=== PATIENT | female | born 1930 | race Caucasian/White ===

== ENCOUNTER 2016-10-09 10:49 | Inpatient (IN) | payer MEDICARE ==
[~2016-10-09] VITALS: Ht 160 cm; Wt 59.0 kg
[2016-10-09 12:04] LABS: BASO % 0 % (0-3); EOS % 0 % (0-3); HEMATOCRIT 36.7 % (36.0-47.0); HEMOGLOBIN 11.6 g/dL (12.0-15.5); LYMPH # 0.9 x10^3/uL (1.0-4.8); LYMPH % 5 % (24-48); MEAN CORPUSCULAR HEMOGLOBIN 28 pg (25-35); MEAN CORPUSCULAR HGB CONC 32 g/dL (31-37); MEAN CORPUSCULAR VOLUME 88 fL (79-100); MONO % 6 % (0-9); NEUT % 89 % (31-73); PLATELET COUNT 246 x10^3/uL (140-400); RED BLOOD COUNT 4.19 x10^6/uL (3.50-5.40); RED CELL DISTRIBUTION WIDTH 14.2 % (11.5-14.5); WHITE BLOOD COUNT 19.3 x10^3/uL (4.0-11.0)
[2016-10-09 12:19] LABS: ALBUMIN 2.9 g/dL (3.4-5.0); ALBUMIN/GLOBULIN RATIO 0.7 (1.0-1.7); CALCIUM 9.1 mg/dL (8.5-10.1); GFR 52.4; TOTAL BILIRUBIN 0.9 mg/dL (0.2-1.0); TOTAL PROTEIN 7.1 g/dL (6.4-8.2)
[2016-10-09 12:21] LABS: POTASSIUM 2.1 mmol/L (3.5-5.1)
--- NOTE | 2016-10-09 12:36 | RAD ---
Clinical indications: Altered mental status today. Left facial droop. History of stroke.. Technique: Noncontrast axial cross sectional scanning of the head was performed. PQRS Compliance Statement: One or more of the following individualized dose reduction techniques were utilized for this examination: 1. Automated exposure control 2. Adjustment of the mA and/or kV according to patient size 3. Use of iterative reconstruction technique Comparison: None at this facility. Findings: A ventricular shunt catheter is in place extending through the body of the right lateral ventricle extending across the midline through the foramen of [place]ro. No acute intracranial hemorrhage or midline shift or mass-effect or hydrocephalus or extra-axial fluid collection is seen. Moderate bilateral periventricular white matter hypodensity seen consistent chronic small vessel ischemic disease in this age group. There is some encephalomalacia along the ventricular shunt catheter tract. No skull fracture or pneumocephalus is seen. There is moderate mucosal thickening of the inferior lateral aspect of the left sphenoid sinus. There is mild mucosal thickening of the right ethmoid sinus. The maxillary sinuses are not completely seen in this study. The middle ear cavities and mastoid sinuses appear clear. Impression: No acute intracranial hemorrhage is seen. Ventricular shunt catheter in place without hydrocephalus. Chronic small vessel ischemic disease of the periventricular white matter. Mucosal thickening of the right ethmoid sinus and the left sphenoid sinus.
--- NOTE | 2016-10-09 12:43 | PHYS DOC ---
Past Medical History Past Medical History: Dementia, High Cholesterol, Hypertension Past Surgical History: No Surgical History Alcohol Use: None Drug Use: None Adult General Chief Complaint Chief Complaint: NEURO SYMPTOMS/DEFICITS HPI HPI 86-year-old female with history of dementia who [facility] in a [facility] presents [facility] the [facility] for evaluation. She was seen by a nurse this morning and was noted to not be as active as usual and had some shortness of breath. She has not been eating or drinking normally for the last 24 hours. Patient is unable to provide any history secondary to dementia [] Review of Systems Review of Systems Review of systems is unobtainable secondary to dementia Current Medications Current Medications Current Medications Medications (Trade) Dose Ordered Sig/Efren Start Time Stop Time Status Last Admin Dose Admin Acetaminophen 650 mg 650 mg PRN Q4HRS PRN 10/09/16 13:15 10/10/16 13:14 Ceftriaxone Sodium (Rocephin 1gm Ivpb For Omni) 50 ml @ 100 mls/hr 1X ONCE 10/09/16 13:15 10/09/16 13:44 Cancel Ondansetron HCl 4 mg 4 mg PRN Q8HRS PRN 10/09/16 13:15 10/10/16 13:14 Piperacillin Sod/ Tazobactam Sod (Zosyn Per Pharmacy) 1 each PRN DAILY PRN 10/09/16 13:30 Potassium Chloride 40 meq 40 meq 1X ONCE 10/09/16 13:15 10/09/16 17:19 DC Potassium Chloride/Sodium Chloride (KCl 20 Meq-NS 1,000 ml Iv Soln) 1,000 ml @ 75 mls/hr 1X ONCE 10/09/16 13:15 10/10/16 02:34 DC 10/09/16 13:55 75 MLS/HR Sodium Chloride (Iv Sodium Chloride 0.9% 1000ml Bag) 1,000 ml @ 150 mls/hr Q6H40M 10/09/16 13:15 10/10/16 13:14 Allergies Allergies Allergies Coded Allergies Type Severity Reaction Last Updated Verified pseudoephedrine Allergy Intermediate 10/09/16 Yes triprolidine Allergy Intermediate 10/09/16 Yes Physical Exam Physical Exam Constitutional: Frail, dehydrated and acutely ill. [] HENT: Normocephalic, atraumatic, bilateral external ears normal, oropharynx moist, no oral exudates, nose normal. [] Eyes: PERRLA, EOMI, conjunctiva normal, no discharge. [] Neck: Normal range of motion, no tenderness, supple, no stridor. [] Cardiovascular:Heart rate regular rhythm, no murmur [] Lungs & Thorax: Bilateral breath sounds clear to auscultation [] Abdomen: Bowel sounds normal, soft, no tenderness, no masses, no pulsatile masses. [] Skin: A 5 x 5 cm wound to the right elbow area which is dressed at this time but there is no surrounding erythema is somewhat painful to palpate but there is no fusiform swelling or findings consistent with an abscess [] Back: No tenderness, no CVA tenderness. [] Extremities: No tenderness, no cyanosis, no clubbing, ROM intact, no edema. [] Neurologic: Alert but confused, does not cooperate with formal neuro exam. [] Psychologic: Flat affect. [] Current Patient Data Vital Signs Vital Signs Date Time Temp Pulse Resp B/P Pulse Ox O2 Delivery O2 Flow Rate FiO2 10/09/16 13:18 98 28 130/66 94 Nasal Cannula 1 10/09/16 10:52 98.7 98.7 Lab Values Laboratory Tests Test 10/09/16 11:25 10/09/16 13:25 White Blood Count 19.3x10^3/uL (4.0-11.0) H Red Blood Count 4.19x10^6/uL (3.50-5.40) Hemoglobin 11.6g/dL (12.0-15.5) L Hematocrit 36.7% (36.0-47.0) Mean Corpuscular Volume 88fL (79-100) Mean Corpuscular Hemoglobin 28pg (25-35) Mean Corpuscular Hemoglobin Concent 32g/dL (31-37) Red Cell Distribution Width 14.2% (11.5-14.5) Platelet Count 246x10^3/uL (140-400) Neutrophils (%) (Auto) 89% (31-73) H Lymphocytes (%) (Auto) 5% (24-48) L Monocytes (%) (Auto) 6% (0-9) Eosinophils (%) (Auto) 0% (0-3) Basophils (%) (Auto) 0% (0-3) Neutrophils # (Auto) 17.1x10^3uL (1.8-7.7) H Lymphocytes # (Auto) 0.9x10^3/uL (1.0-4.8) L Monocytes # (Auto) 1.2x10^3/uL (0.0-1.1) H Eosinophils # (Auto) 0.0x10^3/uL (0.0-0.7) Basophils # (Auto) 0.0x10^3/uL (0.0-0.2) Segmented Neutrophils % 88% (35-66) H Band Neutrophils % 5% (0-9) Lymphocytes % 4% (24-48) L Monocytes % 3% (0-10) Toxic Granulation Slight Platelet Estimate Adequate (ADEQUATE) Sodium Level 140mmol/L (136-145) Potassium Level 2.1mmol/L (3.5-5.1) *L Chloride Level 97mmol/L (98-107) L Carbon Dioxide Level 30mmol/L (21-32) Anion Gap 13 (6-14) Blood Urea Nitrogen 13mg/dL (7-20) Creatinine 1.0mg/dL (0.6-1.0) Estimated GFR (Cockcroft-Gault) 52.4 BUN/Creatinine Ratio 13 (6-20) Glucose Level 153mg/dL (70-99) H Lactic Acid Level 2.9mmol/L (0.4-2.0) H Calcium Level 9.1mg/dL (8.5-10.1) Total Bilirubin 0.9mg/dL (0.2-1.0) Aspartate Amino Transferase (AST) 25U/L (15-37) Alanine Aminotransferase (ALT) 17U/L (14-59) Alkaline Phosphatase 88U/L (46-116) Troponin I Quantitative 0.025ng/mL (0.000-0.055) Total Protein 7.1g/dL (6.4-8.2) Albumin 2.9g/dL (3.4-5.0) L Albumin/Globulin Ratio 0.7 (1.0-1.7) L Urine Collection Type U cath Urine Color Yellow Urine Clarity Clear Urine pH 6.5 Urine Specific [place] 1.015 Urine Protein 100mg/dL (NEG-TRACE) Urine Glucose (UA) Negativemg/dL (NEG) Urine Ketones (Stick) 15mg/dL (NEG) Urine Blood Moderate (NEG) Urine Nitrite Positive (NEG) Urine Bilirubin Negative (NEG) Urine Urobilinogen Dipstick 0.2mg/dL (0.2 mg/dL) Urine Leukocyte Esterase Small (NEG) Urine RBC Occ/HPF (0-2) Urine WBC 11-20/HPF (0-4) Urine Transitional Epithelial Cells Occ/LPF Urine Bacteria Many/HPF (0-FEW) Urine Hyaline Casts Occasional/HPF Urine Mucus Marked/LPF Laboratory Tests 10/09/16 11:25 Laboratory Tests 10/09/16 11:25 EKG EKG [] Interpretation Time: EKG: Sinus tachycardia rate of [address]-T changes Radiology/Procedures Radiology/Procedures [] Impressions: PROCEDURE: HEAD WO CONTRAST Clinical indications: Altered mental status today. Left facial droop. History of stroke.. Technique: Noncontrast axial cross sectional scanning of the head was performed. PQRS Compliance Statement: One or more of the following individualized dose reduction techniques were utilized for this examination: 1. Automated exposure control 2. Adjustment of the mA and/or kV according to patient size 3. Use of iterative reconstruction technique Comparison: None at this facility. Findings: A ventricular shunt catheter is in place extending through the body of the right lateral ventricle extending across the midline through the foramen of [place]ro. No acute intracranial hemorrhage or midline shift or mass-effect or hydrocephalus or extra-axial fluid collection is seen. Moderate bilateral periventricular white matter hypodensity seen consistent chronic small vessel ischemic disease in this age group. There is some encephalomalacia along the ventricular shunt catheter tract. No skull fracture or pneumocephalus is seen. There is moderate mucosal thickening of the inferior lateral aspect of the left sphenoid sinus. There is mild mucosal thickening of the right ethmoid sinus. The maxillary sinuses are not completely seen in this study. The middle ear cavities and mastoid sinuses appear clear. Impression: No acute intracranial hemorrhage is seen. Ventricular shunt catheter in place without hydrocephalus. Chronic small vessel ischemic disease of the periventricular white matter. Mucosal thickening of the right ethmoid sinus and the left sphenoid sinus. Course & Med Decision Making Course & Med Decision Making Pertinent Labs and Imaging studies reviewed. (See chart for details) [ED course: Evaluation reveals a demented 86-year-old female who appears frail but not miss early acutely ill presented with decreased LOC. She did have an elevated white blood cell count likely due to her urinary tract infection however the wound on her right elbow could also be a culprit. Patient was started on Zosyn in the emergency department. She was also given 30 mL/kg of IV fluids. Her potassium was low and this was replaced by IV as the patient was unable to swallow a pill.] Dragon Disclaimer Dragon Disclaimer This electronic medical record was generated, in whole or in part, using a voice recognition dictation system. Departure Departure Impression: Primary Impression: Sepsis Additional Impressions: Hypokalemia Wound healing, delayed Disposition: 09 ADMITTED INPATIENT Admitting Physician: Gisel Pena Condition: STABLE Referrals: ESTEBAN MARSHALL MD (PCP) Problem Qualifiers Primary Impression: Sepsis Sepsis type: sepsis due to unspecified organism Qualified Code: A41.9 - Sepsis, unspecified organism VINOD DANIELLE DO Oct 09, 2016 12:43
[2016-10-09] MEDS ORDERED: ACETAMINOPHEN 325 MG TABLET. PO PRN (13:15)
[2016-10-09] MEDS: IV NORMAL SALINE 1000ML BAG 1,000 ML IV SCH ×2 (13:15→19:55)
[2016-10-09] MEDS ORDERED: ONDANSETRON PF 4 MG/2 ML VIAL. IV PRN (13:15)
[2016-10-09] MEDS ORDERED: CEFTRIAXONE 1GM IVPB FOR OMNI 50 ML IV ONE (13:15)
[2016-10-09] MEDS ORDERED: POTASSIUM CHLORIDE 20 MEQ TABLET.ER. PO ONE ×2 (13:15→15:30)
[2016-10-09] MEDS ORDERED: PIP/TAZO PER PHARMACY MC PRN (13:30)
[2016-10-09] MEDS ORDERED: PIPERACILLIN/TAZOBACTAM 3.375 GM in IV NORMAL SALINE 50ML 50 ML IV ONE (13:45)
[2016-10-09] MEDS ORDERED: IV NORMAL SALINE 1000ML BAG 1,000 ML IV ONE (13:45)
[2016-10-09 13:49] LABS: BILIRUBIN,URINE NEGATIVE (NEG); GLUCOSE,URINE NEGATIVE (NEG); NITRITE,URINE POSITIVE (NEG); PH,URINE 6.5; PROTEIN,URINE 100 mg/dL (NEG-TRACE); UROBILINOGEN,URINE 0.2 mg/dL (0.2 mg/dL)
--- NOTE | 2016-10-09 14:05 | RAD ---
Indication cough. A single view of the chest was obtained. No prior imaging of the chest is available. Heart size is mildly enlarged. There is no congestive heart failure. An acute parenchymal infiltrate in either lung is not seen. There are healed left rib fractures. Shunt tubing is noted. IMPRESSION: No acute finding apparent in the chest. Cardiomegaly
[2016-10-09 14:23] LABS: BACTERIA,URINE MANY /HPF (0-FEW); RBC,URINE OCC /HPF (0-2)
[2016-10-09 14:40] LABS: PLT ESTIMATE ADEQUATE (ADEQUATE); TOXIC GRANULATION SLIGHT
--- NOTE | 2016-10-09 14:58 | ACF ---
Admission Forms Criteria HYPONATREMIA; HYPERNATREMIA; HYPOKALEMIA; HYPERKALEMIA; HYPOCALCEMIA; HYPERCALCEMIA Clinical Indications for Inpatient Care (Place 'X' for any and all applicable criteria): Ongoing inpatient care may be indicated for ANY ONE of the following [G](1)(2)(3 )(5): [ ]I. Hyponatremia with ANY ONE of the following: [ ]a) Sodium less than 130 mEq/L (mmol/L) (new) (6)(22) [ ]b) Sodium less than 135 mEq/L (mmol/L) with ANY ONE of the following: [ ]i) Severe medical etiology requiring inpatient management (eg, heart failure, hypovolemia) [ ]ii) Altered mental status [ ]iii) Seizures [ ]II. Hypernatremia with ANY ONE of the following: [ ]a) Sodium greater than 155 mEq/L (mmol/L) [ ]b) Sodium greater than 150 mEq/L (mmol/L) with ANY ONE of the following: [ ] i) Altered mental status [ ]ii) Seizures [ ]iii) Severe medical etiology (eg, hypovolemia, diabetes insipidus) [ ]iv) Severe weakness [ ]v) Severe medical etiology (eg, hemolysis, infection, drug overdose) [X]III. Hypokalemia with ANY ONE of the following: [X]a) Potassium less than 2.5 mEq/L (mmol/L) despite outpatient and emergency treatment [ ]b) Potassium less than 3.0 mEq/L (mmol/L) with ANY ONE of the following: [ ]i) Weakness [ ]ii) Cardiac abnormality (eg, arrhythmia, conduction disturbance) [ ]iii) Cardiac ischemia [ ]iv) Ileus [ ]v) Ongoing medical cause requiring inpatient management. ( e.g., acute renal wasting, SIADH) [ ]vi) Other severe symptoms [ ] IV. Hyperkalemia with ANY ONE of the following: [ ]a) Potassium greater than 6.5 mEq/L (mmol/L) [ ]b) Potassium greater than 5 mEq/L (mmol/L) with ANY ONE of the following: [ ]i) Severe ECG findings [H] [ ]ii) Acute worsening of renal failure (creatinine greater than 2.5 mg/dL (221 micromoles/L) or significant elevation for age and size) [ ] V. Hypocalcemia with ANY ONE of the following: [ ]a) Calcium less than 7 mg/dL (1.75 mmol/L) despite outpatient and emergency treatment(19) [ ]b) Calcium less than 8 mg/dL (2 mmol/L) with significant symptoms or findings; examples include: [ ]i) Cardiac abnormality (eg, arrhythmia or conduction disturbance) [ ]ii) Altered mental status [ ]iii) Seizures [ ]iv) Breathing difficulty [ ]v) Muscle spasms [ ]. Hypercalcemia with ANY ONE of the following: [ ]a) Calcium greater than 14 mg/dL (3.5 mmol/L) [ ]b) Calcium greater than 12 mg/dL (3 mmol/L) with ANY ONE of the following: [ ]i) Significant dehydration or hypovolemia as indicated by ANY ONE of the following(2): [ ]1. Clinically significant dehydration as indicated by ANY ONE of the following: [ ]A. Acute loss of weight from baseline (5% of body weight in adults, 9% in pediatric patients) [ ]B. Hemodynamic instability [ ]C. Acute renal failure [ ]D. Serum sodium greater than 150 mEq/L (mmol/L) [ ]2) Dehydration that is persistent indicated by ALL of the following: [ ]A. Oral rehydration therapy not tolerated or insufficient to adequately correct dehydration [ ]B. Appropriate intravenous treatment (eg, fluids ) does not readily correct dehydration ie, after 12 to 24 hours of treatment) [ ]ii) Significant symptoms or findings; examples include: [ ]1) Altered mental status [ ]2) Cardiac abnormality (eg, arrhythmia, conduction disturbance) [ ]3) Cardiac abnormality (eg, arrhythmia, conduction disturbance) The original [employer] [facility] content created by [employer] has been revised. The portions of the content which have been revised are identified through the use of italic text or in bold, and [facility] has neither reviewed nor approved the modified material. All other unmodified content is copyright [facility] [employer] Please see references footnoted in the original [facility] [employer] edition 2016 Admission Criteria Met?: Yes ALIYA PAUL Oct 09, 2016 14:58
[2016-10-09 15:30] VITALS: BP 114/69
[2016-10-09] MEDS ORDERED: MAGNESIUM SULFATE 2GM 50 ML IV ONE (15:30)
--- NOTE | 2016-10-09 15:36 | PDOC1 ---
History and Physical Date of Admission Date of Admission DATE: 10/09/16 TIME: 15:29 Identification/Chief Complaint Chief Complaint lethargy Source Source: Caregiver, Chart review History of Present Illness History of Present Illness Ms. Cote, is a 86-year-old female admit with confusion and lethargy on history of dementia. Lives at the [facility]. Brought by family for lethargy and fatigue, poor PO intake. She has taken doxy for a couple days for a skin tear right elbow that appeared to have white pus at the base, no clear erythema to surrounding arm, no swelling confusion and lethargy today diarrhea started after seen in ER< stool X5 Past Medical History Cardiovascular: HTN CENTRAL NERVOUS SYSTEM: Dementia Family History Family History: No Significant Social History Smoke: No ALCOHOL: none Drugs: None Current Problem List Problem List Problems Medical Problems: (1) Hypokalemia Status: Acute (2) Sepsis Status: Acute Problems: Current Medications Current Medications Current Medications Potassium Chloride 40 meq 40 meq 1X ONCE PO ; Start 10/09/16 at 13:15; Stop 10/09 at 13:16; Status DC Ceftriaxone Sodium (Rocephin 1gm Ivpb For Omni) 50 ml @ 100 mls/hr 1X ONCE IV ; Start 10/09/16 at 13:15; Stop 10/09/16 at 13:44; Status Cancel Ondansetron HCl 4 mg 4 mg PRN Q8HRS PRN IV NAUSEA/VOMITING; Start 10/09/16 at 13 :15; Stop 10/10/16 at 13:14 Sodium Chloride (Iv Sodium Chloride 0.9% 1000ml Bag) 1,000 ml @ 150 mls/hr Q6H40M IV ; Start 10/09/16 at 13:15; Stop 10/10/16 at 13:14 Acetaminophen (Tylenol) 650 mg PRN Q4HRS PRN PO FEVER; Start 10/09/16 at 13:15; Stop 10/10/16 at 13:14 Albuterol/ Ipratropium 3 ml 3 ml RTQID NEB ; Start 10/09/16 at 16:00; Stop at 15:59 Potassium Chloride/Sodium Chloride (KCl 20 Meq-NS 1,000 ml Iv Soln) 1,000 ml @ 75 mls/hr 1X ONCE IV Last administered on 2/8/17at 13:55; Start 10/09/16 at 13: 15; Stop 10/10/16 at 02:34 Piperacillin Sod/ Tazobactam Sod 1 each 1 each PRN DAILY PRN MC SEE COMMENTS; Start 10/09/16 at 13:30 Piperacillin Sod/ Tazobactam Sod 3.375 gm/Sodium Chloride 50 ml @ 100 mls/hr ONCE ONCE IV Last administered on 10/09/16 13:56; Start 10/09/16 at 13:45; Stop 10/09/16 at 14:14; Status DC Sodium Chloride 1,000 ml @ 1,000 mls/hr 1X ONCE IV Last administered on 13:54; Start 10/09/16 at 13:45; Stop 10/09/16 at 14:44; Status DC Piperacillin Sod/ Tazobactam Sod/ Sodium Chloride (Zosyn/Iv Sodium Chloride 0.9 % 50ml) 50 ml @ 100 mls/hr Q6HRS IV ; Start 10/09/16 at 19:00 Potassium Chloride (Klor-Con) 20 meq DAILYWBKFT PO ; Start 10/10/16 at 08:00; Status UNV Potassium Chloride 40 meq 40 meq 1X ONCE PO ; Start 10/09/16 at 15:30; Stop 10/09 at 15:31; Status UNV Magnesium Sulfate/ Dextrose (Magnesium Sulfate PREMIX 2GM) 50 ml @ 25 mls/hr 1X ONCE IV ; Start 10/09/16 at 15:30; Stop 10/09/16 at 17:29; Status UNV Allergies Allergies: Coded Allergies: pseudoephedrine (Verified Allergy, Intermediate, 10/09/16) triprolidine (Verified Allergy, Intermediate, 10/09/16) ROS Review of System unable to complete, pt slowly verbal not talkative Physical Exam General: Alert, Cooperative, mild distress, Other (not oriented, more lethargic than baseline) HEENT: Atraumatic, PERRLA Lungs: Clear to auscultation, Other (low volume) Heart: S1S2 Abdomen: Normal bowel sounds, Soft Extremities: No edema, Normal pulses Skin: No rashes Neuro: Normal tone, Sensation intact Psych/Mental Status: Other (flat, not talkative, ) Vitals Vitals Vital Signs Date Time Temp Pulse Resp B/P Pulse Ox O2 Delivery O2 Flow Rate FiO2 10/09/16 14:48 100 28 183/79 94 Nasal Cannula 1 10/09/16 10:52 98.7 98.7 Labs Labs Laboratory Tests Test 10/09/16 11:25 10/09/16 13:25 White Blood Count 19.3x10^3/uL (4.0-11.0) Red Blood Count 4.19x10^6/uL (3.50-5.40) Hemoglobin 11.6g/dL (12.0-15.5) Hematocrit 36.7% (36.0-47.0) Mean Corpuscular Volume 88fL (79-100) Mean Corpuscular Hemoglobin 28pg (25-35) Mean Corpuscular Hemoglobin Concent 32g/dL (31-37) Red Cell Distribution Width 14.2% (11.5-14.5) Platelet Count 246x10^3/uL (140-400) Neutrophils (%) (Auto) 89% (31-73) Lymphocytes (%) (Auto) 5% (24-48) Monocytes (%) (Auto) 6% (0-9) Eosinophils (%) (Auto) 0% (0-3) Basophils (%) (Auto) 0% (0-3) Neutrophils # (Auto) 17.1x10^3uL (1.8-7.7) Lymphocytes # (Auto) 0.9x10^3/uL (1.0-4.8) Monocytes # (Auto) 1.2x10^3/uL (0.0-1.1) Eosinophils # (Auto) 0.0x10^3/uL (0.0-0.7) Basophils # (Auto) 0.0x10^3/uL (0.0-0.2) Segmented Neutrophils % 88% (35-66) Band Neutrophils % 5% (0-9) Lymphocytes % 4% (24-48) Monocytes % 3% (0-10) Toxic Granulation Slight Platelet Estimate Adequate (ADEQUATE) Sodium Level 140mmol/L (136-145) Potassium Level 2.1mmol/L (3.5-5.1) Chloride Level 97mmol/L (98-107) Carbon Dioxide Level 30mmol/L (21-32) Anion Gap 13 (6-14) Blood Urea Nitrogen 13mg/dL (7-20) Creatinine 1.0mg/dL (0.6-1.0) Estimated GFR (Cockcroft-Gault) 52.4 BUN/Creatinine Ratio 13 (6-20) Glucose Level 153mg/dL (70-99) Lactic Acid Level 2.9mmol/L (0.4-2.0) Calcium Level 9.1mg/dL (8.5-10.1) Total Bilirubin 0.9mg/dL (0.2-1.0) Aspartate Amino Transf (AST/SGOT) 25U/L (15-37) Alanine Aminotransferase (ALT/SGPT) 17U/L (14-59) Alkaline Phosphatase 88U/L (46-116) Troponin I Quantitative 0.025ng/mL (0.000-0.055) Total Protein 7.1g/dL (6.4-8.2) Albumin 2.9g/dL (3.4-5.0) Albumin/Globulin Ratio 0.7 (1.0-1.7) Urine Collection Type U cath Urine Color Yellow Urine Clarity Clear Urine pH 6.5 Urine Specific [place] 1.015 Urine Protein 100mg/dL (NEG-TRACE) Urine Glucose (UA) Negativemg/dL (NEG) Urine Ketones (Stick) 15mg/dL (NEG) Urine Blood Moderate (NEG) Urine Nitrite Positive (NEG) Urine Bilirubin Negative (NEG) Urine Urobilinogen Dipstick 0.2mg/dL (0.2 mg/dL) Urine Leukocyte Esterase Small (NEG) Urine RBC Occ/HPF (0-2) Urine WBC 11-20/HPF (0-4) Urine Transitional Epithelial Cells Occ/LPF Urine Bacteria Many/HPF (0-FEW) Urine Hyaline Casts Occasional/HPF Urine Mucus Marked/LPF Laboratory Tests Test 10/09/16 11:25 10/09/16 13:25 White Blood Count 19.3x10^3/uL (4.0-11.0) Red Blood Count 4.19x10^6/uL (3.50-5.40) Hemoglobin 11.6g/dL (12.0-15.5) Hematocrit 36.7% (36.0-47.0) Mean Corpuscular Volume 88fL (79-100) Mean Corpuscular Hemoglobin 28pg (25-35) Mean Corpuscular Hemoglobin Concent 32g/dL (31-37) Red Cell Distribution Width 14.2% (11.5-14.5) Platelet Count 246x10^3/uL (140-400) Neutrophils (%) (Auto) 89% (31-73) Lymphocytes (%) (Auto) 5% (24-48) Monocytes (%) (Auto) 6% (0-9) Eosinophils (%) (Auto) 0% (0-3) Basophils (%) (Auto) 0% (0-3) Neutrophils # (Auto) 17.1x10^3uL (1.8-7.7) Lymphocytes # (Auto) 0.9x10^3/uL (1.0-4.8) Monocytes # (Auto) 1.2x10^3/uL (0.0-1.1) Eosinophils # (Auto) 0.0x10^3/uL (0.0-0.7) Basophils # (Auto) 0.0x10^3/uL (0.0-0.2) Segmented Neutrophils % 88% (35-66) Band Neutrophils % 5% (0-9) Lymphocytes % 4% (24-48) Monocytes % 3% (0-10) Toxic Granulation Slight Platelet Estimate Adequate (ADEQUATE) Sodium Level 140mmol/L (136-145) Potassium Level 2.1mmol/L (3.5-5.1) Chloride Level 97mmol/L (98-107) Carbon Dioxide Level 30mmol/L (21-32) Anion Gap 13 (6-14) Blood Urea Nitrogen 13mg/dL (7-20) Creatinine 1.0mg/dL (0.6-1.0) Estimated GFR (Cockcroft-Gault) 52.4 BUN/Creatinine Ratio 13 (6-20) Glucose Level 153mg/dL (70-99) Lactic Acid Level 2.9mmol/L (0.4-2.0) Calcium Level 9.1mg/dL (8.5-10.1) Total Bilirubin 0.9mg/dL (0.2-1.0) Aspartate Amino Transf (AST/SGOT) 25U/L (15-37) Alanine Aminotransferase (ALT/SGPT) 17U/L (14-59) Alkaline Phosphatase 88U/L (46-116) Troponin I Quantitative 0.025ng/mL (0.000-0.055) Total Protein 7.1g/dL (6.4-8.2) Albumin 2.9g/dL (3.4-5.0) Albumin/Globulin Ratio 0.7 (1.0-1.7) Urine Collection Type U cath Urine Color Yellow Urine Clarity Clear Urine pH 6.5 Urine Specific [place] 1.015 Urine Protein 100mg/dL (NEG-TRACE) Urine Glucose (UA) Negativemg/dL (NEG) Urine Ketones (Stick) 15mg/dL (NEG) Urine Blood Moderate (NEG) Urine Nitrite Positive (NEG) Urine Bilirubin Negative (NEG) Urine Urobilinogen Dipstick 0.2mg/dL (0.2 mg/dL) Urine Leukocyte Esterase Small (NEG) Urine RBC Occ/HPF (0-2) Urine WBC 11-20/HPF (0-4) Urine Transitional Epithelial Cells Occ/LPF Urine Bacteria Many/HPF (0-FEW) Urine Hyaline Casts Occasional/HPF Urine Mucus Marked/LPF VTE Prophylaxis Ordered VTE Prophylaxis Devices: No VTE Pharmacological Prophylaxi: Yes Assessment/Plan Assessment/Plan sepsis w/ leukocytosis, tachypnea and tachycardia UTI diarrhea, isolate for c.diff, lives in NH dementia, w/ acute encephalopathy on chronic w/o behavioral weakness critical hypokalemia, replace X2 PO, give mag prev IV fluid with K+ mod malnutrition, encourage PO, nutrition consult DNR< discussed with family DANDRE WHEELER MD Oct 09, 2016 15:36
[2016-10-09] MEDS: IPRATRPIUM/ALBUTEROL 0.5/2.5MG 3 ML NEBU. NEB SCH ×2 (15:37→19:19)
[2016-10-09] MEDS ORDERED: ALBU1.25 NEB (16:03)
[2016-10-09] MEDS ORDERED: CALC1CAP7 PO (16:03)
[2016-10-09] MEDS ORDERED: L. A1CAP12 PO (16:03)
[2016-10-09] MEDS ORDERED: ASPI81TA2 PO (16:03)
[2016-10-09] MEDS ORDERED: SIMV40TA3 PO (16:09)
[2016-10-09] MEDS ORDERED: POLY119P4 PO (16:09)
[2016-10-09] MEDS ORDERED: ERGO500012 PO (16:09)
[2016-10-09] MEDS ORDERED: QUET25TA5 PO (16:09)
[2016-10-09] MEDS ORDERED: GUAI600T38 PO (16:09)
[2016-10-09] MEDS ORDERED: DOXY100T PO (16:09)
[2016-10-09] MEDS ORDERED: HYDR12.58 PO (16:09)
[2016-10-09] MEDS ORDERED: SERT50TA PO (16:09)
[2016-10-09] MEDS ORDERED: ALPR0.25 PO (16:09)
[2016-10-09] MEDS ORDERED: VITA200C7 PO (16:09)
[2016-10-09] MEDS ORDERED: DOCU-27 PO (16:09)
[2016-10-09] MEDS ORDERED: LISI-334 PO (16:09)
[2016-10-09] MEDS ORDERED: PANT40TA5 PO (16:09)
--- NOTE | 2016-10-09 16:29 | EKG ---
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
[2016-10-09 16:51] VITALS: BP 114/69
[2016-10-09] MEDS: ENOXAPARIN 40 MG/0.4 ML DISP.SYRIN. SQ SCH (17:00)
[2016-10-09] MEDS ORDERED: POTASSIUM CHLORIDE 20 MEQ/15 ML ORAL LIQUID. PEG ONE (17:30)
[2016-10-09] MEDS ORDERED: DOCUSATE SODIUM 100 MG CAPSULE PO PRN (17:30)
[2016-10-09] MEDS ORDERED: GUAIFENESIN ER 600 MG TABLET.ER PO PRN (17:30)
[2016-10-09] MEDS: VANCOMYCIN PER PHARMACY MC PRN (17:37)
[2016-10-09] MEDS ORDERED: NON FORMULARY ITEM (Albuterol Sulfate (Albuterol Sulfate Neb Soln) 1 VIAL) NEB SCH (18:00)
[2016-10-09] MEDS ORDERED: VANCOMYCIN 1.5 GM in IV NORMAL SALINE 500ML BAG 500 ML IV ONE (18:00)
[2016-10-09] MEDS: BUDESONIDE 0.5 MG/2 ML NEBU NEB SCH (19:19)
[2016-10-09 20:41] VITALS: BP 133/64
[2016-10-09] MEDS: SIMVASTATIN 40 MG TABLET. PO SCH (21:43)
[2016-10-09] MEDS: QUEtiapine 25 MG TABLET. PO SCH (21:44)
[2016-10-09] MEDS: PIPERACILLIN/TAZOBACTAM 3.375 GM in IV NORMAL SALINE 50ML 50 ML IV SCH (22:37)
[2016-10-09 23:19] VITALS: BP 91/41
[2016-10-10] MEDS: PIPERACILLIN/TAZOBACTAM 3.375 GM in IV NORMAL SALINE 50ML 50 ML IV SCH ×4 (00:45→18:21)
[2016-10-10] MEDS: IV NORMAL SALINE 1000ML BAG 1,000 ML IV SCH ×3 (02:35→12:56)
[2016-10-10 04:00] VITALS: BP 118/55
[2016-10-10 07:00] VITALS: BP 178/80
[2016-10-10] MEDS: IPRATRPIUM/ALBUTEROL 0.5/2.5MG 3 ML NEBU. NEB SCH ×4 (07:11→19:15)
[2016-10-10] MEDS: BUDESONIDE 0.5 MG/2 ML NEBU NEB SCH ×2 (07:11→19:17)
[2016-10-10 07:44] LABS: ALBUMIN 2.1 g/dL (3.4-5.0); ALBUMIN/GLOBULIN RATIO 0.6 (1.0-1.7); CALCIUM 7.9 mg/dL (8.5-10.1); GFR 52.4; TOTAL BILIRUBIN 0.5 mg/dL (0.2-1.0); TOTAL PROTEIN 5.4 g/dL (6.4-8.2)
[2016-10-10 07:49] LABS: BASO # 0.1 x10^3/uL (0.0-0.2); BASO % 1 % (0-3); EOS % 1 % (0-3); HEMATOCRIT 27.5 % (36.0-47.0); LYMPH # 1.3 x10^3/uL (1.0-4.8); LYMPH % 13 % (24-48); MEAN CORPUSCULAR HEMOGLOBIN 29 pg (25-35); MEAN CORPUSCULAR HGB CONC 33 g/dL (31-37); MEAN CORPUSCULAR VOLUME 89 fL (79-100); MONO % 10 % (0-9); NEUT % 75 % (31-73); PLATELET COUNT 197 x10^3/uL (140-400); RED BLOOD COUNT 3.09 x10^6/uL (3.50-5.40); RED CELL DISTRIBUTION WIDTH 14.6 % (11.5-14.5); WHITE BLOOD COUNT 10.1 x10^3/uL (4.0-11.0)
[2016-10-10 07:53] LABS: POTASSIUM 2.4 mmol/L (3.5-5.1)
[2016-10-10] MEDS ORDERED: POTASSIUM CHLORIDE 20 MEQ TABLET.ER. PO SCH (08:00)
[2016-10-10] MEDS ORDERED: POTASSIUM CHLORIDE 20 MEQ/15 ML ORAL LIQUID. PO ONE ×2 (08:30→14:30)
--- NOTE | 2016-10-10 08:41 | PDOC ---
PROGRESS NOTES Chief Complaint Chief Complaint sepsis UTI diarrhea, dementia, now improved near baseline weakness, acquired hypokalemia, persists mod malnutrition, History of Present Illness History of Present Illness encourage PO, nutrition consult PT and OT today cont abx cx pending ID to follow Vitals Vitals Vital Signs Date Time Temp Pulse Resp B/P Pulse Ox O2 Delivery O2 Flow Rate FiO2 10/10/16 07:13 97 Nasal Cannula 1.0 10/10/16 07:00 98.1 96 18 178/80 98.1 Physical Exam Physical Exam appears much improved to family, more alert, able to feed herself General: Alert, Cooperative, mild distress, Other (not oriented, more lethargic than baseline) Heart: Regular rate Lungs: Clear Abdomen: Normal bowel sounds, Soft Extremities: No edema, Normal pulses Skin: No rashes Labs LABS Laboratory Tests Test 10/09/16 11:25 10/09/16 13:25 10/09/16 15:15 10/09/16 19:05 White Blood Count 19.3x10^3/uL (4.0-11.0) Red Blood Count 4.19x10^6/uL (3.50-5.40) Hemoglobin 11.6g/dL (12.0-15.5) Hematocrit 36.7% (36.0-47.0) Mean Corpuscular Volume 88fL (79-100) Mean Corpuscular Hemoglobin 28pg (25-35) Mean Corpuscular Hemoglobin Concent 32g/dL (31-37) Red Cell Distribution Width 14.2% (11.5-14.5) Platelet Count 246x10^3/uL (140-400) Neutrophils (%) (Auto) 89% (31-73) Lymphocytes (%) (Auto) 5% (24-48) Monocytes (%) (Auto) 6% (0-9) Eosinophils (%) (Auto) 0% (0-3) Basophils (%) (Auto) 0% (0-3) Neutrophils # (Auto) 17.1x10^3uL (1.8-7.7) Lymphocytes # (Auto) 0.9x10^3/uL (1.0-4.8) Monocytes # (Auto) 1.2x10^3/uL (0.0-1.1) Eosinophils # (Auto) 0.0x10^3/uL (0.0-0.7) Basophils # (Auto) 0.0x10^3/uL (0.0-0.2) Segmented Neutrophils % 88% (35-66) Band Neutrophils % 5% (0-9) Lymphocytes % 4% (24-48) Monocytes % 3% (0-10) Toxic Granulation Slight Platelet Estimate Adequate (ADEQUATE) Sodium Level 140mmol/L (136-145) Potassium Level 2.1mmol/L (3.5-5.1) Chloride Level 97mmol/L (98-107) Carbon Dioxide Level 30mmol/L (21-32) Anion Gap 13 (6-14) Blood Urea Nitrogen 13mg/dL (7-20) Creatinine 1.0mg/dL (0.6-1.0) Estimated GFR (Cockcroft-Gault) 52.4 BUN/Creatinine Ratio 13 (6-20) Glucose Level 153mg/dL (70-99) Lactic Acid Level 2.9mmol/L (0.4-2.0) 1.2mmol/L (0.4-2.0) Calcium Level 9.1mg/dL (8.5-10.1) Total Bilirubin 0.9mg/dL (0.2-1.0) Aspartate Amino Transf (AST/SGOT) 25U/L (15-37) Alanine Aminotransferase (ALT/SGPT) 17U/L (14-59) Alkaline Phosphatase 88U/L (46-116) Troponin I Quantitative 0.025ng/mL (0.000-0.055) 0.052ng/mL (0.000-0.055) Total Protein 7.1g/dL (6.4-8.2) Albumin 2.9g/dL (3.4-5.0) Albumin/Globulin Ratio 0.7 (1.0-1.7) Urine Collection Type U cath Urine Color Yellow Urine Clarity Clear Urine pH 6.5 Urine Specific [place] 1.015 Urine Protein 100mg/dL (NEG-TRACE) Urine Glucose (UA) Negativemg/dL (NEG) Urine Ketones (Stick) 15mg/dL (NEG) Urine Blood Moderate (NEG) Urine Nitrite Positive (NEG) Urine Bilirubin Negative (NEG) Urine Urobilinogen Dipstick 0.2mg/dL (0.2 mg/dL) Urine Leukocyte Esterase Small (NEG) Urine RBC Occ/HPF (0-2) Urine WBC 11-20/HPF (0-4) Urine Transitional Epithelial Cells Occ/LPF Urine Bacteria Many/HPF (0-FEW) Urine Hyaline Casts Occasional/HPF Urine Mucus Marked/LPF Test 10/10/16 00:32 White Blood Count 10.1x10^3/uL (4.0-11.0) Red Blood Count 3.09x10^6/uL (3.50-5.40) Hemoglobin 9.0g/dL (12.0-15.5) Hematocrit 27.5% (36.0-47.0) Mean Corpuscular Volume 89fL (79-100) Mean Corpuscular Hemoglobin 29pg (25-35) Mean Corpuscular Hemoglobin Concent 33g/dL (31-37) Red Cell Distribution Width 14.6% (11.5-14.5) Platelet Count 197x10^3/uL (140-400) Neutrophils (%) (Auto) 75% (31-73) Lymphocytes (%) (Auto) 13% (24-48) Monocytes (%) (Auto) 10% (0-9) Eosinophils (%) (Auto) 1% (0-3) Basophils (%) (Auto) 1% (0-3) Neutrophils # (Auto) 7.6x10^3uL (1.8-7.7) Lymphocytes # (Auto) 1.3x10^3/uL (1.0-4.8) Monocytes # (Auto) 1.0x10^3/uL (0.0-1.1) Eosinophils # (Auto) 0.1x10^3/uL (0.0-0.7) Basophils # (Auto) 0.1x10^3/uL (0.0-0.2) Sodium Level 144mmol/L (136-145) Potassium Level 2.4mmol/L (3.5-5.1) Chloride Level 106mmol/L (98-107) Carbon Dioxide Level 27mmol/L (21-32) Anion Gap 11 (6-14) Blood Urea Nitrogen 16mg/dL (7-20) Creatinine 1.0mg/dL (0.6-1.0) Estimated GFR (Cockcroft-Gault) 52.4 BUN/Creatinine Ratio 16 (6-20) Glucose Level 108mg/dL (70-99) Calcium Level 7.9mg/dL (8.5-10.1) Magnesium Level 2.2mg/dL (1.8-2.4) Total Bilirubin 0.5mg/dL (0.2-1.0) Aspartate Amino Transf (AST/SGOT) 20U/L (15-37) Alanine Aminotransferase (ALT/SGPT) 12U/L (14-59) Alkaline Phosphatase 62U/L (46-116) Troponin I Quantitative 0.052ng/mL (0.000-0.055) Total Protein 5.4g/dL (6.4-8.2) Albumin 2.1g/dL (3.4-5.0) Albumin/Globulin Ratio 0.6 (1.0-1.7) Review of Systems Review of Systems no n,vd loose stool yesterday, none this AM Assessment and Plan Assessmemt and Plan cont abx PT and ot Problems Medical Problems: (1) Hypokalemia Status: Acute (2) Sepsis Status: Acute (3) Wound healing, delayed Status: Acute Problems: Comment Review of Relevant I have reviewed the following items qasim (where applicable) has been applied. Labs Laboratory Tests Test 10/09/16 11:25 10/09/16 13:25 10/09/16 15:15 10/09/16 19:05 White Blood Count 19.3x10^3/uL (4.0-11.0) Red Blood Count 4.19x10^6/uL (3.50-5.40) Hemoglobin 11.6g/dL (12.0-15.5) Hematocrit 36.7% (36.0-47.0) Mean Corpuscular Volume 88fL (79-100) Mean Corpuscular Hemoglobin 28pg (25-35) Mean Corpuscular Hemoglobin Concent 32g/dL (31-37) Red Cell Distribution Width 14.2% (11.5-14.5) Platelet Count 246x10^3/uL (140-400) Neutrophils (%) (Auto) 89% (31-73) Lymphocytes (%) (Auto) 5% (24-48) Monocytes (%) (Auto) 6% (0-9) Eosinophils (%) (Auto) 0% (0-3) Basophils (%) (Auto) 0% (0-3) Neutrophils # (Auto) 17.1x10^3uL (1.8-7.7) Lymphocytes # (Auto) 0.9x10^3/uL (1.0-4.8) Monocytes # (Auto) 1.2x10^3/uL (0.0-1.1) Eosinophils # (Auto) 0.0x10^3/uL (0.0-0.7) Basophils # (Auto) 0.0x10^3/uL (0.0-0.2) Segmented Neutrophils % 88% (35-66) Band Neutrophils % 5% (0-9) Lymphocytes % 4% (24-48) Monocytes % 3% (0-10) Toxic Granulation Slight Platelet Estimate Adequate (ADEQUATE) Sodium Level 140mmol/L (136-145) Potassium Level 2.1mmol/L (3.5-5.1) Chloride Level 97mmol/L (98-107) Carbon Dioxide Level 30mmol/L (21-32) Anion Gap 13 (6-14) Blood Urea Nitrogen 13mg/dL (7-20) Creatinine 1.0mg/dL (0.6-1.0) Estimated GFR (Cockcroft-Gault) 52.4 BUN/Creatinine Ratio 13 (6-20) Glucose Level 153mg/dL (70-99) Lactic Acid Level 2.9mmol/L (0.4-2.0) 1.2mmol/L (0.4-2.0) Calcium Level 9.1mg/dL (8.5-10.1) Total Bilirubin 0.9mg/dL (0.2-1.0) Aspartate Amino Transf (AST/SGOT) 25U/L (15-37) Alanine Aminotransferase (ALT/SGPT) 17U/L (14-59) Alkaline Phosphatase 88U/L (46-116) Troponin I Quantitative 0.025ng/mL (0.000-0.055) 0.052ng/mL (0.000-0.055) Total Protein 7.1g/dL (6.4-8.2) Albumin 2.9g/dL (3.4-5.0) Albumin/Globulin Ratio 0.7 (1.0-1.7) Urine Collection Type U cath Urine Color Yellow Urine Clarity Clear Urine pH 6.5 Urine Specific [place] 1.015 Urine Protein 100mg/dL (NEG-TRACE) Urine Glucose (UA) Negativemg/dL (NEG) Urine Ketones (Stick) 15mg/dL (NEG) Urine Blood Moderate (NEG) Urine Nitrite Positive (NEG) Urine Bilirubin Negative (NEG) Urine Urobilinogen Dipstick 0.2mg/dL (0.2 mg/dL) Urine Leukocyte Esterase Small (NEG) Urine RBC Occ/HPF (0-2) Urine WBC 11-20/HPF (0-4) Urine Transitional Epithelial Cells Occ/LPF Urine Bacteria Many/HPF (0-FEW) Urine Hyaline Casts Occasional/HPF Urine Mucus Marked/LPF Test 10/10/16 00:32 White Blood Count 10.1x10^3/uL (4.0-11.0) Red Blood Count 3.09x10^6/uL (3.50-5.40) Hemoglobin 9.0g/dL (12.0-15.5) Hematocrit 27.5% (36.0-47.0) Mean Corpuscular Volume 89fL (79-100) Mean Corpuscular Hemoglobin 29pg (25-35) Mean Corpuscular Hemoglobin Concent 33g/dL (31-37) Red Cell Distribution Width 14.6% (11.5-14.5) Platelet Count 197x10^3/uL (140-400) Neutrophils (%) (Auto) 75% (31-73) Lymphocytes (%) (Auto) 13% (24-48) Monocytes (%) (Auto) 10% (0-9) Eosinophils (%) (Auto) 1% (0-3) Basophils (%) (Auto) 1% (0-3) Neutrophils # (Auto) 7.6x10^3uL (1.8-7.7) Lymphocytes # (Auto) 1.3x10^3/uL (1.0-4.8) Monocytes # (Auto) 1.0x10^3/uL (0.0-1.1) Eosinophils # (Auto) 0.1x10^3/uL (0.0-0.7) Basophils # (Auto) 0.1x10^3/uL (0.0-0.2) Sodium Level 144mmol/L (136-145) Potassium Level 2.4mmol/L (3.5-5.1) Chloride Level 106mmol/L (98-107) Carbon Dioxide Level 27mmol/L (21-32) Anion Gap 11 (6-14) Blood Urea Nitrogen 16mg/dL (7-20) Creatinine 1.0mg/dL (0.6-1.0) Estimated GFR (Cockcroft-Gault) 52.4 BUN/Creatinine Ratio 16 (6-20) Glucose Level 108mg/dL (70-99) Calcium Level 7.9mg/dL (8.5-10.1) Magnesium Level 2.2mg/dL (1.8-2.4) Total Bilirubin 0.5mg/dL (0.2-1.0) Aspartate Amino Transf (AST/SGOT) 20U/L (15-37) Alanine Aminotransferase (ALT/SGPT) 12U/L (14-59) Alkaline Phosphatase 62U/L (46-116) Troponin I Quantitative 0.052ng/mL (0.000-0.055) Total Protein 5.4g/dL (6.4-8.2) Albumin 2.1g/dL (3.4-5.0) Albumin/Globulin Ratio 0.6 (1.0-1.7) Laboratory Tests Test 10/09/16 11:25 10/09/16 13:25 10/09/16 15:15 10/09/16 19:05 White Blood Count 19.3x10^3/uL (4.0-11.0) Red Blood Count 4.19x10^6/uL (3.50-5.40) Hemoglobin 11.6g/dL (12.0-15.5) Hematocrit 36.7% (36.0-47.0) Mean Corpuscular Volume 88fL (79-100) Mean Corpuscular Hemoglobin 28pg (25-35) Mean Corpuscular Hemoglobin Concent 32g/dL (31-37) Red Cell Distribution Width 14.2% (11.5-14.5) Platelet Count 246x10^3/uL (140-400) Neutrophils (%) (Auto) 89% (31-73) Lymphocytes (%) (Auto) 5% (24-48) Monocytes (%) (Auto) 6% (0-9) Eosinophils (%) (Auto) 0% (0-3) Basophils (%) (Auto) 0% (0-3) Neutrophils # (Auto) 17.1x10^3uL (1.8-7.7) Lymphocytes # (Auto) 0.9x10^3/uL (1.0-4.8) Monocytes # (Auto) 1.2x10^3/uL (0.0-1.1) Eosinophils # (Auto) 0.0x10^3/uL (0.0-0.7) Basophils # (Auto) 0.0x10^3/uL (0.0-0.2) Segmented Neutrophils % 88% (35-66) Band Neutrophils % 5% (0-9) Lymphocytes % 4% (24-48) Monocytes % 3% (0-10) Toxic Granulation Slight Platelet Estimate Adequate (ADEQUATE) Sodium Level 140mmol/L (136-145) Potassium Level 2.1mmol/L (3.5-5.1) Chloride Level 97mmol/L (98-107) Carbon Dioxide Level 30mmol/L (21-32) Anion Gap 13 (6-14) Blood Urea Nitrogen 13mg/dL (7-20) Creatinine 1.0mg/dL (0.6-1.0) Estimated GFR (Cockcroft-Gault) 52.4 BUN/Creatinine Ratio 13 (6-20) Glucose Level 153mg/dL (70-99) Lactic Acid Level 2.9mmol/L (0.4-2.0) 1.2mmol/L (0.4-2.0) Calcium Level 9.1mg/dL (8.5-10.1) Total Bilirubin 0.9mg/dL (0.2-1.0) Aspartate Amino Transf (AST/SGOT) 25U/L (15-37) Alanine Aminotransferase (ALT/SGPT) 17U/L (14-59) Alkaline Phosphatase 88U/L (46-116) Troponin I Quantitative 0.025ng/mL (0.000-0.055) 0.052ng/mL (0.000-0.055) Total Protein 7.1g/dL (6.4-8.2) Albumin 2.9g/dL (3.4-5.0) Albumin/Globulin Ratio 0.7 (1.0-1.7) Urine Collection Type U cath Urine Color Yellow Urine Clarity Clear Urine pH 6.5 Urine Specific [place] 1.015 Urine Protein 100mg/dL (NEG-TRACE) Urine Glucose (UA) Negativemg/dL (NEG) Urine Ketones (Stick) 15mg/dL (NEG) Urine Blood Moderate (NEG) Urine Nitrite Positive (NEG) Urine Bilirubin Negative (NEG) Urine Urobilinogen Dipstick 0.2mg/dL (0.2 mg/dL) Urine Leukocyte Esterase Small (NEG) Urine RBC Occ/HPF (0-2) Urine WBC 11-20/HPF (0-4) Urine Transitional Epithelial Cells Occ/LPF Urine Bacteria Many/HPF (0-FEW) Urine Hyaline Casts Occasional/HPF Urine Mucus Marked/LPF Test 10/10/16 00:32 White Blood Count 10.1x10^3/uL (4.0-11.0) Red Blood Count 3.09x10^6/uL (3.50-5.40) Hemoglobin 9.0g/dL (12.0-15.5) Hematocrit 27.5% (36.0-47.0) Mean Corpuscular Volume 89fL (79-100) Mean Corpuscular Hemoglobin 29pg (25-35) Mean Corpuscular Hemoglobin Concent 33g/dL (31-37) Red Cell Distribution Width 14.6% (11.5-14.5) Platelet Count 197x10^3/uL (140-400) Neutrophils (%) (Auto) 75% (31-73) Lymphocytes (%) (Auto) 13% (24-48) Monocytes (%) (Auto) 10% (0-9) Eosinophils (%) (Auto) 1% (0-3) Basophils (%) (Auto) 1% (0-3) Neutrophils # (Auto) 7.6x10^3uL (1.8-7.7) Lymphocytes # (Auto) 1.3x10^3/uL (1.0-4.8) Monocytes # (Auto) 1.0x10^3/uL (0.0-1.1) Eosinophils # (Auto) 0.1x10^3/uL (0.0-0.7) Basophils # (Auto) 0.1x10^3/uL (0.0-0.2) Sodium Level 144mmol/L (136-145) Potassium Level 2.4mmol/L (3.5-5.1) Chloride Level 106mmol/L (98-107) Carbon Dioxide Level 27mmol/L (21-32) Anion Gap 11 (6-14) Blood Urea Nitrogen 16mg/dL (7-20) Creatinine 1.0mg/dL (0.6-1.0) Estimated GFR (Cockcroft-Gault) 52.4 BUN/Creatinine Ratio 16 (6-20) Glucose Level 108mg/dL (70-99) Calcium Level 7.9mg/dL (8.5-10.1) Magnesium Level 2.2mg/dL (1.8-2.4) Total Bilirubin 0.5mg/dL (0.2-1.0) Aspartate Amino Transf (AST/SGOT) 20U/L (15-37) Alanine Aminotransferase (ALT/SGPT) 12U/L (14-59) Alkaline Phosphatase 62U/L (46-116) Troponin I Quantitative 0.052ng/mL (0.000-0.055) Total Protein 5.4g/dL (6.4-8.2) Albumin 2.1g/dL (3.4-5.0) Albumin/Globulin Ratio 0.6 (1.0-1.7) Medications Current Medications Potassium Chloride 40 meq 40 meq 1X ONCE PO ; Start 10/09/16 at 13:15; Stop 10/09 at 17:19; Status DC Ceftriaxone Sodium (Rocephin 1gm Ivpb For Omni) 50 ml @ 100 mls/hr 1X ONCE IV ; Start 10/09/16 at 13:15; Stop 10/09/16 at 13:44; Status Cancel Ondansetron HCl 4 mg 4 mg PRN Q8HRS PRN IV NAUSEA/VOMITING; Start 10/09/16 at 13 :15; Stop 10/10/16 at 13:14 Sodium Chloride (Iv Sodium Chloride 0.9% 1000ml Bag) 1,000 ml @ 150 mls/hr Q6H40M IV ; Start 10/09/16 at 13:15; Stop 10/10/16 at 13:14 Acetaminophen (Tylenol) 650 mg PRN Q4HRS PRN PO FEVER; Start 10/09/16 at 13:15; Stop 10/10/16 at 13:14 Albuterol/ Ipratropium 3 ml 3 ml RTQID NEB Last administered on 10/10/16 07:11 ; Start 10/09/16 at 16:00; Stop 10/10/16 at 15:59 Potassium Chloride/Sodium Chloride (KCl 20 Meq-NS 1,000 ml Iv Soln) 1,000 ml @ 75 mls/hr 1X ONCE IV Last administered on 10/09/16 13:55; Start 10/09/16 at 13: 15; Stop 10/10/16 at 02:34; Status DC Piperacillin Sod/ Tazobactam Sod 1 each 1 each PRN DAILY PRN MC SEE COMMENTS; Start 10/09/16 at 13:30 Piperacillin Sod/ Tazobactam Sod 3.375 gm/Sodium Chloride 50 ml @ 100 mls/hr ONCE ONCE IV Last administered on 10/09/16 13:56; Start 10/09/16 at 13:45; Stop 10/09/16 at 14:14; Status DC Sodium Chloride 1,000 ml @ 1,000 mls/hr 1X ONCE IV Last administered on 13:54; Start 10/09/16 at 13:45; Stop 10/09/16 at 14:44; Status DC Piperacillin Sod/ Tazobactam Sod/ Sodium Chloride (Zosyn/Iv Sodium Chloride 0.9 % 50ml) 50 ml @ 100 mls/hr Q6HRS IV Last administered on 10/10/16 06:00; Start 10/09/16 at 19:00 Potassium Chloride (Klor-Con) 20 meq DAILYWBKFT PO ; Start 10/10/16 at 08:00; Stop 10/10/16 at 08:23; Status DC Potassium Chloride 40 meq 40 meq 1X ONCE PO ; Start 10/09/16 at 15:30; Stop 10/09 at 15:31; Status DC Magnesium Sulfate/ Dextrose (Magnesium Sulfate PREMIX 2GM) 50 ml @ 25 mls/hr 1X ONCE IV Last administered on 10/09/16 17:09; Start 10/09/16 at 15:30; Stop 10/09/16 at 17:29; Status DC Enoxaparin Sodium (Lovenox Per Pharmacy Prophylaxis Dosing) 1 each PRN DAILY PRN MC SEE COMMENTS; Start 10/09/16 at 15:45 Budesonide (Pulmicort) 0.5 mg RTBID NEB Last administered on 10/10/16 07:11; Start 10/09/16 at 20:00 Vancomycin HCl (Vanco Per Pharmacy) 1 each PRN DAILY PRN MC SEE COMMENTS Last administered on 10/09/16 17:37; Start 10/09/16 at 17:00 Enoxaparin Sodium 40 mg 40 mg Q24H SQ Last administered on 10/09/16 17:00; Start 10/09/16 at 17:00 Vancomycin HCl 1.5 gm/Sodium Chloride 500 ml @ 250 mls/hr 1X ONCE IV Last administered on 10/09/16 19:54; Start 10/09/16 at 18:00; Stop 10/09/16 at 19:59; Status DC Vancomycin HCl/ Sodium Chloride (Iv Sodium Chloride 0.9% 250ml) 250 ml @ 250 mls/hr Q24H IV ; Start 10/10/16 at 18:00 Vancomycin HCl 1 each 1X ONCE MC ; Start 10/11/16 at 17:30; Stop 10/11/16 at 17 :31 Potassium Chloride (KCl Oral Soln) 40 meq 1X ONCE PEG Last administered on 10/09 18:08; Start 10/09/16 at 17:30; Stop 10/09/16 at 17:31; Status DC Alprazolam (Xanax) 0.25 mg Q6HRS PRN PO ANXIETY / AGITATION; Start 10/09/16 at 17:30 Aspirin (Children'S Aspirin) 81 mg DAILYWBKFT PO ; Start 10/10/16 at 08:00 Docusate Sodium (Colace) 100 mg BID PRN PO CONSTIPATION; Start 10/09/16 at 17:30 Guaifenesin (Mucinex) 600 mg BID PRN PO cough; Start 10/09/16 at 17:30 Lisinopril (Prinivil) 20 mg DAILY PO ; Start 10/10/16 at 09:00 Pantoprazole Sodium (Protonix) 40 mg DAILYAC PO ; Start 10/10/16 at 07:30 Polyethylene Glycol (miraLAX PACKET) 17 gm DAILY PO ; Start 10/10/16 at 09:00 Quetiapine Fumarate (SEROquel) 12.5 mg HS PO Last administered on 10/09/16 21: 44; Start 10/09/16 at 21:00 Sertraline HCl (Zoloft) 50 mg DAILY PO ; Start 10/10/16 at 09:00 Simvastatin (Zocor) 40 mg HS PO Last administered on 10/09/16 21:43; Start 10/09 at 21:00 Non-Formulary Medication 1 vial Q6HRS NEB ; Start 10/09/16 at 18:00; Status UNV Calcium/Vitamin D (Oscal D 500mg/ 200uts) 1 tab DAILYWBKFT PO ; Start 10/10/16 at 08:00 Albuterol Sulfate (Ventolin Neb Soln) 2.5 mg PRN Q6HRS PRN NEB SHORTNESS OF BREATH; Start 10/09/16 at 17:45 Potassium Chloride 20 meq 20 meq DAILY08 PEG ; Start 10/10/16 at 09:00 Potassium Chloride (KCl Premix 10meq) 100 ml @ 100 mls/hr Q1H IV ; Start at 09:00; Stop 10/10/16 at 10:59 Potassium Chloride (KCl Oral Soln) 40 meq 1X ONCE PO ; Start 10/10/16 at 08:30; Stop 10/10/16 at 08:31; Status DC Active Scripts Active Reported Xanax (Alprazolam) 0.25 Mg Tablet 0.25 Mg PO Q6-8HRS PRN Vitamin E (Vitamin E Acetate) 200 Unit Capsule 200 Unit PO DAILY Simvastatin 40 Mg Tablet 40 Mg PO HS Zoloft (Sertraline Hcl) 50 Mg Tablet 50 Mg PO DAILY Seroquel (Quetiapine Fumarate) 25 Mg Tablet 12.5 Mg PO HS Pantoprazole Sodium 40 Mg Tablet.dr 40 Mg PO DAILY Miralax (Polyethylene Glycol 3350) 119 Gm Powder 17 Gm PO DAILY Lisinopril 20 Mg Tablet 20 Mg PO DAILY Hydrochlorothiazide Tablet (Hydrochlorothiazide) 12.5 Mg Tablet 1 Tab PO DAILY Mucinex (Guaifenesin) 600 Mg Tablet.er 600 Mg PO Vitamin D2 (Ergocalciferol (Vitamin D2)) 50,000 Unit Capsule 1 Cap PO WEEKLY PRN Doxycycline Hyclate 100 Mg Tablet 100 Mg PO BID Colace (Docusate Sodium) 100 Mg Capsule 1 Cap PO BID PRN Calcium 600 + Vit D 400 Softgl (Calcium Carbonate/Vitamin D3) 1 Each Capsule 0.5 Each PO DAILY Aspirin 81 Mg Tab.chew 81 Mg PO DAILY Albuterol Sulfate Neb Soln (Albuterol Sulfate) 1.25 Mg/3 Ml Vial.neb 1 Vial NEB Q6HRS Acidophilus Capsule (L. Acidophilus/Pectin, [place]) 1 Each Capsule 2 Each PO AFTRNOON Vitals/I & O Vital Sign - Last 24 Hours 10/09/16 10/09/16 10/09/16 10/09/16 10:52 11:18 11:48 12:48 Temp 98.7 98.7 Pulse 122 112 112 104 Resp 37 28 B/P 149/88 145/83 140/65 116/56 Pulse Ox 89 94 94 94 O2 Delivery Room Air Nasal Cannula Nasal Cannula Nasal Cannula O2 Flow Rate 1 1 1 10/09/16 10/09/16 10/09/16 10/09/16 13:18 13:51 14:18 14:48 Pulse 98 96 100 Resp 28 B/P 130/66 178/79 183/79 Pulse Ox 94 96 96 94 O2 Delivery Nasal Cannula Nasal Cannula Nasal Cannula Nasal Cannula O2 Flow Rate 1 1.0 1 1 10/09/16 10/09/16 10/09/16 10/09/16 15:30 15:38 16:11 16:51 Temp 98.8 98.8 98.8 98.8 Pulse 99 99 Resp 18 B/P 114/69 114/69 Pulse Ox 95 95 O2 Delivery Nasal Cannula Nasal Cannula Nasal Cannula O2 Flow Rate 1.0 1.0 1.0 10/09/16 10/09/16 10/09/16 10/09/16 19:20 19:22 20:00 20:41 Temp 97.9 97.9 Pulse 94 Resp 18 B/P 133/64 Pulse Ox 91 O2 Delivery Nasal Cannula Nasal Cannula Nasal Cannula Nasal Cannula O2 Flow Rate 1.0 1.0 1.0 1.0 10/09/16 10/10/16 10/10/16 10/10/16 23:19 04:00 07:00 07:13 Temp 97.9 97.4 98.1 97.9 97.4 98.1 Pulse 81 65 96 Resp 16 20 18 B/P 91/41 118/55 178/80 Pulse Ox 93 97 94 97 O2 Delivery Nasal Cannula Nasal Cannula Nasal Cannula Nasal Cannula O2 Flow Rate 1.0 1.0 1.0 1.0 Intake and Output 10/09/16 10/09/16 10/10/16 15:00 23:00 07:00 Intake Total 1050 ml Balance 1050 ml DANDRE WHEELER MD Oct 10, 2016 08:41
[2016-10-10] MEDS: SERTRALINE 50 MG TABLET. PO SCH (08:53)
[2016-10-10] MEDS: ASPIRIN 81 MG TAB.CHEW PO SCH (08:53)
[2016-10-10] MEDS: PANTOPRAZOLE 40 MG TABLET. PO SCH (08:54)
[2016-10-10] MEDS: LISINOPRIL 20 MG TABLET PO SCH (08:54)
[2016-10-10] MEDS: CALCIUM CARB/VIT D3 500/200 TABLET PO SCH (08:54)
[2016-10-10] MEDS: POLYETHYLENE GLYCOL 3350 17 GM PACKET. PO SCH (09:00)
--- NOTE | 2016-10-10 09:29 | PDOC ---
Infectious Disease Note ROS ROS GEN: Denies fevers, chills, sweats HEENT: Denies blurred vision, sore throat CV: Denies chest pain RESP: Denies shortness of air, cough GI: Denies n/v/d NEURO: Denies confusion, dizziness MSK: Denies weakness, joint pain/swelling Vital Sign Vital Signs Vital Signs Date Time Temp Pulse Resp B/P Pulse Ox O2 Delivery O2 Flow Rate FiO2 10/10/16 08:54 96 178/80 10/10/16 07:13 97 Nasal Cannula 1.0 10/10/16 07:00 98.1 18 98.1 Physical Exam PHYSICAL EXAM GENERAL: NAD, Alert, Baseline dementia HEENT: PERRL, OC/OP NECK: Supple, no JVD, no LN LUNGS: Clear HEART: S1S2, no gallop, no murmur ABD: Soft, NT, no organomegaly, no rebound EXT: No edema, no cyanosis; Clean, dry, intact dressing on Right elbow LENS CLEANER: Alert, no focal neurologic deficit SKIN: No rash IV: ok Labs Lab Laboratory Tests Test 10/09/16 11:25 10/09/16 13:25 10/09/16 15:15 10/09/16 19:05 White Blood Count 19.3x10^3/uL (4.0-11.0) Red Blood Count 4.19x10^6/uL (3.50-5.40) Hemoglobin 11.6g/dL (12.0-15.5) Hematocrit 36.7% (36.0-47.0) Mean Corpuscular Volume 88fL (79-100) Mean Corpuscular Hemoglobin 28pg (25-35) Mean Corpuscular Hemoglobin Concent 32g/dL (31-37) Red Cell Distribution Width 14.2% (11.5-14.5) Platelet Count 246x10^3/uL (140-400) Neutrophils (%) (Auto) 89% (31-73) Lymphocytes (%) (Auto) 5% (24-48) Monocytes (%) (Auto) 6% (0-9) Eosinophils (%) (Auto) 0% (0-3) Basophils (%) (Auto) 0% (0-3) Neutrophils # (Auto) 17.1x10^3uL (1.8-7.7) Lymphocytes # (Auto) 0.9x10^3/uL (1.0-4.8) Monocytes # (Auto) 1.2x10^3/uL (0.0-1.1) Eosinophils # (Auto) 0.0x10^3/uL (0.0-0.7) Basophils # (Auto) 0.0x10^3/uL (0.0-0.2) Segmented Neutrophils % 88% (35-66) Band Neutrophils % 5% (0-9) Lymphocytes % 4% (24-48) Monocytes % 3% (0-10) Toxic Granulation Slight Platelet Estimate Adequate (ADEQUATE) Sodium Level 140mmol/L (136-145) Potassium Level 2.1mmol/L (3.5-5.1) Chloride Level 97mmol/L (98-107) Carbon Dioxide Level 30mmol/L (21-32) Anion Gap 13 (6-14) Blood Urea Nitrogen 13mg/dL (7-20) Creatinine 1.0mg/dL (0.6-1.0) Estimated GFR (Cockcroft-Gault) 52.4 BUN/Creatinine Ratio 13 (6-20) Glucose Level 153mg/dL (70-99) Lactic Acid Level 2.9mmol/L (0.4-2.0) 1.2mmol/L (0.4-2.0) Calcium Level 9.1mg/dL (8.5-10.1) Total Bilirubin 0.9mg/dL (0.2-1.0) Aspartate Amino Transf (AST/SGOT) 25U/L (15-37) Alanine Aminotransferase (ALT/SGPT) 17U/L (14-59) Alkaline Phosphatase 88U/L (46-116) Troponin I Quantitative 0.025ng/mL (0.000-0.055) 0.052ng/mL (0.000-0.055) Total Protein 7.1g/dL (6.4-8.2) Albumin 2.9g/dL (3.4-5.0) Albumin/Globulin Ratio 0.7 (1.0-1.7) Urine Collection Type U cath Urine Color Yellow Urine Clarity Clear Urine pH 6.5 Urine Specific [place] 1.015 Urine Protein 100mg/dL (NEG-TRACE) Urine Glucose (UA) Negativemg/dL (NEG) Urine Ketones (Stick) 15mg/dL (NEG) Urine Blood Moderate (NEG) Urine Nitrite Positive (NEG) Urine Bilirubin Negative (NEG) Urine Urobilinogen Dipstick 0.2mg/dL (0.2 mg/dL) Urine Leukocyte Esterase Small (NEG) Urine RBC Occ/HPF (0-2) Urine WBC 11-20/HPF (0-4) Urine Transitional Epithelial Cells Occ/LPF Urine Bacteria Many/HPF (0-FEW) Urine Hyaline Casts Occasional/HPF Urine Mucus Marked/LPF Test 10/10/16 00:32 White Blood Count 10.1x10^3/uL (4.0-11.0) Red Blood Count 3.09x10^6/uL (3.50-5.40) Hemoglobin 9.0g/dL (12.0-15.5) Hematocrit 27.5% (36.0-47.0) Mean Corpuscular Volume 89fL (79-100) Mean Corpuscular Hemoglobin 29pg (25-35) Mean Corpuscular Hemoglobin Concent 33g/dL (31-37) Red Cell Distribution Width 14.6% (11.5-14.5) Platelet Count 197x10^3/uL (140-400) Neutrophils (%) (Auto) 75% (31-73) Lymphocytes (%) (Auto) 13% (24-48) Monocytes (%) (Auto) 10% (0-9) Eosinophils (%) (Auto) 1% (0-3) Basophils (%) (Auto) 1% (0-3) Neutrophils # (Auto) 7.6x10^3uL (1.8-7.7) Lymphocytes # (Auto) 1.3x10^3/uL (1.0-4.8) Monocytes # (Auto) 1.0x10^3/uL (0.0-1.1) Eosinophils # (Auto) 0.1x10^3/uL (0.0-0.7) Basophils # (Auto) 0.1x10^3/uL (0.0-0.2) Sodium Level 144mmol/L (136-145) Potassium Level 2.4mmol/L (3.5-5.1) Chloride Level 106mmol/L (98-107) Carbon Dioxide Level 27mmol/L (21-32) Anion Gap 11 (6-14) Blood Urea Nitrogen 16mg/dL (7-20) Creatinine 1.0mg/dL (0.6-1.0) Estimated GFR (Cockcroft-Gault) 52.4 BUN/Creatinine Ratio 16 (6-20) Glucose Level 108mg/dL (70-99) Calcium Level 7.9mg/dL (8.5-10.1) Magnesium Level 2.2mg/dL (1.8-2.4) Total Bilirubin 0.5mg/dL (0.2-1.0) Aspartate Amino Transf (AST/SGOT) 20U/L (15-37) Alanine Aminotransferase (ALT/SGPT) 12U/L (14-59) Alkaline Phosphatase 62U/L (46-116) Troponin I Quantitative 0.052ng/mL (0.000-0.055) Total Protein 5.4g/dL (6.4-8.2) Albumin 2.1g/dL (3.4-5.0) Albumin/Globulin Ratio 0.6 (1.0-1.7) Objective Assessment UTI -POA Leukocytosis Elbow wound - clean Diarrhea for 2 to 3 weeks per daughter but was on miralax and colace Dementia Plan Plan of Care Cont Vancomycin and Zosyn F/u lab and cx - c-diff Local wound care D/w daughter Thank you # [phone] TERRY SEAY MD Oct 10, 2016 09:29
[2016-10-10] MEDS: POTASSIUM CHLORIDE 20 MEQ/15 ML ORAL LIQUID. PEG SCH (09:41)
[2016-10-10] MEDS: POTASSIUM CHLORIDE 10MEQ 100 ML IV SCH ×4 (09:45→22:16)
[2016-10-10 11:13] VITALS: BP 176/90
[2016-10-10] MEDS: ALBUTEROL SULFATE 2.5 MG/3 ML NEBU. NEB PRN (13:37)
[2016-10-10] MEDS: VANCOMYCIN PER PHARMACY MC PRN (14:00)
[2016-10-10] MEDS: ALPRAZOLAM 0.25 MG TABLET PO PRN (14:24)
[2016-10-10] MEDS ORDERED: ACETAMINOPHEN 325 MG TABLET. PO ONE (14:30)
[2016-10-10 14:54] VITALS: BP 164/85
[2016-10-10] MEDS: ENOXAPARIN 40 MG/0.4 ML DISP.SYRIN. SQ SCH (17:11)
[2016-10-10] MEDS: METRONIDAZOLE 500mg PREMIX 100 ML IV SCH (17:12)
[2016-10-10] MEDS ORDERED: VANCOMYCIN 1 GM in IV NORMAL SALINE 250ML 250 ML IV SCH (18:00)
[2016-10-10 19:00] VITALS: BP 105/60
[2016-10-10] MEDS: SIMVASTATIN 40 MG TABLET. PO SCH (20:29)
[2016-10-10] MEDS: QUEtiapine 25 MG TABLET. PO SCH (20:34)
[2016-10-10 23:00] VITALS: BP 96/49
[2016-10-11] MEDS: METRONIDAZOLE 500mg PREMIX 100 ML IV SCH ×2 (01:09→05:15)
[2016-10-11 03:00] VITALS: BP 100/60
[2016-10-11] MEDS: PIPERACILLIN/TAZOBACTAM 3.375 GM in IV NORMAL SALINE 50ML 50 ML IV SCH ×3 (03:02→11:48)
[2016-10-11] MEDS: IV NORMAL SALINE 1000ML BAG 1,000 ML IV SCH ×2 (03:02→15:40)
--- NOTE | 2016-10-11 06:11 | EKG ---
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
[2016-10-11 07:00] VITALS: BP 151/89
[2016-10-11] MEDS: BUDESONIDE 0.5 MG/2 ML NEBU NEB SCH ×2 (07:32→18:09)
[2016-10-11] MEDS: IPRATRPIUM/ALBUTEROL 0.5/2.5MG 3 ML NEBU. NEB SCH ×4 (07:32→18:07)
[2016-10-11] MEDS: POLYETHYLENE GLYCOL 3350 17 GM PACKET. PO SCH ×2 (09:00→09:12)
[2016-10-11 09:07] LABS: ALBUMIN 2.1 g/dL (3.4-5.0); ALBUMIN/GLOBULIN RATIO 0.6 (1.0-1.7); CALCIUM 8.3 mg/dL (8.5-10.1); CREATININE 0.8 mg/dL (0.6-1.0); GFR 67.8; POTASSIUM 3.1 mmol/L (3.5-5.1); TOTAL BILIRUBIN 0.5 mg/dL (0.2-1.0); TOTAL PROTEIN 5.5 g/dL (6.4-8.2)
[2016-10-11] MEDS: CALCIUM CARB/VIT D3 500/200 TABLET PO SCH (09:12)
[2016-10-11] MEDS: SERTRALINE 50 MG TABLET. PO SCH (09:12)
[2016-10-11] MEDS: ASPIRIN 81 MG TAB.CHEW PO SCH (09:13)
[2016-10-11] MEDS: POTASSIUM CHLORIDE 20 MEQ/15 ML ORAL LIQUID. PEG SCH (09:13)
[2016-10-11] MEDS: PANTOPRAZOLE 40 MG TABLET. PO SCH (09:13)
[2016-10-11] MEDS: LISINOPRIL 20 MG TABLET PO SCH (09:13)
[2016-10-11] MEDS ORDERED: POTASSIUM CHLORIDE 20 MEQ/15 ML ORAL LIQUID. PO ONE (10:15)
[2016-10-11 11:05] VITALS: BP 140/76
[2016-10-11] MEDS: POTASSIUM CHLORIDE 10MEQ 100 ML IV SCH ×2 (11:48→13:32)
[2016-10-11] MEDS: ALPRAZOLAM 0.25 MG TABLET PO PRN (13:31)
--- NOTE | 2016-10-11 14:06 | PDOC ---
Infectious Disease Note Subjective Subjective Better. Eating ROS ROS GEN: Denies fevers, chills, sweats HEENT: Denies blurred vision, sore throat CV: Denies chest pain RESP: Denies shortness of air, cough GI: Denies n/v/d NEURO: Denies confusion, dizziness MSK: Denies weakness, joint pain/swelling Vital Sign Vital Signs Vital Signs Date Time Temp Pulse Resp B/P Pulse Ox O2 Delivery O2 Flow Rate FiO2 10/11/16 11:15 94 Nasal Cannula 2.0 10/11/16 11:05 98.0 102 22 140/76 98.0 Physical Exam PHYSICAL EXAM GENERAL: NAD, Alert, in chair NECK: Supple, no JVD, no LN LUNGS: Clear HEART: S1S2, no gallop, no murmur ABD: Soft, NT, no organomegaly, no rebound EXT: No edema, no cyanosis LAMPS TESTER AND INSPECTOR: Alert, pleasant SKIN: No rash IV: ok Labs Lab Laboratory Tests Test 10/11/16 08:35 Sodium Level 145mmol/L (136-145) Potassium Level 3.1mmol/L (3.5-5.1) Chloride Level 110mmol/L (98-107) Carbon Dioxide Level 23mmol/L (21-32) Anion Gap 12 (6-14) Blood Urea Nitrogen 17mg/dL (7-20) Creatinine 0.8mg/dL (0.6-1.0) Estimated GFR (Cockcroft-Gault) 67.8 BUN/Creatinine Ratio 21 (6-20) Glucose Level 118mg/dL (70-99) Calcium Level 8.3mg/dL (8.5-10.1) Total Bilirubin 0.5mg/dL (0.2-1.0) Aspartate Amino Transf (AST/SGOT) 26U/L (15-37) Alanine Aminotransferase (ALT/SGPT) 17U/L (14-59) Alkaline Phosphatase 86U/L (46-116) Total Protein 5.5g/dL (6.4-8.2) Albumin 2.1g/dL (3.4-5.0) Albumin/Globulin Ratio 0.6 (1.0-1.7) Micro Klebsiella pneumoniae Greater than 100,000 colony forming units per mL ANTIMICROBIAL SUSCEPTIBILITY Final Comment S = Susceptible; I = Intermediate; R = Resistant P = Positive; N = Negative MICS are expressed in micrograms per mL Antibiotic RSLT#1 RSLT#2 RSLT#3 RSLT#4 Amoxicillin/Clavulanic Acid S Ampicillin R Cefepime S Ceftriaxone S Cefuroxime S Cephalothin S Ciprofloxacin S Ertapenem S Gentamicin S Imipenem S Levofloxacin S Nitrofurantoin S Piperacillin R Tetracycline S Tobramycin S Trimethoprim/Sulfa S Objective Assessment Klebsiella UTI -POA Leukocytosis Elbow wound - clean Diarrhea for 2 to 3 weeks per daughter but was on miralax and colace Dementia Plan Plan of Care Discont Vancomycin and Zosyn Po cefpodox for 5 days D/w daughter TERRY SEAY MD Oct 11, 2016 14:06
[2016-10-11 14:52] VITALS: BP 158/86
[2016-10-11] MEDS ORDERED: MAGNESIUM SULFATE 2GM 50 ML IV ONE (15:45)
--- NOTE | 2016-10-11 15:45 | PDOC ---
PROGRESS NOTES Chief Complaint Chief Complaint sepsis UTI diarrhea, dementia, now improved near baseline weakness, acquired hypokalemia, alittle better, cont replacement, add mag mod malnutrition, History of Present Illness History of Present Illness encourage PO, nutrition consult - poor PO intake PT and OT cont abx - ID following Vitals Vitals Vital Signs Date Time Temp Pulse Resp B/P Pulse Ox O2 Delivery O2 Flow Rate FiO2 10/11/16 15:15 Room Air 10/11/16 14:52 97.8 105 24 158/86 90 2.0 97.8 Physical Exam Physical Exam appears much improved to family, more alert, able to feed herself General: Alert, Cooperative, mild distress, Other (not oriented, more lethargic than baseline) Heart: Regular rate Lungs: Clear Abdomen: Normal bowel sounds, Soft Extremities: No edema, Normal pulses Skin: No rashes Labs LABS Laboratory Tests Test 10/11/16 08:35 Sodium Level 145mmol/L (136-145) Potassium Level 3.1mmol/L (3.5-5.1) Chloride Level 110mmol/L (98-107) Carbon Dioxide Level 23mmol/L (21-32) Anion Gap 12 (6-14) Blood Urea Nitrogen 17mg/dL (7-20) Creatinine 0.8mg/dL (0.6-1.0) Estimated GFR (Cockcroft-Gault) 67.8 BUN/Creatinine Ratio 21 (6-20) Glucose Level 118mg/dL (70-99) Calcium Level 8.3mg/dL (8.5-10.1) Total Bilirubin 0.5mg/dL (0.2-1.0) Aspartate Amino Transf (AST/SGOT) 26U/L (15-37) Alanine Aminotransferase (ALT/SGPT) 17U/L (14-59) Alkaline Phosphatase 86U/L (46-116) Total Protein 5.5g/dL (6.4-8.2) Albumin 2.1g/dL (3.4-5.0) Albumin/Globulin Ratio 0.6 (1.0-1.7) Review of Systems Review of Systems nausea weakness lethargy Assessment and Plan Assessmemt and Plan cont curretn and supportive care Problems Medical Problems: (1) Hypokalemia Status: Acute (2) Sepsis Status: Acute (3) Wound healing, delayed Status: Acute Problems: Comment Review of Relevant I have reviewed the following items qasim (where applicable) has been applied. Labs Laboratory Tests Test 10/09/16 19:05 10/10/16 00:32 10/10/16 14:00 10/11/16 08:35 Troponin I Quantitative 0.052ng/mL (0.000-0.055) 0.052ng/mL (0.000-0.055) White Blood Count 10.1x10^3/uL (4.0-11.0) Red Blood Count 3.09x10^6/uL (3.50-5.40) Hemoglobin 9.0g/dL (12.0-15.5) Hematocrit 27.5% (36.0-47.0) Mean Corpuscular Volume 89fL (79-100) Mean Corpuscular Hemoglobin 29pg (25-35) Mean Corpuscular Hemoglobin Concent 33g/dL (31-37) Red Cell Distribution Width 14.6% (11.5-14.5) Platelet Count 197x10^3/uL (140-400) Neutrophils (%) (Auto) 75% (31-73) Lymphocytes (%) (Auto) 13% (24-48) Monocytes (%) (Auto) 10% (0-9) Eosinophils (%) (Auto) 1% (0-3) Basophils (%) (Auto) 1% (0-3) Neutrophils # (Auto) 7.6x10^3uL (1.8-7.7) Lymphocytes # (Auto) 1.3x10^3/uL (1.0-4.8) Monocytes # (Auto) 1.0x10^3/uL (0.0-1.1) Eosinophils # (Auto) 0.1x10^3/uL (0.0-0.7) Basophils # (Auto) 0.1x10^3/uL (0.0-0.2) Sodium Level 144mmol/L (136-145) 145mmol/L (136-145) Potassium Level 2.4mmol/L (3.5-5.1) 3.1mmol/L (3.5-5.1) Chloride Level 106mmol/L (98-107) 110mmol/L (98-107) Carbon Dioxide Level 27mmol/L (21-32) 23mmol/L (21-32) Anion Gap 11 (6-14) 12 (6-14) Blood Urea Nitrogen 16mg/dL (7-20) 17mg/dL (7-20) Creatinine 1.0mg/dL (0.6-1.0) 0.8mg/dL (0.6-1.0) Estimated GFR (Cockcroft-Gault) 52.4 67.8 BUN/Creatinine Ratio 16 (6-20) 21 (6-20) Glucose Level 108mg/dL (70-99) 118mg/dL (70-99) Calcium Level 7.9mg/dL (8.5-10.1) 8.3mg/dL (8.5-10.1) Magnesium Level 2.2mg/dL (1.8-2.4) Total Bilirubin 0.5mg/dL (0.2-1.0) 0.5mg/dL (0.2-1.0) Aspartate Amino Transf (AST/SGOT) 20U/L (15-37) 26U/L (15-37) Alanine Aminotransferase (ALT/SGPT) 12U/L (14-59) 17U/L (14-59) Alkaline Phosphatase 62U/L (46-116) 86U/L (46-116) Total Protein 5.4g/dL (6.4-8.2) 5.5g/dL (6.4-8.2) Albumin 2.1g/dL (3.4-5.0) 2.1g/dL (3.4-5.0) Albumin/Globulin Ratio 0.6 (1.0-1.7) 0.6 (1.0-1.7) Clostridium difficile Toxin (PCR) Negative (Negative) Laboratory Tests Test 10/11/16 08:35 Sodium Level 145mmol/L (136-145) Potassium Level 3.1mmol/L (3.5-5.1) Chloride Level 110mmol/L (98-107) Carbon Dioxide Level 23mmol/L (21-32) Anion Gap 12 (6-14) Blood Urea Nitrogen 17mg/dL (7-20) Creatinine 0.8mg/dL (0.6-1.0) Estimated GFR (Cockcroft-Gault) 67.8 BUN/Creatinine Ratio 21 (6-20) Glucose Level 118mg/dL (70-99) Calcium Level 8.3mg/dL (8.5-10.1) Total Bilirubin 0.5mg/dL (0.2-1.0) Aspartate Amino Transf (AST/SGOT) 26U/L (15-37) Alanine Aminotransferase (ALT/SGPT) 17U/L (14-59) Alkaline Phosphatase 86U/L (46-116) Total Protein 5.5g/dL (6.4-8.2) Albumin 2.1g/dL (3.4-5.0) Albumin/Globulin Ratio 0.6 (1.0-1.7) Microbiology 10/10/16 Blood Culture - Preliminary, Resulted NO GROWTH AFTER 1 DAY 10/09/16 Urine Culture - Final, Complete 10/09/16 Urine Culture Result 1 (ROSSY) - Final, Complete 10/09/16 Antimicrobic Susceptibility - Final, Complete Medications Current Medications Potassium Chloride 40 meq 40 meq 1X ONCE PO ; Start 10/09/16 at 13:15; Stop 10/09 at 17:19; Status DC Ceftriaxone Sodium (Rocephin 1gm Ivpb For Omni) 50 ml @ 100 mls/hr 1X ONCE IV ; Start 10/09/16 at 13:15; Stop 10/09/16 at 13:44; Status Cancel Ondansetron HCl 4 mg 4 mg PRN Q8HRS PRN IV NAUSEA/VOMITING; Start 10/09/16 at 13 :15; Stop 10/10/16 at 13:14; Status DC Sodium Chloride (Iv Sodium Chloride 0.9% 1000ml Bag) 1,000 ml @ 150 mls/hr Q6H40M IV Last administered on 10/10/16 08:00; Start 10/09/16 at 13:15; Stop 10/10/16 at 13:14; Status DC Acetaminophen (Tylenol) 650 mg PRN Q4HRS PRN PO FEVER; Start 10/09/16 at 13:15; Stop 10/10/16 at 13:14; Status DC Albuterol/ Ipratropium 3 ml 3 ml RTQID NEB Last administered on 10/10/16 15:36 ; Start 10/09/16 at 16:00; Stop 10/10/16 at 15:59; Status DC Potassium Chloride/Sodium Chloride (KCl 20 Meq-NS 1,000 ml Iv Soln) 1,000 ml @ 75 mls/hr 1X ONCE IV Last administered on 10/09/16 13:55; Start 10/09/16 at 13: 15; Stop 10/10/16 at 02:34; Status DC Piperacillin Sod/ Tazobactam Sod 1 each 1 each PRN DAILY PRN MC SEE COMMENTS; Start 10/09/16 at 13:30; Stop 10/10/16 at 13:56; Status DC Piperacillin Sod/ Tazobactam Sod 3.375 gm/Sodium Chloride 50 ml @ 100 mls/hr ONCE ONCE IV Last administered on 10/09/16 13:56; Start 10/09/16 at 13:45; Stop 10/09/16 at 14:14; Status DC Sodium Chloride 1,000 ml @ 1,000 mls/hr 1X ONCE IV Last administered on 13:54; Start 10/09/16 at 13:45; Stop 10/09/16 at 14:44; Status DC Piperacillin Sod/ Tazobactam Sod/ Sodium Chloride (Zosyn/Iv Sodium Chloride 0.9 % 50ml) 50 ml @ 100 mls/hr Q6HRS IV Last administered on 10/11/16 11:48; Start 10/09/16 at 19:00; Stop 10/11/16 at 14:06; Status DC Potassium Chloride (Klor-Con) 20 meq DAILYWBKFT PO ; Start 10/10/16 at 08:00; Stop 10/10/16 at 08:23; Status DC Potassium Chloride 40 meq 40 meq 1X ONCE PO ; Start 10/09/16 at 15:30; Stop 10/09 at 15:31; Status DC Magnesium Sulfate/ Dextrose (Magnesium Sulfate PREMIX 2GM) 50 ml @ 25 mls/hr 1X ONCE IV Last administered on 10/09/16 17:09; Start 10/09/16 at 15:30; Stop 10/09/16 at 17:29; Status DC Enoxaparin Sodium (Lovenox Per Pharmacy Prophylaxis Dosing) 1 each PRN DAILY PRN MC SEE COMMENTS; Start 10/09/16 at 15:45; Stop 10/10/16 at 13:48; Status DC Budesonide (Pulmicort) 0.5 mg RTBID NEB Last administered on 10/11/16 07:32; Start 10/09/16 at 20:00 Vancomycin HCl (Vanco Per Pharmacy) 1 each PRN DAILY PRN MC SEE COMMENTS Last administered on 10/10/16 14:00; Start 10/09/16 at 17:00; Stop 10/11/16 at 14:06; Status DC Enoxaparin Sodium 40 mg 40 mg Q24H SQ Last administered on 10/10/16 17:11; Start 10/09/16 at 17:00 Vancomycin HCl 1.5 gm/Sodium Chloride 500 ml @ 250 mls/hr 1X ONCE IV Last administered on 10/09/16 19:54; Start 10/09/16 at 18:00; Stop 10/09/16 at 19:59; Status DC Vancomycin HCl/ Sodium Chloride (Iv Sodium Chloride 0.9% 250ml) 250 ml @ 250 mls/hr Q24H IV Last administered on 10/10/16 19:15; Start 10/10/16 at 18:00; Stop 10/11/16 at 14:19; Status DC Vancomycin HCl 1 each 1X ONCE MC ; Start 10/11/16 at 17:30; Stop 10/11/16 at 17 :30; Status DC Potassium Chloride (KCl Oral Soln) 40 meq 1X ONCE PEG Last administered on 10/09 18:08; Start 10/09/16 at 17:30; Stop 10/09/16 at 17:31; Status DC Alprazolam (Xanax) 0.25 mg Q6HRS PRN PO ANXIETY / AGITATION Last administered on 10/11/16 13:31; Start 10/09/16 at 17:30 Aspirin (Children'S Aspirin) 81 mg DAILYWBKFT PO Last administered on 09:13; Start 10/10/16 at 08:00 Docusate Sodium (Colace) 100 mg BID PRN PO CONSTIPATION; Start 10/09/16 at 17:30 Guaifenesin (Mucinex) 600 mg BID PRN PO cough; Start 10/09/16 at 17:30 Lisinopril (Prinivil) 20 mg DAILY PO Last administered on 10/11/16 09:13; Start 10/10/16 at 09:00 Pantoprazole Sodium (Protonix) 40 mg DAILYAC PO Last administered on 10/11/16 09:13; Start 10/10/16 at 07:30 Polyethylene Glycol (miraLAX PACKET) 17 gm DAILY PO ; Start 10/10/16 at 09:00 Quetiapine Fumarate (SEROquel) 12.5 mg HS PO Last administered on 10/10/16 20: 34; Start 10/09/16 at 21:00 Sertraline HCl (Zoloft) 50 mg DAILY PO Last administered on 10/11/16 09:12; Start 10/10/16 at 09:00 Simvastatin (Zocor) 40 mg HS PO Last administered on 10/10/16 20:29; Start 10/09 at 21:00 Non-Formulary Medication 1 vial Q6HRS NEB ; Start 10/09/16 at 18:00; Status UNV Calcium/Vitamin D (Oscal D 500mg/ 200uts) 1 tab DAILYWBKFT PO Last administered on 10/11/16 09:12; Start 10/10/16 at 08:00 Albuterol Sulfate (Ventolin Neb Soln) 2.5 mg PRN Q6HRS PRN NEB SHORTNESS OF BREATH Last administered on 10/10/16 13:37; Start 10/09/16 at 17:45 Potassium Chloride 20 meq 20 meq DAILY08 PEG Last administered on 10/11/16 09: 13; Start 10/10/16 at 09:00 Potassium Chloride (KCl Premix 10meq) 100 ml @ 100 mls/hr Q1H IV Last administered on 10/10/16 10:58; Start 10/10/16 at 09:00; Stop 10/10/16 at 10:59; Status DC Potassium Chloride 40 meq 40 meq 1X ONCE PO Last administered on 10/10/16 08: 54; Start 10/10/16 at 08:30; Stop 10/10/16 at 08:31; Status DC Sodium Chloride (Iv Sodium Chloride 0.9% 1000ml Bag) 1,000 ml @ 75 mls/hr [id number] IV Last administered on 10/11/16 03:02; Start 10/10/16 at 13:00 Acetaminophen (Tylenol) 650 mg 1X ONCE PO Last administered on 10/10/16 14:25 ; Start 10/10/16 at 14:30; Stop 10/10/16 at 14:31; Status DC Potassium Chloride (KCl Oral Soln) 40 meq 1X ONCE PO ; Start 10/10/16 at 14:30; Stop 10/10/16 at 14:31; Status DC Albuterol/ Ipratropium 3 ml 3 ml RTQID NEB Last administered on 10/11/16 15:15 ; Start 10/10/16 at 16:00 Potassium Chloride 100 ml @ 100 mls/hr Q1H IV Last administered on 10/10/16 22 :16; Start 10/10/16 at 17:00; Stop 10/10/16 at 18:59; Status DC Metronidazole 100 ml @ 100 mls/hr Q8HRS IV Last administered on 10/11/16 05: 15; Start 10/10/16 at 17:00; Stop 10/11/16 at 10:14; Status DC Potassium Chloride (KCl Premix 10meq) 100 ml @ 100 mls/hr Q1H IV Last administered on 10/11/16 13:32; Start 10/11/16 at 11:00; Stop 10/11/16 at 12:59 ; Status DC Potassium Chloride (KCl Oral Soln) 40 meq 1X ONCE PO Last administered on 10/11 11:47; Start 10/11/16 at 10:15; Stop 10/11/16 at 10:19; Status DC Cefpodoxime Proxetil (Vantin) 200 mg BID PO ; Start 10/11/16 at 21:00 Active Scripts Active Reported Xanax (Alprazolam) 0.25 Mg Tablet 0.25 Mg PO Q6-8HRS PRN Vitamin E (Vitamin E Acetate) 200 Unit Capsule 200 Unit PO DAILY Simvastatin 40 Mg Tablet 40 Mg PO HS Zoloft (Sertraline Hcl) 50 Mg Tablet 50 Mg PO DAILY Seroquel (Quetiapine Fumarate) 25 Mg Tablet 12.5 Mg PO HS Pantoprazole Sodium 40 Mg Tablet.dr 40 Mg PO DAILY Miralax (Polyethylene Glycol 3350) 119 Gm Powder 17 Gm PO DAILY Lisinopril 20 Mg Tablet 20 Mg PO DAILY Hydrochlorothiazide Tablet (Hydrochlorothiazide) 12.5 Mg Tablet 1 Tab PO DAILY Mucinex (Guaifenesin) 600 Mg Tablet.er 600 Mg PO Vitamin D2 (Ergocalciferol (Vitamin D2)) 50,000 Unit Capsule 1 Cap PO WEEKLY PRN Doxycycline Hyclate 100 Mg Tablet 100 Mg PO BID Colace (Docusate Sodium) 100 Mg Capsule 1 Cap PO BID PRN Calcium 600 + Vit D 400 Softgl (Calcium Carbonate/Vitamin D3) 1 Each Capsule 0.5 Each PO DAILY Aspirin 81 Mg Tab.chew 81 Mg PO DAILY Albuterol Sulfate Neb Soln (Albuterol Sulfate) 1.25 Mg/3 Ml Vial.neb 1 Vial NEB Q6HRS Acidophilus Capsule (L. Acidophilus/Pectin, Sharkey) 1 Each Capsule 2 Each PO AFTRNOON Vitals/I & O Vital Sign - Last 24 Hours 10/10/16 10/10/16 10/10/16 10/10/16 19:00 19:18 20:00 23:00 Temp 97.4 98.3 97.4 98.3 Pulse 87 82 Resp 16 16 B/P 105/60 96/49 Pulse Ox 99 99 99 O2 Delivery Nasal Cannula Nasal Cannula Nasal Cannula Nasal Cannula O2 Flow Rate 2.0 2.0 1.0 2.0 10/11/16 10/11/16 10/11/16 10/11/16 03:00 07:00 07:35 08:00 Temp 98.2 98.2 98.2 98.2 Pulse 82 95 Resp 16 18 B/P 100/60 151/89 Pulse Ox 99 94 98 O2 Delivery Room Air Nasal Cannula Nasal Cannula Nasal Cannula O2 Flow Rate 2.0 2.0 2.0 10/11/16 10/11/16 10/11/16 10/11/16 09:13 11:05 11:15 14:52 Temp 98.0 97.8 98.0 97.8 Pulse 82 102 105 Resp 22 24 B/P 100/60 140/76 158/86 Pulse Ox 94 94 90 O2 Delivery Nasal Cannula Nasal Cannula Nasal Cannula O2 Flow Rate 2.0 2.0 2.0 10/11/16 15:15 O2 Delivery Room Air Intake and Output 10/10/16 10/10/16 10/11/16 15:00 23:00 07:00 Intake Total 140 ml 0 ml Balance 140 ml 0 ml DANDRE WHEELER MD Oct 11, 2016 15:45
--- NOTE | 2016-10-11 16:58 | CONS ---
DATE OF CONSULTATION: 10/10/2016 PATIENT ROOM: 550. REQUESTING PHYSICIAN: Dr. Pena. REASON FOR CONSULTATION: Skin wound, UTI and diarrhea. HISTORY OF PRESENT ILLNESS: The patient is an 86-year-old female who suffers from severe Alzheimer's and lives in an Alzheimer's unit. Apparently, she has had a skin tear on her right arm for several months. The daughter states initially it was very large and red, swollen, but has improved over the past several months. They reported some pustular areas and she had been taking doxycycline for several days. She developed increased confusion and lethargy and was brought to [facility] on the , found to have white count 19.3 with 5 bands, 88 segs. Creatinine was at 1.0. She underwent a CT scan of her head, did not show any acute process, but did show that she had a OUTBOARD [employer]OR[employer] OPER[employer] shunt had some mucosal thickening. Chest x-ray had no acute findings. She was placed on Zosyn and I was consulted. Given her age and risks, I added vancomycin to cover potential resistant Enterococcus. The patient is lying in bed, states she is feeling well. She denies all other review of systems, although her daughter states she has continued to have some loose stool and does have some cough. PAST MEDICAL HISTORY: Positive for Alzheimer's dementia, history of hypertension. Also, right upper extremity arm wound. 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 REVIEW OF SYSTEMS: Otherwise negative except for mentioned above. ALLERGIES: LISTED TO PSEUDOEPHEDRINE AND TRIPOLIDINE. SOCIAL HISTORY: Again, lives in Alzheimer's unit. She is a nonsmoker. FAMILY HISTORY: Noncontributory secondary to her age. CURRENT MEDICATIONS: Include vancomycin, Zosyn, aspirin, Pulmicort, Colace p.r.n., Mucinex, Protonix, Zocor, Zoloft. Other meds are available and reviewed in the chart. PHYSICAL EXAMINATION: VITAL SIGNS: She has been afebrile, temperature is 97.4, pulse 103, respirations 18, blood pressure 176/90, satting 90% on 2 liters. CONSTITUTIONAL: She is lying in bed. She is cooperative. She is in no acute distress tries shut. HEENT: Oral cavity, oropharynx is clear. NECK: Without JVD. LUNGS: Clear to auscultation. HEART: S1, S2. ABDOMEN: Soft, nontender, nondistended, positive bowel sounds. EXTREMITIES: Without clubbing, cyanosis or gross edema. She has a small skin tear that is healing well on her right elbow approximately 1.5 cm x 0.5 cm width. She has some contractures. SKIN: Warm to touch without signs of rash. NEUROLOGIC: She answers questions very pleasant. Affect was pleasant. LABORATORY DATA: White count 10.1, hemoglobin 9, platelets of 197, neutrophils 75, lymphs 13. Glucose 108. Creatinine of 1. Normal liver function study tests. Urinalysis consistent with urinary tract infection. Blood culture negative at 1 day. IMPRESSION: 1. Urinary tract infection present on admission. 2. Leukocytosis. 3. Elbow wound appears to be clean. 4. Diarrhea for two to 3 weeks with her daughter states she has been on MiraLax and Colace. 5. Dementia. RECOMMENDATIONS: For now, we will continue vancomycin and Zosyn. We will follow up on labs and cultures and C. diff test has been ordered to continue local wound care. This was discussed with the daughter. Thank you for allowing me to participate in the patient's care. If you have any questions, please do not hesitate to contact me. TERRY SEAY MD DR: SAEID/kelli JOB#: [id number] / [id number]
[2016-10-11] MEDS: ENOXAPARIN 40 MG/0.4 ML DISP.SYRIN. SQ SCH (17:45)
[2016-10-11 19:00] VITALS: BP 135/67
[2016-10-11] MEDS: CEFPODOXIME PROXETIL 100 MG TABLET PO SCH (20:19)
[2016-10-11] MEDS: SIMVASTATIN 40 MG TABLET. PO SCH (20:19)
[2016-10-11] MEDS: QUEtiapine 25 MG TABLET. PO SCH (20:20)
[2016-10-11 23:00] VITALS: BP 142/73
[2016-10-12] MEDS: IV NORMAL SALINE 1000ML BAG 1,000 ML IV SCH ×2 (02:48→15:37)
[2016-10-12 03:00] VITALS: BP 146/73
[2016-10-12] MEDS: ALBUTEROL SULFATE 2.5 MG/3 ML NEBU. NEB PRN (03:35)
[2016-10-12] MEDS: IPRATRPIUM/ALBUTEROL 0.5/2.5MG 3 ML NEBU. NEB SCH ×4 (07:02→20:25)
[2016-10-12] MEDS: BUDESONIDE 0.5 MG/2 ML NEBU NEB SCH ×2 (07:03→20:25)
[2016-10-12] MEDS: ASPIRIN 81 MG TAB.CHEW PO SCH (07:50)
[2016-10-12] MEDS: SERTRALINE 50 MG TABLET. PO SCH (07:50)
[2016-10-12] MEDS: CEFPODOXIME PROXETIL 100 MG TABLET PO SCH ×2 (07:50→20:11)
[2016-10-12] MEDS: CALCIUM CARB/VIT D3 500/200 TABLET PO SCH (07:50)
[2016-10-12] MEDS: PANTOPRAZOLE 40 MG TABLET. PO SCH (07:50)
[2016-10-12] MEDS: POTASSIUM CHLORIDE 20 MEQ/15 ML ORAL LIQUID. PEG SCH (07:51)
[2016-10-12] MEDS: POLYETHYLENE GLYCOL 3350 17 GM PACKET. PO SCH (07:51)
[2016-10-12] MEDS: LISINOPRIL 20 MG TABLET PO SCH (07:51)
[2016-10-12 08:11] VITALS: BP 160/91
[2016-10-12 11:00] VITALS: BP 155/82
--- NOTE | 2016-10-12 11:21 | PDOC ---
PROGRESS NOTES Chief Complaint Chief Complaint 1. Sepsis 2. UTI 3. Diarrhea, 4. Dementia, now improved near baseline 5. Weakness, acquired 6. Hypokalemia 7. Moderate malnutrition History of Present Illness History of Present Illness Patient laying down in bed watching TV during AM evaluation. Family member present and at bedside. Continued decrease in appetite and PO intake. Breakfast about 25% eaten. All questions and concerns addressed and answered. Vitals Vitals Vital Signs Date Time Temp Pulse Resp B/P Pulse Ox O2 Delivery O2 Flow Rate FiO2 10/12/16 11:12 95 Nasal Cannula 2.0 10/12/16 08:11 98.1 95 26 160/91 98.1 Physical Exam Physical Exam appears much improved to family, more alert, able to feed herself General: Alert, Cooperative, No acute distress, Other (not oriented, more lethargic than baseline) Heart: Regular rate, Normal S1, Normal S2, No murmurs Lungs: Clear Abdomen: Normal bowel sounds, Soft Extremities: No clubbing, No cyanosis, No edema, Normal pulses Skin: No rashes, No breakdown, No significant lesion Review of Systems Review of Systems Patient complaint of fatigue Patient complaint of hunger Assessment and Plan Assessmemt and Plan Problems Medical Problems: (1) Hypokalemia Status: Acute (2) Sepsis Status: Acute (3) Wound healing, delayed Status: Acute Assessment: 1. Sepsis 2. UTI 3. Diarrhea, 4. Dementia, now improved near baseline 5. Weakness, acquired 6. Hypokalemia 7. Moderate malnutrition Plan: Continue to monitor the patient per floor protocol Continue gentle IVF hydration NS at 75 cc/hr Continue PO Abx- Vantin Encourage PO intake for nutrition Daily labs and PTOT VIN RN SNU evaluation Speech therapy consult Problems: Comment Review of Relevant I have reviewed the following items qasim (where applicable) has been applied. Labs Laboratory Tests Test 10/10/16 14:00 10/11/16 08:35 Clostridium difficile Toxin (PCR) Negative (Negative) Sodium Level 145mmol/L (136-145) Potassium Level 3.1mmol/L (3.5-5.1) Chloride Level 110mmol/L (98-107) Carbon Dioxide Level 23mmol/L (21-32) Anion Gap 12 (6-14) Blood Urea Nitrogen 17mg/dL (7-20) Creatinine 0.8mg/dL (0.6-1.0) Estimated GFR (Cockcroft-Gault) 67.8 BUN/Creatinine Ratio 21 (6-20) Glucose Level 118mg/dL (70-99) Calcium Level 8.3mg/dL (8.5-10.1) Total Bilirubin 0.5mg/dL (0.2-1.0) Aspartate Amino Transf (AST/SGOT) 26U/L (15-37) Alanine Aminotransferase (ALT/SGPT) 17U/L (14-59) Alkaline Phosphatase 86U/L (46-116) Total Protein 5.5g/dL (6.4-8.2) Albumin 2.1g/dL (3.4-5.0) Albumin/Globulin Ratio 0.6 (1.0-1.7) Microbiology 10/10/16 Blood Culture - Preliminary, Resulted NO GROWTH AFTER 1 DAY 10/09/16 Urine Culture - Final, Complete 10/09/16 Urine Culture Result 1 (ROSSY) - Final, Complete 10/09/16 Antimicrobic Susceptibility - Final, Complete Medications Current Medications Potassium Chloride 40 meq 40 meq 1X ONCE PO ; Start 10/09/16 at 13:15; Stop 10/09 at 17:19; Status DC Ceftriaxone Sodium (Rocephin 1gm Ivpb For Omni) 50 ml @ 100 mls/hr 1X ONCE IV ; Start 10/09/16 at 13:15; Stop 10/09/16 at 13:44; Status Cancel Ondansetron HCl 4 mg 4 mg PRN Q8HRS PRN IV NAUSEA/VOMITING; Start 10/09/16 at 13 :15; Stop 10/10/16 at 13:14; Status DC Sodium Chloride (Iv Sodium Chloride 0.9% 1000ml Bag) 1,000 ml @ 150 mls/hr Q6H40M IV Last administered on 10/10/16t 08:00; Start 10/09/16 at 13:15; Stop 10/10/16 at 13:14; Status DC Acetaminophen (Tylenol) 650 mg PRN Q4HRS PRN PO FEVER; Start 10/09/16 at 13:15; Stop 10/10/16 at 13:14; Status DC Albuterol/ Ipratropium 3 ml 3 ml RTQID NEB Last administered on 10/10/16t 15:36 ; Start 10/09/16 at 16:00; Stop 10/10/16 at 15:59; Status DC Potassium Chloride/Sodium Chloride (KCl 20 Meq-NS 1,000 ml Iv Soln) 1,000 ml @ 75 mls/hr 1X ONCE IV Last administered on 10/09/16 13:55; Start 10/09/16 at 13: 15; Stop 10/10/16 at 02:34; Status DC Piperacillin Sod/ Tazobactam Sod 1 each 1 each PRN DAILY PRN MC SEE COMMENTS; Start 10/09/16 at 13:30; Stop 10/10/16 at 13:56; Status DC Piperacillin Sod/ Tazobactam Sod 3.375 gm/Sodium Chloride 50 ml @ 100 mls/hr ONCE ONCE IV Last administered on 10/09/16 13:56; Start 10/09/16 at 13:45; Stop 10/09/16 at 14:14; Status DC Sodium Chloride 1,000 ml @ 1,000 mls/hr 1X ONCE IV Last administered on 13:54; Start 10/09/16 at 13:45; Stop 10/09/16 at 14:44; Status DC Piperacillin Sod/ Tazobactam Sod/ Sodium Chloride (Zosyn/Iv Sodium Chloride 0.9 % 50ml) 50 ml @ 100 mls/hr Q6HRS IV Last administered on 10/11/16 11:48; Start 10/09/16 at 19:00; Stop 10/11/16 at 14:06; Status DC Potassium Chloride (Klor-Con) 20 meq DAILYWBKFT PO ; Start 10/10/16 at 08:00; Stop 10/10/16 at 08:23; Status DC Potassium Chloride 40 meq 40 meq 1X ONCE PO ; Start 10/09/16 at 15:30; Stop 10/09 at 15:31; Status DC Magnesium Sulfate/ Dextrose (Magnesium Sulfate PREMIX 2GM) 50 ml @ 25 mls/hr 1X ONCE IV Last administered on 10/09/16 17:09; Start 10/09/16 at 15:30; Stop 10/09/16 at 17:29; Status DC Enoxaparin Sodium (Lovenox Per Pharmacy Prophylaxis Dosing) 1 each PRN DAILY PRN MC SEE COMMENTS; Start 10/09/16 at 15:45; Stop 10/10/16 at 13:48; Status DC Budesonide (Pulmicort) 0.5 mg RTBID NEB Last administered on 10/12/16 07:03; Start 10/09/16 at 20:00 Vancomycin HCl (Vanco Per Pharmacy) 1 each PRN DAILY PRN MC SEE COMMENTS Last administered on 10/10/16 14:00; Start 10/09/16 at 17:00; Stop 10/11/16 at 14:06; Status DC Enoxaparin Sodium 40 mg 40 mg Q24H SQ Last administered on 10/11/16 17:45; Start 10/09/16 at 17:00 Vancomycin HCl 1.5 gm/Sodium Chloride 500 ml @ 250 mls/hr 1X ONCE IV Last administered on 10/09/16 19:54; Start 10/09/16 at 18:00; Stop 10/09/16 at 19:59; Status DC Vancomycin HCl/ Sodium Chloride (Iv Sodium Chloride 0.9% 250ml) 250 ml @ 250 mls/hr Q24H IV Last administered on 10/10/16 19:15; Start 10/10/16 at 18:00; Stop 10/11/16 at 14:19; Status DC Vancomycin HCl 1 each 1X ONCE MC ; Start 10/11/16 at 17:30; Stop 10/11/16 at 17 :30; Status DC Potassium Chloride (KCl Oral Soln) 40 meq 1X ONCE PEG Last administered on 10/09 18:08; Start 10/09/16 at 17:30; Stop 10/09/16 at 17:31; Status DC Alprazolam (Xanax) 0.25 mg Q6HRS PRN PO ANXIETY / AGITATION Last administered on 10/11/16 13:31; Start 10/09/16 at 17:30 Aspirin (Children'S Aspirin) 81 mg DAILYWBKFT PO Last administered on 07:50; Start 10/10/16 at 08:00 Docusate Sodium (Colace) 100 mg BID PRN PO CONSTIPATION; Start 10/09/16 at 17:30 Guaifenesin (Mucinex) 600 mg BID PRN PO cough; Start 10/09/16 at 17:30 Lisinopril (Prinivil) 20 mg DAILY PO Last administered on 10/12/16 07:51; Start 10/10/16 at 09:00 Pantoprazole Sodium (Protonix) 40 mg DAILYAC PO Last administered on 10/12/16 07:50; Start 10/10/16 at 07:30 Polyethylene Glycol (miraLAX PACKET) 17 gm DAILY PO ; Start 10/10/16 at 09:00 Quetiapine Fumarate (SEROquel) 12.5 mg HS PO Last administered on 10/11/16 20: 20; Start 10/09/16 at 21:00 Sertraline HCl (Zoloft) 50 mg DAILY PO Last administered on 10/12/16 07:50; Start 10/10/16 at 09:00 Simvastatin (Zocor) 40 mg HS PO Last administered on 10/11/16 20:19; Start 10/09/16 at 21:00 Non-Formulary Medication 1 vial Q6HRS NEB ; Start 10/09/16 at 18:00; Status UNV Calcium/Vitamin D (Oscal D 500mg/ 200uts) 1 tab DAILYWBKFT PO Last administered on 10/12/16 07:50; Start 10/10/16 at 08:00 Albuterol Sulfate (Ventolin Neb Soln) 2.5 mg PRN Q6HRS PRN NEB SHORTNESS OF BREATH Last administered on 10/12/16 03:35; Start 10/09/16 at 17:45 Potassium Chloride 20 meq 20 meq DAILY08 PEG Last administered on 10/12/16 07: 51; Start 10/10/16 at 09:00 Potassium Chloride (KCl Premix 10meq) 100 ml @ 100 mls/hr Q1H IV Last administered on 10/10/16 10:58; Start 10/10/16 at 09:00; Stop 10/10/16 at 10:59; Status DC Potassium Chloride 40 meq 40 meq 1X ONCE PO Last administered on 10/10/16 08: 54; Start 10/10/16 at 08:30; Stop 10/10/16 at 08:31; Status DC Sodium Chloride (Iv Sodium Chloride 0.9% 1000ml Bag) 1,000 ml @ 75 mls/hr [id number] IV Last administered on 10/12/16 02:48; Start 10/10/16 at 13:00 Acetaminophen (Tylenol) 650 mg 1X ONCE PO Last administered on 10/10/16 14:25 ; Start 10/10/16 at 14:30; Stop 10/10/16 at 14:31; Status DC Potassium Chloride (KCl Oral Soln) 40 meq 1X ONCE PO ; Start 10/10/16 at 14:30; Stop 10/10/16 at 14:31; Status DC Albuterol/ Ipratropium 3 ml 3 ml RTQID NEB Last administered on 10/12/16 11:12 ; Start 10/10/16 at 16:00 Potassium Chloride 100 ml @ 100 mls/hr Q1H IV Last administered on 10/10/16 22 :16; Start 10/10/16 at 17:00; Stop 10/10/16 at 18:59; Status DC Metronidazole 100 ml @ 100 mls/hr Q8HRS IV Last administered on 10/11/16 05: 15; Start 10/10/16 at 17:00; Stop 10/11/16 at 10:14; Status DC Potassium Chloride (KCl Premix 10meq) 100 ml @ 100 mls/hr Q1H IV Last administered on 10/11/16 13:32; Start 10/11/16 at 11:00; Stop 10/11/16 at 12:59 ; Status DC Potassium Chloride (KCl Oral Soln) 40 meq 1X ONCE PO Last administered on 10/11 11:47; Start 10/11/16 at 10:15; Stop 10/11/16 at 10:19; Status DC Cefpodoxime Proxetil 200 mg 200 mg BID PO Last administered on 10/12/16 07:50 ; Start 10/11/16 at 21:00 Magnesium Sulfate/ Dextrose (Magnesium Sulfate PREMIX 2GM) 50 ml @ 25 mls/hr 1X ONCE IV Last administered on 10/11/16 16:16; Start 10/11/16 at 15:45; Stop 10/11/16 at 17:44; Status DC Active Scripts Active Reported Xanax (Alprazolam) 0.25 Mg Tablet 0.25 Mg PO Q6-8HRS PRN Vitamin E (Vitamin E Acetate) 200 Unit Capsule 200 Unit PO DAILY Simvastatin 40 Mg Tablet 40 Mg PO HS Zoloft (Sertraline Hcl) 50 Mg Tablet 50 Mg PO DAILY Seroquel (Quetiapine Fumarate) 25 Mg Tablet 12.5 Mg PO HS Pantoprazole Sodium 40 Mg Tablet.dr 40 Mg PO DAILY Miralax (Polyethylene Glycol 3350) 119 Gm Powder 17 Gm PO DAILY Lisinopril 20 Mg Tablet 20 Mg PO DAILY Hydrochlorothiazide Tablet (Hydrochlorothiazide) 12.5 Mg Tablet 1 Tab PO DAILY Mucinex (Guaifenesin) 600 Mg Tablet.er 600 Mg PO Vitamin D2 (Ergocalciferol (Vitamin D2)) 50,000 Unit Capsule 1 Cap PO WEEKLY PRN Doxycycline Hyclate 100 Mg Tablet 100 Mg PO BID Colace (Docusate Sodium) 100 Mg Capsule 1 Cap PO BID PRN Calcium 600 + Vit D 400 Softgl (Calcium Carbonate/Vitamin D3) 1 Each Capsule 0.5 Each PO DAILY Aspirin 81 Mg Tab.chew 81 Mg PO DAILY Albuterol Sulfate Neb Soln (Albuterol Sulfate) 1.25 Mg/3 Ml Vial.neb 1 Vial NEB Q6HRS Acidophilus Capsule (L. Acidophilus/Pectin, [place]) 1 Each Capsule 2 Each PO AFTRNOON Vitals/I & O Vital Sign - Last 24 Hours 10/11/16 10/11/16 10/11/16 10/11/16 14:52 15:15 18:09 19:00 Temp 97.8 99.2 97.8 99.2 Pulse 105 99 Resp 24 20 B/P 158/86 135/67 Pulse Ox 90 92 O2 Delivery Nasal Cannula Room Air Room Air Nasal Cannula O2 Flow Rate 2.0 2.0 10/11/16 10/11/16 10/12/16 10/12/16 20:00 23:00 03:00 03:37 Temp 97.9 98.9 97.9 98.9 Pulse 94 85 Resp 18 18 B/P 142/73 146/73 Pulse Ox 98 98 O2 Delivery Nasal Cannula Nasal Cannula Nasal Cannula Room Air O2 Flow Rate 1.0 2.0 2.0 10/12/16 10/12/16 10/12/16 10/12/16 07:03 07:39 07:51 08:11 Temp 98.1 98.1 Pulse 85 95 Resp 26 B/P 146/73 160/91 Pulse Ox 96 95 O2 Delivery Nasal Cannula Nasal Cannula Nasal Cannula O2 Flow Rate 2.0 2.0 2.0 10/12/16 11:12 Pulse Ox 95 O2 Delivery Nasal Cannula O2 Flow Rate 2.0 Intake and Output 10/11/16 10/11/16 10/12/16 15:00 23:00 07:00 Intake Total 1140 ml 840 ml Balance 1140 ml 840 ml STU MAGANA III DO Oct 12, 2016 11:20
[2016-10-12 15:15] VITALS: BP 126/61
[2016-10-12] MEDS: ENOXAPARIN 40 MG/0.4 ML DISP.SYRIN. SQ SCH (17:13)
[2016-10-12 19:00] VITALS: BP 193/106
[2016-10-12] MEDS: SIMVASTATIN 40 MG TABLET. PO SCH (20:10)
[2016-10-12] MEDS: QUEtiapine 25 MG TABLET. PO SCH (20:10)
[2016-10-12 23:00] VITALS: BP 160/91
[2016-10-13] VITALS (9 sets, daily range): BP systolic 101–215; BP diastolic 48–135
[2016-10-13] MEDS: ALBUTEROL SULFATE 2.5 MG/3 ML NEBU. NEB PRN (02:59)
[2016-10-13] MEDS: IV NORMAL SALINE 1000ML BAG 1,000 ML IV SCH ×2 (05:58→18:37)
[2016-10-13] MEDS: IPRATRPIUM/ALBUTEROL 0.5/2.5MG 3 ML NEBU. NEB SCH ×4 (07:10→18:26)
[2016-10-13] MEDS: BUDESONIDE 0.5 MG/2 ML NEBU NEB SCH ×2 (07:11→18:26)
[2016-10-13] MEDS: AMLODIPINE BESYLATE 10 MG TABLET PO SCH (09:00)
[2016-10-13] MEDS: POLYETHYLENE GLYCOL 3350 17 GM PACKET. PO SCH (09:00)
[2016-10-13] MEDS: CEFPODOXIME PROXETIL 100 MG TABLET PO SCH ×2 (09:11→20:13)
[2016-10-13] MEDS: LISINOPRIL 20 MG TABLET PO SCH (09:12)
[2016-10-13] MEDS: PANTOPRAZOLE 40 MG TABLET. PO SCH (09:13)
[2016-10-13] MEDS: POTASSIUM CHLORIDE 20 MEQ/15 ML ORAL LIQUID. PEG SCH (09:13)
[2016-10-13] MEDS: ASPIRIN 81 MG TAB.CHEW PO SCH (09:13)
[2016-10-13] MEDS: CALCIUM CARB/VIT D3 500/200 TABLET PO SCH (09:13)
[2016-10-13] MEDS: SERTRALINE 50 MG TABLET. PO SCH (09:14)
--- NOTE | 2016-10-13 13:34 | PDOC ---
PROGRESS NOTES Chief Complaint Chief Complaint 1. Sepsis 2. UTI 3. Diarrhea, 4. Dementia, now improved near baseline 5. Weakness, acquired 6. Hypokalemia 7. Moderate malnutrition History of Present Illness History of Present Illness Patient doing well today upon arrival to her room. She states that her appetite has increased some today and has been feeling better. Daughter in room with pt states that ST says pt can have "mechanical diet" and has been doing well with eating. Daughter also state plan is for pt to return to [facility] on discharge. All questions and concerns addressed and answered. Vitals Vitals Vital Signs Date Time Temp Pulse Resp B/P Pulse Ox O2 Delivery O2 Flow Rate FiO2 10/13/16 11:20 Nasal Cannula 2.0 10/13/16 09:12 86 101/76 10/13/16 07:12 98 10/13/16 07:00 98.2 22 98.2 Physical Exam Physical Exam Continued improvement today, feeding herself while in room General: Alert, Cooperative, No acute distress, Other (not oriented, more lethargic than baseline) Heart: Regular rate, No murmurs Lungs: Clear, Other (no wheezes or crackles heard) Abdomen: Normal bowel sounds, Soft, No tenderness Extremities: No cyanosis, No edema Skin: No rashes, No breakdown Review of Systems Review of Systems Complaining of hunger Complaining of weakness All other ROS negative Assessment and Plan Assessmemt and Plan Problems Medical Problems: (1) Hypokalemia Status: Acute (2) Sepsis Status: Acute (3) Wound healing, delayed Status: Acute 1. Sepsis 2. UTI 3. Diarrhea, 4. Dementia, now improved near baseline 5. Weakness, acquired 6. Hypokalemia 7. Moderate malnutrition Plan: -Continue to monitor the patient per floor protocol -Continue gentle IVF hydration NS at 75 cc/hr -ID Consult- appreciate recommendations - Plan is to continue PO Cefpodoxime on Day 3 of 5 -Continue to Encourage PO intake for nutrition -Daily labs and PTOT continued tomorrow -ST Consult placed- Daughter states ST recommended Mechanical Diet- No note at this time -DW Healthcare Team/Family- Plan is to go back to [facility] upon discharge; Facility will set-up services for pt Disposition: Discharge tomorrow to [facility] if continued improvement Problems: Comment Review of Relevant I have reviewed the following items qasim (where applicable) has been applied. Labs Microbiology 10/10/16 Blood Culture - Preliminary, Resulted NO GROWTH AFTER 2 DAYS 10/09/16 Urine Culture - Final, Complete 10/09/16 Urine Culture Result 1 (ROSSY) - Final, Complete 10/09/16 Antimicrobic Susceptibility - Final, Complete Medications Current Medications Potassium Chloride 40 meq 40 meq 1X ONCE PO ; Start 10/09/16 at 13:15; Stop 10/09 at 17:19; Status DC Ceftriaxone Sodium (Rocephin 1gm Ivpb For Omni) 50 ml @ 100 mls/hr 1X ONCE IV ; Start 10/09/16 at 13:15; Stop 10/09/16 at 13:44; Status Cancel Ondansetron HCl 4 mg 4 mg PRN Q8HRS PRN IV NAUSEA/VOMITING; Start 10/09/16 at 13 :15; Stop 10/10/16 at 13:14; Status DC Sodium Chloride (Iv Sodium Chloride 0.9% 1000ml Bag) 1,000 ml @ 150 mls/hr Q6H40M IV Last administered on 10/10/16 08:00; Start 10/09/16 at 13:15; Stop 10/10/16 at 13:14; Status DC Acetaminophen (Tylenol) 650 mg PRN Q4HRS PRN PO FEVER; Start 10/09/16 at 13:15; Stop 10/10/16 at 13:14; Status DC Albuterol/ Ipratropium 3 ml 3 ml RTQID NEB Last administered on 10/10/16 15:36 ; Start 10/09/16 at 16:00; Stop 10/10/16 at 15:59; Status DC Potassium Chloride/Sodium Chloride (KCl 20 Meq-NS 1,000 ml Iv Soln) 1,000 ml @ 75 mls/hr 1X ONCE IV Last administered on 10/09/16 13:55; Start 10/09/16 at 13: 15; Stop 10/10/16 at 02:34; Status DC Piperacillin Sod/ Tazobactam Sod 1 each 1 each PRN DAILY PRN MC SEE COMMENTS; Start 10/09/16 at 13:30; Stop 10/10/16 at 13:56; Status DC Piperacillin Sod/ Tazobactam Sod 3.375 gm/Sodium Chloride 50 ml @ 100 mls/hr ONCE ONCE IV Last administered on 10/09/16 13:56; Start 10/09/16 at 13:45; Stop 10/09/16 at 14:14; Status DC Sodium Chloride 1,000 ml @ 1,000 mls/hr 1X ONCE IV Last administered on 13:54; Start 10/09/16 at 13:45; Stop 10/09/16 at 14:44; Status DC Piperacillin Sod/ Tazobactam Sod/ Sodium Chloride (Zosyn/Iv Sodium Chloride 0.9 % 50ml) 50 ml @ 100 mls/hr Q6HRS IV Last administered on 10/11/16 11:48; Start 10/09/16 at 19:00; Stop 10/11/16 at 14:06; Status DC Potassium Chloride (Klor-Con) 20 meq DAILYWBKFT PO ; Start 10/10/16 at 08:00; Stop 10/10/16 at 08:23; Status DC Potassium Chloride 40 meq 40 meq 1X ONCE PO ; Start 10/09/16 at 15:30; Stop 10/09 at 15:31; Status DC Magnesium Sulfate/ Dextrose (Magnesium Sulfate PREMIX 2GM) 50 ml @ 25 mls/hr 1X ONCE IV Last administered on 10/09/16 17:09; Start 10/09/16 at 15:30; Stop 10/09/16 at 17:29; Status DC Enoxaparin Sodium (Lovenox Per Pharmacy Prophylaxis Dosing) 1 each PRN DAILY PRN MC SEE COMMENTS; Start 10/09/16 at 15:45; Stop 10/10/16 at 13:48; Status DC Budesonide (Pulmicort) 0.5 mg RTBID NEB Last administered on 10/13/16 07:11; Start 10/09/16 at 20:00 Vancomycin HCl (Vanco Per Pharmacy) 1 each PRN DAILY PRN MC SEE COMMENTS Last administered on 10/10/16 14:00; Start 10/09/16 at 17:00; Stop 10/11/16 at 14:06; Status DC Enoxaparin Sodium 40 mg 40 mg Q24H SQ Last administered on 10/12/16 17:13; Start 10/09/16 at 17:00 Vancomycin HCl 1.5 gm/Sodium Chloride 500 ml @ 250 mls/hr 1X ONCE IV Last administered on 10/09/16 19:54; Start 10/09/16 at 18:00; Stop 10/09/16 at 19:59; Status DC Vancomycin HCl/ Sodium Chloride (Iv Sodium Chloride 0.9% 250ml) 250 ml @ 250 mls/hr Q24H IV Last administered on 10/10/16 19:15; Start 10/10/16 at 18:00; Stop 10/11/16 at 14:19; Status DC Vancomycin HCl 1 each 1X ONCE MC ; Start 10/11/16 at 17:30; Stop 10/11/16 at 17 :30; Status DC Potassium Chloride (KCl Oral Soln) 40 meq 1X ONCE PEG Last administered on 10/09 18:08; Start 10/09/16 at 17:30; Stop 10/09/16 at 17:31; Status DC Alprazolam (Xanax) 0.25 mg Q6HRS PRN PO ANXIETY / AGITATION Last administered on 10/11/16 13:31; Start 10/09/16 at 17:30 Aspirin (Children'S Aspirin) 81 mg DAILYWBKFT PO Last administered on 09:13; Start 10/10/16 at 08:00 Docusate Sodium (Colace) 100 mg BID PRN PO CONSTIPATION; Start 10/09/16 at 17:30 Guaifenesin (Mucinex) 600 mg BID PRN PO cough; Start 10/09/16 at 17:30 Lisinopril (Prinivil) 20 mg DAILY PO Last administered on 10/13/16 09:12; Start 10/10/16 at 09:00 Pantoprazole Sodium (Protonix) 40 mg DAILYAC PO Last administered on 10/13/16 09:13; Start 10/10/16 at 07:30 Polyethylene Glycol (miraLAX PACKET) 17 gm DAILY PO ; Start 10/10/16 at 09:00 Quetiapine Fumarate (SEROquel) 12.5 mg HS PO Last administered on 10/12/16 20: 10; Start 10/09/16 at 21:00 Sertraline HCl (Zoloft) 50 mg DAILY PO Last administered on 10/13/16 09:14; Start 10/10/16 at 09:00 Simvastatin (Zocor) 40 mg HS PO Last administered on 10/12/16 20:10; Start 10/09/16 at 21:00 Non-Formulary Medication 1 vial Q6HRS NEB ; Start 10/09/16 at 18:00; Status UNV Calcium/Vitamin D (Oscal D 500mg/ 200uts) 1 tab DAILYWBKFT PO Last administered on 10/13/16 09:13; Start 10/10/16 at 08:00 Albuterol Sulfate (Ventolin Neb Soln) 2.5 mg PRN Q6HRS PRN NEB SHORTNESS OF BREATH Last administered on 10/13/16 02:59; Start 10/09/16 at 17:45 Potassium Chloride 20 meq 20 meq DAILY08 PEG Last administered on 10/13/16 09: 13; Start 10/10/16 at 09:00 Potassium Chloride (KCl Premix 10meq) 100 ml @ 100 mls/hr Q1H IV Last administered on 10/10/16 10:58; Start 10/10/16 at 09:00; Stop 10/10/16 at 10:59; Status DC Potassium Chloride 40 meq 40 meq 1X ONCE PO Last administered on 10/10/16 08: 54; Start 10/10/16 at 08:30; Stop 10/10/16 at 08:31; Status DC Sodium Chloride (Iv Sodium Chloride 0.9% 1000ml Bag) 1,000 ml @ 75 mls/hr [id number] IV Last administered on 10/13/16 05:58; Start 10/10/16 at 13:00 Acetaminophen (Tylenol) 650 mg 1X ONCE PO Last administered on 10/10/16 14:25 ; Start 10/10/16 at 14:30; Stop 10/10/16 at 14:31; Status DC Potassium Chloride (KCl Oral Soln) 40 meq 1X ONCE PO ; Start 10/10/16 at 14:30; Stop 10/10/16 at 14:31; Status DC Albuterol/ Ipratropium 3 ml 3 ml RTQID NEB Last administered on 10/13/16 11:19 ; Start 10/10/16 at 16:00 Potassium Chloride 100 ml @ 100 mls/hr Q1H IV Last administered on 10/10/16 22 :16; Start 10/10/16 at 17:00; Stop 10/10/16 at 18:59; Status DC Metronidazole 100 ml @ 100 mls/hr Q8HRS IV Last administered on 10/11/16 05: 15; Start 10/10/16 at 17:00; Stop 10/11/16 at 10:14; Status DC Potassium Chloride (KCl Premix 10meq) 100 ml @ 100 mls/hr Q1H IV Last administered on 10/11/16 13:32; Start 10/11/16 at 11:00; Stop 10/11/16 at 12:59 ; Status DC Potassium Chloride (KCl Oral Soln) 40 meq 1X ONCE PO Last administered on 10/11 11:47; Start 10/11/16 at 10:15; Stop 10/11/16 at 10:19; Status DC Cefpodoxime Proxetil 200 mg 200 mg BID PO Last administered on 10/13/16 09:11 ; Start 10/11/16 at 21:00 Magnesium Sulfate/ Dextrose (Magnesium Sulfate PREMIX 2GM) 50 ml @ 25 mls/hr 1X ONCE IV Last administered on 10/11/16 16:16; Start 10/11/16 at 15:45; Stop 10/11/16 at 17:44; Status DC Amlodipine Besylate (Norvasc) 10 mg DAILY PO ; Start 10/13/16 at 09:00 Active Scripts Active Reported Xanax (Alprazolam) 0.25 Mg Tablet 0.25 Mg PO Q6-8HRS PRN Vitamin E (Vitamin E Acetate) 200 Unit Capsule 200 Unit PO DAILY Simvastatin 40 Mg Tablet 40 Mg PO HS Zoloft (Sertraline Hcl) 50 Mg Tablet 50 Mg PO DAILY Seroquel (Quetiapine Fumarate) 25 Mg Tablet 12.5 Mg PO HS Pantoprazole Sodium 40 Mg Tablet.dr 40 Mg PO DAILY Miralax (Polyethylene Glycol 3350) 119 Gm Powder 17 Gm PO DAILY Lisinopril 20 Mg Tablet 20 Mg PO DAILY Hydrochlorothiazide Tablet (Hydrochlorothiazide) 12.5 Mg Tablet 1 Tab PO DAILY Mucinex (Guaifenesin) 600 Mg Tablet.er 600 Mg PO Vitamin D2 (Ergocalciferol (Vitamin D2)) 50,000 Unit Capsule 1 Cap PO WEEKLY PRN Doxycycline Hyclate 100 Mg Tablet 100 Mg PO BID Colace (Docusate Sodium) 100 Mg Capsule 1 Cap PO BID PRN Calcium 600 + Vit D 400 Softgl (Calcium Carbonate/Vitamin D3) 1 Each Capsule 0.5 Each PO DAILY Aspirin 81 Mg Tab.chew 81 Mg PO DAILY Albuterol Sulfate Neb Soln (Albuterol Sulfate) 1.25 Mg/3 Ml Vial.neb 1 Vial NEB Q6HRS Acidophilus Capsule (L. Acidophilus/Pectin, [place]) 1 Each Capsule 2 Each PO AFTRNOON Vitals/I & O Vital Sign - Last 24 Hours 10/12/16 10/12/16 10/12/16 10/12/16 15:15 15:16 15:19 19:00 Temp 98.2 98.0 98.2 98.0 Pulse 94 104 Resp 28 B/P 126/61 193/106 Pulse Ox 93 96 O2 Delivery Nasal Cannula Nasal Cannula O2 Flow Rate 1.0 1.0 10/12/16 10/12/16 10/12/16 10/13/16 20:00 20:26 23:00 02:59 Temp 98.4 98.4 Pulse 101 Resp 18 B/P 160/91 Pulse Ox 93 90 95 O2 Delivery Nasal Cannula Room Air Nasal Cannula O2 Flow Rate 1.0 2.0 10/13/16 10/13/16 10/13/16 10/13/16 03:00 07:00 07:12 08:10 Temp 98.2 98.2 98.2 98.2 Pulse 102 86 Resp 22 B/P 167/93 101/76 Pulse Ox 96 98 98 O2 Delivery Room Air Nasal Cannula Nasal Cannula O2 Flow Rate 2.0 2.0 10/13/16 10/13/16 10/13/16 09:00 09:12 11:20 Pulse 86 86 B/P 101/76 101/76 O2 Delivery Nasal Cannula O2 Flow Rate 2.0 Intake and Output 10/12/16 10/12/16 10/13/16 15:00 23:00 07:00 Intake Total 360 ml 1600 ml Output Total 500 ml Balance 360 ml 1100 ml STU MAGANA III DO Oct 13, 2016 13:34
[2016-10-13] MEDS: ENOXAPARIN 40 MG/0.4 ML DISP.SYRIN. SQ SCH (17:26)
[2016-10-13] MEDS ORDERED: FUROSEMIDE 20 MG/2 ML VIAL IVP ONE (18:15)
--- NOTE | 2016-10-13 18:43 | EKG ---
[facility] [address] [place] [address] Test Date: 2016-10-13 Test Time: 18:40:21 Pat Name: LYNN RUTH Department: Room: [facility] Gender: F [employer]: JOSEPH : [id number] Requested By: STU MAGANA Order Number: [id number] Reading MD: Jose Schuler Measurements Intervals [place] Rate: 110 P: 90 FL: 182 QRS: 31 QRSD: 68 T: 54 QT: 340 QTc: 466 Interpretive Statements SINUS TACHYCARDIA ATRIAL PREMATURE COMPLEX(ES) NO SPECIFIC ECG ABNORMALITIES RI6.01 Electronically Signed On 10-31-2016 14:23:27 [employer] by Jose Schuler
[2016-10-13] MEDS: ALPRAZOLAM 0.25 MG TABLET PO PRN (18:46)
--- NOTE | 2016-10-13 19:59 | RAD ---
PROCEDURE Portable AP upright chest x-ray 6:49 p.m. HISTORY Shortness of air. Difficulty breathing. COMPARISON None currently available. FINDINGS Bilateral peribronchial thickening and interstitial lung infiltrates are seen. Epi B-lines are seen within the right lateral costophrenic angle. Small right-sided pleural effusion is seen. The findings are consistent with mild CHF. No pneumothorax is evident. The heart size is enlarged even for a portable study. Mediastinum is unremarkable. A ventricular peritoneal shunt catheter there is seen overlying the right medial chest. IMPRESSION Mild CHF. Electronically signed by: Js Bran MD (Oct 13, 2016 19:57:54)
[2016-10-13] MEDS: QUEtiapine 25 MG TABLET. PO SCH (20:13)
[2016-10-13] MEDS: SIMVASTATIN 40 MG TABLET. PO SCH (20:13)
[2016-10-14 03:00] VITALS: BP 159/90
[2016-10-14 07:00] VITALS: BP 156/88
[2016-10-14 07:06] LABS: CALCIUM 8.4 mg/dL (8.5-10.1); CREATININE 0.8 mg/dL (0.6-1.0); GFR 67.8
[2016-10-14] MEDS: IPRATRPIUM/ALBUTEROL 0.5/2.5MG 3 ML NEBU. NEB SCH ×4 (07:13→19:09)
[2016-10-14] MEDS: BUDESONIDE 0.5 MG/2 ML NEBU NEB SCH ×2 (07:13→19:09)
[2016-10-14 07:14] LABS: POTASSIUM 2.9 mmol/L (3.5-5.1)
[2016-10-14 07:20] LABS: BASO % 1 % (0-3); EOS % 2 % (0-3); HEMATOCRIT 27.2 % (36.0-47.0); HEMOGLOBIN 8.6 g/dL (12.0-15.5); LYMPH # 1.2 x10^3/uL (1.0-4.8); LYMPH % 18 % (24-48); MEAN CORPUSCULAR HEMOGLOBIN 28 pg (25-35); MEAN CORPUSCULAR HGB CONC 32 g/dL (31-37); MEAN CORPUSCULAR VOLUME 88 fL (79-100); MONO % 8 % (0-9); NEUT % 72 % (31-73); PLATELET COUNT 215 x10^3/uL (140-400); RED BLOOD COUNT 3.09 x10^6/uL (3.50-5.40); RED CELL DISTRIBUTION WIDTH 14.3 % (11.5-14.5); WHITE BLOOD COUNT 6.6 x10^3/uL (4.0-11.0)
[2016-10-14] MEDS: POLYETHYLENE GLYCOL 3350 17 GM PACKET. PO SCH (09:00)
[2016-10-14] MEDS: POTASSIUM CHLORIDE 20 MEQ/15 ML ORAL LIQUID. PEG SCH (09:44)
[2016-10-14] MEDS: PANTOPRAZOLE 40 MG TABLET. PO SCH (09:45)
[2016-10-14] MEDS: CEFPODOXIME PROXETIL 100 MG TABLET PO SCH ×2 (09:45→22:26)
[2016-10-14] MEDS: CALCIUM CARB/VIT D3 500/200 TABLET PO SCH (09:45)
[2016-10-14] MEDS: SERTRALINE 50 MG TABLET. PO SCH (09:45)
[2016-10-14] MEDS: LISINOPRIL 20 MG TABLET PO SCH (09:46)
[2016-10-14] MEDS: ASPIRIN 81 MG TAB.CHEW PO SCH (09:46)
[2016-10-14] MEDS: AMLODIPINE BESYLATE 10 MG TABLET PO SCH (09:46)
[2016-10-14] MEDS: POTASSIUM CHLORIDE 10MEQ 100 ML IV SCH ×4 (09:47→13:34)
[2016-10-14 10:42] VITALS: BP 115/61
--- NOTE | 2016-10-14 11:17 | PDOC ---
Infectious Disease Note Subjective Subjective Better. Eating ROS ROS GEN: Denies fevers, chills, sweats HEENT: Denies blurred vision, sore throat CV: Denies chest pain RESP: Denies shortness of air, cough GI: Denies n/v/d NEURO: Denies confusion, dizziness MSK: Denies weakness, joint pain/swelling Vital Sign Vital Signs Vital Signs Date Time Temp Pulse Resp B/P Pulse Ox O2 Delivery O2 Flow Rate FiO2 10/14/16 10:55 90 Room Air 10/14/16 10:42 98.4 95 16 115/61 2.0 98.4 Physical Exam PHYSICAL EXAM GENERAL: NAD, Alert HEENT: PERRL, OC/OP NECK: Supple, no JVD, no LN LUNGS: Clear HEART: S1S2, no gallop, no murmur ABD: Soft, NT, no organomegaly, no rebound EXT: No edema, no cyanosis [place]UCK[place]: Alert, oriented x 3, no focal neurologic deficit SKIN: No rash IV: ok Labs Lab Laboratory Tests Test 10/14/16 05:50 White Blood Count 6.6x10^3/uL (4.0-11.0) Red Blood Count 3.09x10^6/uL (3.50-5.40) Hemoglobin 8.6g/dL (12.0-15.5) Hematocrit 27.2% (36.0-47.0) Mean Corpuscular Volume 88fL (79-100) Mean Corpuscular Hemoglobin 28pg (25-35) Mean Corpuscular Hemoglobin Concent 32g/dL (31-37) Red Cell Distribution Width 14.3% (11.5-14.5) Platelet Count 215x10^3/uL (140-400) Neutrophils (%) (Auto) 72% (31-73) Lymphocytes (%) (Auto) 18% (24-48) Monocytes (%) (Auto) 8% (0-9) Eosinophils (%) (Auto) 2% (0-3) Basophils (%) (Auto) 1% (0-3) Neutrophils # (Auto) 4.7x10^3uL (1.8-7.7) Lymphocytes # (Auto) 1.2x10^3/uL (1.0-4.8) Monocytes # (Auto) 0.5x10^3/uL (0.0-1.1) Eosinophils # (Auto) 0.1x10^3/uL (0.0-0.7) Basophils # (Auto) 0.0x10^3/uL (0.0-0.2) Sodium Level 147mmol/L (136-145) Potassium Level 2.9mmol/L (3.5-5.1) Chloride Level 108mmol/L (98-107) Carbon Dioxide Level 30mmol/L (21-32) Anion Gap 9 (6-14) Blood Urea Nitrogen 8mg/dL (7-20) Creatinine 0.8mg/dL (0.6-1.0) Estimated GFR (Cockcroft-Gault) 67.8 Glucose Level 86mg/dL (70-99) Calcium Level 8.4mg/dL (8.5-10.1) Objective Assessment Klebsiella UTI -POA Leukocytosis Elbow wound - clean Diarrhea for 2 to 3 weeks per daughter but was on miralax and colace Dementia Plan Plan of Care Po cefpodox for 5 days D/w daughter will s/o, call if questions ANIRUDH COHEN MD Oct 14, 2016 11:17
[2016-10-14 15:15] VITALS: BP 137/77
--- NOTE | 2016-10-14 16:32 | PDOC ---
PROGRESS NOTES Chief Complaint Chief Complaint Sepsis Dehydration ASSESSMENT AND PLAN: 1. UTI: Klebsiella. on cefpodoxime x5d per ID 2. Sepsis: resolved 3. Diarrhea: per daughter, has been going on in [place] for 2-3 weeks while miralax continued. C.diff neg here. imodium PRN 4. Hypokalemia: monitor closely, replete orally 5. Weakness: OT/PT eval 6. Dementia: at baseline. cont home meds 7. Moderate malnutrition: supplements 8. Prophylaxis: lovenox 9. Dispo: back to [facility] when lytes stabilized History of Present Illness History of Present Illness Vitals Vitals Vital Signs Date Time Temp Pulse Resp B/P Pulse Ox O2 Delivery O2 Flow Rate FiO2 10/14/16 15:15 98.2 95 18 137/77 95 Nasal Cannula 2.0 98.2 Physical Exam Physical Exam Continued improvement today, feeding herself while in room General: Alert, Cooperative, No acute distress Heart: Regular rate, No murmurs Lungs: Clear Abdomen: Normal bowel sounds, Soft, No tenderness Extremities: No cyanosis, No edema Skin: No rashes, No breakdown Labs LABS Laboratory Tests Test 10/14/16 05:50 White Blood Count 6.6x10^3/uL (4.0-11.0) Red Blood Count 3.09x10^6/uL (3.50-5.40) Hemoglobin 8.6g/dL (12.0-15.5) Hematocrit 27.2% (36.0-47.0) Mean Corpuscular Volume 88fL (79-100) Mean Corpuscular Hemoglobin 28pg (25-35) Mean Corpuscular Hemoglobin Concent 32g/dL (31-37) Red Cell Distribution Width 14.3% (11.5-14.5) Platelet Count 215x10^3/uL (140-400) Neutrophils (%) (Auto) 72% (31-73) Lymphocytes (%) (Auto) 18% (24-48) Monocytes (%) (Auto) 8% (0-9) Eosinophils (%) (Auto) 2% (0-3) Basophils (%) (Auto) 1% (0-3) Neutrophils # (Auto) 4.7x10^3uL (1.8-7.7) Lymphocytes # (Auto) 1.2x10^3/uL (1.0-4.8) Monocytes # (Auto) 0.5x10^3/uL (0.0-1.1) Eosinophils # (Auto) 0.1x10^3/uL (0.0-0.7) Basophils # (Auto) 0.0x10^3/uL (0.0-0.2) Sodium Level 147mmol/L (136-145) Potassium Level 2.9mmol/L (3.5-5.1) Chloride Level 108mmol/L (98-107) Carbon Dioxide Level 30mmol/L (21-32) Anion Gap 9 (6-14) Blood Urea Nitrogen 8mg/dL (7-20) Creatinine 0.8mg/dL (0.6-1.0) Estimated GFR (Cockcroft-Gault) 67.8 Glucose Level 86mg/dL (70-99) Calcium Level 8.4mg/dL (8.5-10.1) Review of Systems Review of Systems pleasantly demented. has no c/o. daughter at bedside relates pertinent issues , incl ongoing diarrhea VALENTINA PAIZ MD Oct 14, 2016 16:32
[2016-10-14] MEDS: ENOXAPARIN 40 MG/0.4 ML DISP.SYRIN. SQ SCH ×2 (17:00→17:42)
--- NOTE | 2016-10-14 18:34 | PDOC ---
PULMONARY PROGRESS NOTES Vitals Vital Signs Date Time Temp Pulse Resp B/P Pulse Ox O2 Delivery O2 Flow Rate FiO2 10/14/16 15:15 98.2 95 18 137/77 95 Nasal Cannula 2.0 98.2 Lungs: Clear, Other (no wheezes or crackles heard) Labs Laboratory Tests Test 10/14/16 05:50 White Blood Count 6.6x10^3/uL (4.0-11.0) Red Blood Count 3.09x10^6/uL (3.50-5.40) Hemoglobin 8.6g/dL (12.0-15.5) Hematocrit 27.2% (36.0-47.0) Mean Corpuscular Volume 88fL (79-100) Mean Corpuscular Hemoglobin 28pg (25-35) Mean Corpuscular Hemoglobin Concent 32g/dL (31-37) Red Cell Distribution Width 14.3% (11.5-14.5) Platelet Count 215x10^3/uL (140-400) Neutrophils (%) (Auto) 72% (31-73) Lymphocytes (%) (Auto) 18% (24-48) Monocytes (%) (Auto) 8% (0-9) Eosinophils (%) (Auto) 2% (0-3) Basophils (%) (Auto) 1% (0-3) Neutrophils # (Auto) 4.7x10^3uL (1.8-7.7) Lymphocytes # (Auto) 1.2x10^3/uL (1.0-4.8) Monocytes # (Auto) 0.5x10^3/uL (0.0-1.1) Eosinophils # (Auto) 0.1x10^3/uL (0.0-0.7) Basophils # (Auto) 0.0x10^3/uL (0.0-0.2) Sodium Level 147mmol/L (136-145) Potassium Level 2.9mmol/L (3.5-5.1) Chloride Level 108mmol/L (98-107) Carbon Dioxide Level 30mmol/L (21-32) Anion Gap 9 (6-14) Blood Urea Nitrogen 8mg/dL (7-20) Creatinine 0.8mg/dL (0.6-1.0) Estimated GFR (Cockcroft-Gault) 67.8 Glucose Level 86mg/dL (70-99) Calcium Level 8.4mg/dL (8.5-10.1) Laboratory Tests Test 10/14/16 05:50 White Blood Count 6.6x10^3/uL (4.0-11.0) Red Blood Count 3.09x10^6/uL (3.50-5.40) Hemoglobin 8.6g/dL (12.0-15.5) Hematocrit 27.2% (36.0-47.0) Mean Corpuscular Volume 88fL (79-100) Mean Corpuscular Hemoglobin 28pg (25-35) Mean Corpuscular Hemoglobin Concent 32g/dL (31-37) Red Cell Distribution Width 14.3% (11.5-14.5) Platelet Count 215x10^3/uL (140-400) Neutrophils (%) (Auto) 72% (31-73) Lymphocytes (%) (Auto) 18% (24-48) Monocytes (%) (Auto) 8% (0-9) Eosinophils (%) (Auto) 2% (0-3) Basophils (%) (Auto) 1% (0-3) Neutrophils # (Auto) 4.7x10^3uL (1.8-7.7) Lymphocytes # (Auto) 1.2x10^3/uL (1.0-4.8) Monocytes # (Auto) 0.5x10^3/uL (0.0-1.1) Eosinophils # (Auto) 0.1x10^3/uL (0.0-0.7) Basophils # (Auto) 0.0x10^3/uL (0.0-0.2) Sodium Level 147mmol/L (136-145) Potassium Level 2.9mmol/L (3.5-5.1) Chloride Level 108mmol/L (98-107) Carbon Dioxide Level 30mmol/L (21-32) Anion Gap 9 (6-14) Blood Urea Nitrogen 8mg/dL (7-20) Creatinine 0.8mg/dL (0.6-1.0) Estimated GFR (Cockcroft-Gault) 67.8 Glucose Level 86mg/dL (70-99) Calcium Level 8.4mg/dL (8.5-10.1) Medications Active Scripts Medications Dose Route/Sig Days Date Category Xanax (Alprazolam) 0.25 Mg Tablet 0.25 Mg PO Q6-8HRS PRN 10/09/16 Reported Vitamin E (Vitamin E Acetate) 200 Unit Capsule 200 Unit PO DAILY 10/09/16 Reported Simvastatin 40 Mg Tablet 40 Mg PO HS 10/09/16 Reported Zoloft (Sertraline Hcl) 50 Mg Tablet 50 Mg PO DAILY 10/09/16 Reported Seroquel (Quetiapine Fumarate) 25 Mg Tablet 12.5 Mg PO HS 10/09/16 Reported Pantoprazole Sodium 40 Mg Tablet.dr 40 Mg PO DAILY 10/09/16 Reported Miralax (Polyethylene Glycol 3350) 119 Gm Powder 17 Gm PO DAILY 10/09/16 Reported Lisinopril 20 Mg Tablet 20 Mg PO DAILY 10/09/16 Reported Hydrochlorothiazide Tablet (Hydrochlorothiazide) 12.5 Mg Tablet 1 Tab PO DAILY 10/09/16 Reported Mucinex (Guaifenesin) 600 Mg Tablet.er 600 Mg PO 10/09/16 Reported Vitamin D2 (Ergocalciferol (Vitamin D2)) 50,000 Unit Capsule 1 Cap PO WEEKLY PRN 10/09/16 Reported Doxycycline Hyclate 100 Mg Tablet 100 Mg PO BID 10/09/16 Reported Colace (Docusate Sodium) 100 Mg Capsule 1 Cap PO BID PRN 10/09/16 Reported Calcium 600 + Vit D 400 Softgl (Calcium Carbonate/Vitamin D3) 1 Each Capsule 0.5 Each PO DAILY 10/09/16 Reported Aspirin 81 Mg Tab.chew 81 Mg PO DAILY 10/09/16 Reported Albuterol Sulfate Neb Soln (Albuterol Sulfate) 1.25 Mg/3 Ml Vial.neb 1 Vial NEB Q6HRS 10/09/16 Reported Acidophilus Capsule (L. Acidophilus/Pectin, [place]) 1 Each Capsule 2 Each PO AFTRNOON 10/09/16 Reported Impression . FULL CONSULT DICTATED ? New acute chf will check ECHO thanks DORINDA TORRES MD Oct 14, 2016 18:34
[2016-10-14 19:00] VITALS: BP 189/105
[2016-10-14] MEDS ORDERED: LOPERAMIDE 2 MG CAPSULE PO PRN (20:00)
[2016-10-14] MEDS: QUEtiapine 25 MG TABLET. PO SCH (22:26)
[2016-10-14] MEDS: SIMVASTATIN 40 MG TABLET. PO SCH (22:26)
[2016-10-14 23:00] VITALS: BP 151/81
[2016-10-15 03:00] VITALS: BP 142/82
--- NOTE | 2016-10-15 06:00 | CONS ---
DATE OF CONSULTATION: 10/14/2016 ATTENDING PHYSICIAN: Dr. Gisel Pena. REASON FOR CONSULTATION: The patient seen in pulmonary consultation at the request of Dr. Traylor for wheezing and abnormal x-ray. HISTORY OF PRESENT ILLNESS: The patient is an 86-year-old that really cannot provide much history. She presented from Alzheimer's unit, has been here for several days, initially was seen for a urinary tract infection, leukocytosis by Infectious Disease Service. She has been on some antibiotics. This morning, she became wheezy, short of breath. I was asked to see her in consultation. The patient does not think that she was short of breath. She had a chest x-ray revealing bilateral infiltrates compatible with new CHF in comparison to the film done on the . The patient does not think that she has had previous acute heart failure. PAST MEDICAL HISTORY: Alzheimer's dementia, hypertension. PAST SURGICAL HISTORY: Previous [employer] DES[employer] shunt. REVIEW OF SYSTEMS: Unobtainable secondary to the patient's condition. ALLERGIES: Listed to SUDAFED AND TRIPROLIDINE. SOCIAL HISTORY: She lives in an Alzheimer's unit. FAMILY HISTORY: Unknown. CURRENT MEDICATION: List was reviewed. Please see the MRAD. REVIEW OF SYSTEMS: Unobtainable secondary to the patient's condition. PHYSICAL EXAMINATION: VITAL SIGNS: The patient was in no respiratory distress, currently off of oxygen. Earlier, she had been on 2 liters of oxygen supplementation. She has been afebrile the last 3 days. GENERAL: She is in no respiratory distress. HEENT: Eyes, the sclerae were nonicteric. NECK: Jugular venous distention was not elevated. No lymphadenopathy. CHEST: Full expansion. LUNGS: Adequate airway flow, no wheezes. CARDIOVASCULAR: Regular rate and rhythm with S1, S2, no S3. ABDOMEN: Soft, nontender, nondistended. EXTREMITIES: No clubbing, cyanosis or edema. NEUROLOGIC: The patient was awake, alert, following commands. A detailed neuro exam was not performed. DATA: A chest x-ray reviewed. There is bilateral infiltrates compatible with CHF. Labs were reviewed. White count is normal. Electrolytes were noted. Albumin was low. IMPRESSION: 1. Acute onset of dyspnea and wheezing secondary to acute congestive heart failure. 2. Acute congestive heart failure. 3. Klebsiella urinary tract infection. 4. Diarrhea. 5. Alzheimer's dementia. PLAN: 1. Recommend avoiding any excessive IV fluids. 2. Lasix has been given. 3. Echocardiogram. 4. Follow clinical course and make further recommendations. I do appreciate the privilege in sharing this patient's care. DORINDA TORRES MD DR: THANG/kelli JOB#: [id number] / [id number]
[2016-10-15 06:42] LABS: BASO % 1 % (0-3); EOS % 4 % (0-3); HEMATOCRIT 27.9 % (36.0-47.0); HEMOGLOBIN 9.2 g/dL (12.0-15.5); LYMPH # 1.3 x10^3/uL (1.0-4.8); LYMPH % 15 % (24-48); MEAN CORPUSCULAR HEMOGLOBIN 28 pg (25-35); MEAN CORPUSCULAR HGB CONC 33 g/dL (31-37); MEAN CORPUSCULAR VOLUME 86 fL (79-100); MONO % 7 % (0-9); NEUT % 73 % (31-73); PLATELET COUNT 252 x10^3/uL (140-400); RED BLOOD COUNT 3.25 x10^6/uL (3.50-5.40); RED CELL DISTRIBUTION WIDTH 14.3 % (11.5-14.5); WHITE BLOOD COUNT 8.3 x10^3/uL (4.0-11.0)
[2016-10-15 07:00] VITALS: BP 156/86
[2016-10-15 07:02] LABS: CALCIUM 8.5 mg/dL (8.5-10.1); CREATININE 0.8 mg/dL (0.6-1.0)
[2016-10-15 07:03] LABS: GFR 67.8; POTASSIUM 3.2 mmol/L (3.5-5.1)
[2016-10-15] MEDS: IPRATRPIUM/ALBUTEROL 0.5/2.5MG 3 ML NEBU. NEB SCH ×4 (07:50→19:39)
[2016-10-15] MEDS: BUDESONIDE 0.5 MG/2 ML NEBU NEB SCH ×2 (07:50→19:39)
--- NOTE | 2016-10-15 08:56 | PDOC ---
PULMONARY PROGRESS NOTES Subjective PT WITH NO INCREASE SOA Vitals Vital Signs Date Time Temp Pulse Resp B/P Pulse Ox O2 Delivery O2 Flow Rate FiO2 10/15/16 07:51 Nasal Cannula 2.0 10/15/16 07:00 98.2 93 16 156/86 90 98.2 ROS: No Nausea, No Chest Pain, No Abdominal Pain, No Increase Cough General: Alert HEENT: Cervical Dz Lungs: Clear Cardiovascular: S1, S2 Abdomen: Soft, Non-tender Neuro Exam: Alert Extremities: No Edema Skin: Warm Labs Laboratory Tests Test 10/14/16 05:50 10/14/16 20:20 10/15/16 05:40 White Blood Count 6.6x10^3/uL (4.0-11.0) 8.3x10^3/uL (4.0-11.0) Red Blood Count 3.09x10^6/uL (3.50-5.40) 3.25x10^6/uL (3.50-5.40) Hemoglobin 8.6g/dL (12.0-15.5) 9.2g/dL (12.0-15.5) Hematocrit 27.2% (36.0-47.0) 27.9% (36.0-47.0) Mean Corpuscular Volume 88fL (79-100) 86fL (79-100) Mean Corpuscular Hemoglobin 28pg (25-35) 28pg (25-35) Mean Corpuscular Hemoglobin Concent 32g/dL (31-37) 33g/dL (31-37) Red Cell Distribution Width 14.3% (11.5-14.5) 14.3% (11.5-14.5) Platelet Count 215x10^3/uL (140-400) 252x10^3/uL (140-400) Neutrophils (%) (Auto) 72% (31-73) 73% (31-73) Lymphocytes (%) (Auto) 18% (24-48) 15% (24-48) Monocytes (%) (Auto) 8% (0-9) 7% (0-9) Eosinophils (%) (Auto) 2% (0-3) 4% (0-3) Basophils (%) (Auto) 1% (0-3) 1% (0-3) Neutrophils # (Auto) 4.7x10^3uL (1.8-7.7) 6.1x10^3uL (1.8-7.7) Lymphocytes # (Auto) 1.2x10^3/uL (1.0-4.8) 1.3x10^3/uL (1.0-4.8) Monocytes # (Auto) 0.5x10^3/uL (0.0-1.1) 0.6x10^3/uL (0.0-1.1) Eosinophils # (Auto) 0.1x10^3/uL (0.0-0.7) 0.3x10^3/uL (0.0-0.7) Basophils # (Auto) 0.0x10^3/uL (0.0-0.2) 0.0x10^3/uL (0.0-0.2) Sodium Level 147mmol/L (136-145) 143mmol/L (136-145) Potassium Level 2.9mmol/L (3.5-5.1) 3.5mmol/L (3.5-5.1) 3.2mmol/L (3.5-5.1) Chloride Level 108mmol/L (98-107) 105mmol/L (98-107) Carbon Dioxide Level 30mmol/L (21-32) 30mmol/L (21-32) Anion Gap 9 (6-14) 8 (6-14) Blood Urea Nitrogen 8mg/dL (7-20) 8mg/dL (7-20) Creatinine 0.8mg/dL (0.6-1.0) 0.8mg/dL (0.6-1.0) Estimated GFR (Cockcroft-Gault) 67.8 67.8 Glucose Level 86mg/dL (70-99) 84mg/dL (70-99) Calcium Level 8.4mg/dL (8.5-10.1) 8.5mg/dL (8.5-10.1) Laboratory Tests Test 10/14/16 20:20 10/15/16 05:40 Potassium Level 3.5mmol/L (3.5-5.1) 3.2mmol/L (3.5-5.1) White Blood Count 8.3x10^3/uL (4.0-11.0) Red Blood Count 3.25x10^6/uL (3.50-5.40) Hemoglobin 9.2g/dL (12.0-15.5) Hematocrit 27.9% (36.0-47.0) Mean Corpuscular Volume 86fL (79-100) Mean Corpuscular Hemoglobin 28pg (25-35) Mean Corpuscular Hemoglobin Concent 33g/dL (31-37) Red Cell Distribution Width 14.3% (11.5-14.5) Platelet Count 252x10^3/uL (140-400) Neutrophils (%) (Auto) 73% (31-73) Lymphocytes (%) (Auto) 15% (24-48) Monocytes (%) (Auto) 7% (0-9) Eosinophils (%) (Auto) 4% (0-3) Basophils (%) (Auto) 1% (0-3) Neutrophils # (Auto) 6.1x10^3uL (1.8-7.7) Lymphocytes # (Auto) 1.3x10^3/uL (1.0-4.8) Monocytes # (Auto) 0.6x10^3/uL (0.0-1.1) Eosinophils # (Auto) 0.3x10^3/uL (0.0-0.7) Basophils # (Auto) 0.0x10^3/uL (0.0-0.2) Sodium Level 143mmol/L (136-145) Chloride Level 105mmol/L (98-107) Carbon Dioxide Level 30mmol/L (21-32) Anion Gap 8 (6-14) Blood Urea Nitrogen 8mg/dL (7-20) Creatinine 0.8mg/dL (0.6-1.0) Estimated GFR (Cockcroft-Gault) 67.8 Glucose Level 84mg/dL (70-99) Calcium Level 8.5mg/dL (8.5-10.1) Medications Active Scripts Medications Dose Route/Sig Days Date Category Xanax (Alprazolam) 0.25 Mg Tablet 0.25 Mg PO Q6-8HRS PRN 10/09/16 Reported Vitamin E (Vitamin E Acetate) 200 Unit Capsule 200 Unit PO DAILY 10/09/16 Reported Simvastatin 40 Mg Tablet 40 Mg PO HS 10/09/16 Reported Zoloft (Sertraline Hcl) 50 Mg Tablet 50 Mg PO DAILY 10/09/16 Reported Seroquel (Quetiapine Fumarate) 25 Mg Tablet 12.5 Mg PO HS 10/09/16 Reported Pantoprazole Sodium 40 Mg Tablet.dr 40 Mg PO DAILY 10/09/16 Reported Miralax (Polyethylene Glycol 3350) 119 Gm Powder 17 Gm PO DAILY 10/09/16 Reported Lisinopril 20 Mg Tablet 20 Mg PO DAILY 10/09/16 Reported Hydrochlorothiazide Tablet (Hydrochlorothiazide) 12.5 Mg Tablet 1 Tab PO DAILY 10/09/16 Reported Mucinex (Guaifenesin) 600 Mg Tablet.er 600 Mg PO 10/09/16 Reported Vitamin D2 (Ergocalciferol (Vitamin D2)) 50,000 Unit Capsule 1 Cap PO WEEKLY PRN 10/09/16 Reported Doxycycline Hyclate 100 Mg Tablet 100 Mg PO BID 10/09/16 Reported Colace (Docusate Sodium) 100 Mg Capsule 1 Cap PO BID PRN 10/09/16 Reported Calcium 600 + Vit D 400 Softgl (Calcium Carbonate/Vitamin D3) 1 Each Capsule 0.5 Each PO DAILY 10/09/16 Reported Aspirin 81 Mg Tab.chew 81 Mg PO DAILY 10/09/16 Reported Albuterol Sulfate Neb Soln (Albuterol Sulfate) 1.25 Mg/3 Ml Vial.neb 1 Vial NEB Q6HRS 10/09/16 Reported Acidophilus Capsule (L. Acidophilus/Pectin, [place]) 1 Each Capsule 2 Each PO AFTRNOON 10/09/16 Reported Impression . 1. Acute onset of dyspnea and wheezing secondary to acute congestive heart failure. 2. Acute congestive heart failure. 3. Klebsiella urinary tract infection. 4. Diarrhea. 5. Alzheimer's dementia. Plan . ECHO PENDING REPEAT CXR SPOKE WITH DAUGHTER 6 MIN WALK PRIOR TO D/C DORINDA TORRES MD Oct 15, 2016 08:56
[2016-10-15] MEDS: POLYETHYLENE GLYCOL 3350 17 GM PACKET. PO SCH (09:00)
--- NOTE | 2016-10-15 09:15 | PDOC ---
PROGRESS NOTES Chief Complaint Chief Complaint Sepsis Dehydration ASSESSMENT AND PLAN: 1. UTI: Klebsiella. on cefpodoxime x5d per ID 2. Sepsis: resolved 3. Diarrhea: C.diff neg here. imodium PRN 4. Hypokalemia: slowly improving. monitor closely, replete orally 5. Weakness: OT/PT eval 6. Dementia: at baseline. cont home meds 7. Moderate malnutrition: supplements 8. Prophylaxis: lovenox 9. Dispo: back to [facility] when lytes stabilized History of Present Illness History of Present Illness Vitals Vitals Vital Signs Date Time Temp Pulse Resp B/P Pulse Ox O2 Delivery O2 Flow Rate FiO2 10/15/16 07:51 Nasal Cannula 2.0 10/15/16 07:00 98.2 93 16 156/86 90 98.2 Physical Exam Physical Exam General: Alert, Cooperative, No acute distress Heart: Regular rate, No murmurs Lungs: Clear Abdomen: Normal bowel sounds, Soft, No tenderness Extremities: No cyanosis, No edema Skin: No rashes, No breakdown Labs LABS Laboratory Tests Test 10/14/16 20:20 10/15/16 05:40 Potassium Level 3.5mmol/L (3.5-5.1) 3.2mmol/L (3.5-5.1) White Blood Count 8.3x10^3/uL (4.0-11.0) Red Blood Count 3.25x10^6/uL (3.50-5.40) Hemoglobin 9.2g/dL (12.0-15.5) Hematocrit 27.9% (36.0-47.0) Mean Corpuscular Volume 86fL (79-100) Mean Corpuscular Hemoglobin 28pg (25-35) Mean Corpuscular Hemoglobin Concent 33g/dL (31-37) Red Cell Distribution Width 14.3% (11.5-14.5) Platelet Count 252x10^3/uL (140-400) Neutrophils (%) (Auto) 73% (31-73) Lymphocytes (%) (Auto) 15% (24-48) Monocytes (%) (Auto) 7% (0-9) Eosinophils (%) (Auto) 4% (0-3) Basophils (%) (Auto) 1% (0-3) Neutrophils # (Auto) 6.1x10^3uL (1.8-7.7) Lymphocytes # (Auto) 1.3x10^3/uL (1.0-4.8) Monocytes # (Auto) 0.6x10^3/uL (0.0-1.1) Eosinophils # (Auto) 0.3x10^3/uL (0.0-0.7) Basophils # (Auto) 0.0x10^3/uL (0.0-0.2) Sodium Level 143mmol/L (136-145) Chloride Level 105mmol/L (98-107) Carbon Dioxide Level 30mmol/L (21-32) Anion Gap 8 (6-14) Blood Urea Nitrogen 8mg/dL (7-20) Creatinine 0.8mg/dL (0.6-1.0) Estimated GFR (Cockcroft-Gault) 67.8 Glucose Level 84mg/dL (70-99) Calcium Level 8.5mg/dL (8.5-10.1) Review of Systems Review of Systems sleepy this AM, but deneis any pain or problem. per daughter, had diarrhea incontinence this AM Comment Review of Relevant VALENTINA PAIZ MD Oct 15, 2016 09:15
[2016-10-15] MEDS ORDERED: POTASSIUM CHLORIDE 20 MEQ TABLET.ER. PO ONE (10:00)
[2016-10-15] MEDS: CEFPODOXIME PROXETIL 100 MG TABLET PO SCH ×2 (10:34→21:57)
[2016-10-15] MEDS: CALCIUM CARB/VIT D3 500/200 TABLET PO SCH (10:35)
[2016-10-15] MEDS: PANTOPRAZOLE 40 MG TABLET. PO SCH (10:35)
[2016-10-15] MEDS: LISINOPRIL 20 MG TABLET PO SCH (10:35)
[2016-10-15] MEDS: SERTRALINE 50 MG TABLET. PO SCH (10:35)
[2016-10-15] MEDS: ASPIRIN 81 MG TAB.CHEW PO SCH (10:36)
[2016-10-15] MEDS: AMLODIPINE BESYLATE 10 MG TABLET PO SCH (10:36)
[2016-10-15] MEDS: POTASSIUM CHLORIDE 20 MEQ/15 ML ORAL LIQUID. PEG SCH (10:37)
[2016-10-15 11:12] VITALS: BP 105/54
[2016-10-15 14:57] VITALS: BP 115/66
--- NOTE | 2016-10-15 15:55 | PDOC2 ---
PALLIATIVE CARE Palliative Care Note Palliative Care Consult requested by Dr. Traylor to address goals of care. Patient alert. Sitting up in chair and ready to eat lunch. Taking few sips of Boost Diagnosis: Dementia, poor po intake, Sepsis--treated with antibiotics, UTI; hypokalemia, diarrhea, mild CHF---echo pending. Code Status: DNR/DNI; Outside the Hospital form completed. Reviewed medical condition with daughter/DPOA Kiya and daughter Marquis on the phone. Patient has 10+ pound weight loss over last 3 months. Alb 2.1; Magdalena: more spiritually lately per daughter. Discussed options for care; continue current treatment plan of SNU to try to get stronger before returning to [facility]. vs Hospice evaluation. PT/OT notes reviewed. Recommendation of 2 weeks discussed. Daughters would like to pursue SNU to see if she can get stronger. Results of echo pending. Will have Hospice evaluation if appropriate after SNU Plan: [place] for SNU DNR/DNI Hospice Evaluation if patient does not progress in PT/OT MAGALIE MOTA Oct 15, 2016 15:55
[2016-10-15] MEDS: ENOXAPARIN 40 MG/0.4 ML DISP.SYRIN. SQ SCH (17:43)
[2016-10-15 19:00] VITALS: BP 136/68
[2016-10-15] MEDS: SIMVASTATIN 40 MG TABLET. PO SCH (21:57)
[2016-10-15] MEDS: QUEtiapine 25 MG TABLET. PO SCH (21:57)
[2016-10-15 23:00] VITALS: BP 148/83
[2016-10-16 03:00] VITALS: BP 156/81
[2016-10-16 06:04] LABS: BASO # 0.1 x10^3/uL (0.0-0.2); BASO % 1 % (0-3); EOS % 4 % (0-3); HEMATOCRIT 28.6 % (36.0-47.0); HEMOGLOBIN 9.5 g/dL (12.0-15.5); LYMPH # 1.3 x10^3/uL (1.0-4.8); LYMPH % 16 % (24-48); MEAN CORPUSCULAR HEMOGLOBIN 29 pg (25-35); MEAN CORPUSCULAR HGB CONC 33 g/dL (31-37); MEAN CORPUSCULAR VOLUME 86 fL (79-100); MONO % 8 % (0-9); NEUT % 71 % (31-73); PLATELET COUNT 261 x10^3/uL (140-400); RED BLOOD COUNT 3.34 x10^6/uL (3.50-5.40); RED CELL DISTRIBUTION WIDTH 14.2 % (11.5-14.5); WHITE BLOOD COUNT 8.4 x10^3/uL (4.0-11.0)
[2016-10-16 06:29] LABS: CALCIUM 8.8 mg/dL (8.5-10.1); CREATININE 0.8 mg/dL (0.6-1.0); GFR 67.8; POTASSIUM 3.4 mmol/L (3.5-5.1)
[2016-10-16 07:00] VITALS: BP 147/83
[2016-10-16] MEDS: BUDESONIDE 0.5 MG/2 ML NEBU NEB SCH ×2 (07:29→19:38)
[2016-10-16] MEDS: IPRATRPIUM/ALBUTEROL 0.5/2.5MG 3 ML NEBU. NEB SCH ×4 (07:29→19:38)
[2016-10-16] MEDS: POTASSIUM CHLORIDE 20 MEQ/15 ML ORAL LIQUID. PEG SCH (08:45)
[2016-10-16] MEDS: CEFPODOXIME PROXETIL 100 MG TABLET PO SCH (08:45)
[2016-10-16] MEDS: SERTRALINE 50 MG TABLET. PO SCH (08:46)
[2016-10-16] MEDS: LISINOPRIL 20 MG TABLET PO SCH (08:46)
[2016-10-16] MEDS: CALCIUM CARB/VIT D3 500/200 TABLET PO SCH (08:46)
[2016-10-16] MEDS: AMLODIPINE BESYLATE 10 MG TABLET PO SCH (08:46)
[2016-10-16] MEDS: ASPIRIN 81 MG TAB.CHEW PO SCH (08:46)
[2016-10-16] MEDS: PANTOPRAZOLE 40 MG TABLET. PO SCH (08:46)
[2016-10-16] MEDS: POLYETHYLENE GLYCOL 3350 17 GM PACKET. PO SCH (08:52)
[2016-10-16 11:00] VITALS: BP 114/63
--- NOTE | 2016-10-16 11:52 | PDOC ---
PULMONARY PROGRESS NOTES Subjective PT WITH NO INCREASE SOA Vitals Vital Signs Date Time Temp Pulse Resp B/P Pulse Ox O2 Delivery O2 Flow Rate FiO2 10/16/16 11:23 Room Air 2.0 10/16/16 11:00 63 28 114/63 98 10/16/16 07:00 98.2 98.2 ROS: No Nausea, No Chest Pain, No Abdominal Pain, No Increase Cough General: Alert HEENT: Cervical Dz Lungs: Clear Cardiovascular: S1, S2 Abdomen: Soft, Non-tender Neuro Exam: Alert Extremities: No Edema Skin: Warm Labs Laboratory Tests Test 10/14/16 20:20 10/15/16 05:40 10/16/16 05:14 Potassium Level 3.5mmol/L (3.5-5.1) 3.2mmol/L (3.5-5.1) 3.4mmol/L (3.5-5.1) White Blood Count 8.3x10^3/uL (4.0-11.0) 8.4x10^3/uL (4.0-11.0) Red Blood Count 3.25x10^6/uL (3.50-5.40) 3.34x10^6/uL (3.50-5.40) Hemoglobin 9.2g/dL (12.0-15.5) 9.5g/dL (12.0-15.5) Hematocrit 27.9% (36.0-47.0) 28.6% (36.0-47.0) Mean Corpuscular Volume 86fL (79-100) 86fL (79-100) Mean Corpuscular Hemoglobin 28pg (25-35) 29pg (25-35) Mean Corpuscular Hemoglobin Concent 33g/dL (31-37) 33g/dL (31-37) Red Cell Distribution Width 14.3% (11.5-14.5) 14.2% (11.5-14.5) Platelet Count 252x10^3/uL (140-400) 261x10^3/uL (140-400) Neutrophils (%) (Auto) 73% (31-73) 71% (31-73) Lymphocytes (%) (Auto) 15% (24-48) 16% (24-48) Monocytes (%) (Auto) 7% (0-9) 8% (0-9) Eosinophils (%) (Auto) 4% (0-3) 4% (0-3) Basophils (%) (Auto) 1% (0-3) 1% (0-3) Neutrophils # (Auto) 6.1x10^3uL (1.8-7.7) 6.0x10^3uL (1.8-7.7) Lymphocytes # (Auto) 1.3x10^3/uL (1.0-4.8) 1.3x10^3/uL (1.0-4.8) Monocytes # (Auto) 0.6x10^3/uL (0.0-1.1) 0.7x10^3/uL (0.0-1.1) Eosinophils # (Auto) 0.3x10^3/uL (0.0-0.7) 0.4x10^3/uL (0.0-0.7) Basophils # (Auto) 0.0x10^3/uL (0.0-0.2) 0.1x10^3/uL (0.0-0.2) Sodium Level 143mmol/L (136-145) 144mmol/L (136-145) Chloride Level 105mmol/L (98-107) 106mmol/L (98-107) Carbon Dioxide Level 30mmol/L (21-32) 30mmol/L (21-32) Anion Gap 8 (6-14) 8 (6-14) Blood Urea Nitrogen 8mg/dL (7-20) 6mg/dL (7-20) Creatinine 0.8mg/dL (0.6-1.0) 0.8mg/dL (0.6-1.0) Estimated GFR (Cockcroft-Gault) 67.8 67.8 Glucose Level 84mg/dL (70-99) 87mg/dL (70-99) Calcium Level 8.5mg/dL (8.5-10.1) 8.8mg/dL (8.5-10.1) Magnesium Level 1.3mg/dL (1.8-2.4) Laboratory Tests Test 10/16/16 05:14 White Blood Count 8.4x10^3/uL (4.0-11.0) Red Blood Count 3.34x10^6/uL (3.50-5.40) Hemoglobin 9.5g/dL (12.0-15.5) Hematocrit 28.6% (36.0-47.0) Mean Corpuscular Volume 86fL (79-100) Mean Corpuscular Hemoglobin 29pg (25-35) Mean Corpuscular Hemoglobin Concent 33g/dL (31-37) Red Cell Distribution Width 14.2% (11.5-14.5) Platelet Count 261x10^3/uL (140-400) Neutrophils (%) (Auto) 71% (31-73) Lymphocytes (%) (Auto) 16% (24-48) Monocytes (%) (Auto) 8% (0-9) Eosinophils (%) (Auto) 4% (0-3) Basophils (%) (Auto) 1% (0-3) Neutrophils # (Auto) 6.0x10^3uL (1.8-7.7) Lymphocytes # (Auto) 1.3x10^3/uL (1.0-4.8) Monocytes # (Auto) 0.7x10^3/uL (0.0-1.1) Eosinophils # (Auto) 0.4x10^3/uL (0.0-0.7) Basophils # (Auto) 0.1x10^3/uL (0.0-0.2) Sodium Level 144mmol/L (136-145) Potassium Level 3.4mmol/L (3.5-5.1) Chloride Level 106mmol/L (98-107) Carbon Dioxide Level 30mmol/L (21-32) Anion Gap 8 (6-14) Blood Urea Nitrogen 6mg/dL (7-20) Creatinine 0.8mg/dL (0.6-1.0) Estimated GFR (Cockcroft-Gault) 67.8 Glucose Level 87mg/dL (70-99) Calcium Level 8.8mg/dL (8.5-10.1) Magnesium Level 1.3mg/dL (1.8-2.4) Medications Active Scripts Medications Dose Route/Sig Days Date Category Xanax (Alprazolam) 0.25 Mg Tablet 0.25 Mg PO Q6-8HRS PRN 10/09/16 Reported Vitamin E (Vitamin E Acetate) 200 Unit Capsule 200 Unit PO DAILY 10/09/16 Reported Simvastatin 40 Mg Tablet 40 Mg PO HS 10/09/16 Reported Zoloft (Sertraline Hcl) 50 Mg Tablet 50 Mg PO DAILY 10/09/16 Reported Seroquel (Quetiapine Fumarate) 25 Mg Tablet 12.5 Mg PO HS 10/09/16 Reported Pantoprazole Sodium 40 Mg Tablet.dr 40 Mg PO DAILY 10/09/16 Reported Miralax (Polyethylene Glycol 3350) 119 Gm Powder 17 Gm PO DAILY 10/09/16 Reported Lisinopril 20 Mg Tablet 20 Mg PO DAILY 10/09/16 Reported Hydrochlorothiazide Tablet (Hydrochlorothiazide) 12.5 Mg Tablet 1 Tab PO DAILY 10/09/16 Reported Mucinex (Guaifenesin) 600 Mg Tablet.er 600 Mg PO 10/09/16 Reported Vitamin D2 (Ergocalciferol (Vitamin D2)) 50,000 Unit Capsule 1 Cap PO WEEKLY PRN 10/09/16 Reported Doxycycline Hyclate 100 Mg Tablet 100 Mg PO BID 10/09/16 Reported Colace (Docusate Sodium) 100 Mg Capsule 1 Cap PO BID PRN 10/09/16 Reported Calcium 600 + Vit D 400 Softgl (Calcium Carbonate/Vitamin D3) 1 Each Capsule 0.5 Each PO DAILY 10/09/16 Reported Aspirin 81 Mg Tab.chew 81 Mg PO DAILY 10/09/16 Reported Albuterol Sulfate Neb Soln (Albuterol Sulfate) 1.25 Mg/3 Ml Vial.neb 1 Vial NEB Q6HRS 10/09/16 Reported Acidophilus Capsule (L. Acidophilus/Pectin, [place]) 1 Each Capsule 2 Each PO AFTRNOON 10/09/16 Reported Impression . 1. Acute onset of dyspnea and wheezing secondary to acute congestive heart failure. 2. Acute congestive heart failure. 3. Klebsiella urinary tract infection. 4. Diarrhea. 5. Alzheimer's dementia. Plan . RESP STATUS IMPROVED D/C PER PCP DORINDA TORRES MD Oct 16, 2016 11:52
[2016-10-16 15:00] VITALS: BP 112/60
--- NOTE | 2016-10-16 15:41 | PDOC ---
PROGRESS NOTES Chief Complaint Chief Complaint Sepsis Dehydration ASSESSMENT AND PLAN: 1. UTI: Klebsiella. on cefpodoxime x5d per ID, completed 2. Sepsis: resolved 3. Diarrhea: C.diff neg here. imodium PRN 4. Hypomagnesemia: severe. replete IV 4. Hypokalemia: slowly improving. monitor closely, replete orally 5. Weakness: OT/PT eval 6. Dementia: at baseline. cont home meds 7. Moderate malnutrition: supplements 8. Prophylaxis: lovenox 9. Dispo: back to [facility] in AM History of Present Illness History of Present Illness Vitals Vitals Vital Signs Date Time Temp Pulse Resp B/P Pulse Ox O2 Delivery O2 Flow Rate FiO2 10/16/16 15:16 2.0 10/16/16 11:23 Room Air 10/16/16 11:00 63 28 114/63 98 10/16/16 07:00 98.2 98.2 Physical Exam Physical Exam General: Alert, Cooperative, No acute distress Heart: Regular rate, No murmurs Lungs: Clear Abdomen: Normal bowel sounds, Soft, No tenderness Extremities: No cyanosis, No edema Skin: No rashes, No breakdown Labs LABS Laboratory Tests Test 10/16/16 05:14 White Blood Count 8.4x10^3/uL (4.0-11.0) Red Blood Count 3.34x10^6/uL (3.50-5.40) Hemoglobin 9.5g/dL (12.0-15.5) Hematocrit 28.6% (36.0-47.0) Mean Corpuscular Volume 86fL (79-100) Mean Corpuscular Hemoglobin 29pg (25-35) Mean Corpuscular Hemoglobin Concent 33g/dL (31-37) Red Cell Distribution Width 14.2% (11.5-14.5) Platelet Count 261x10^3/uL (140-400) Neutrophils (%) (Auto) 71% (31-73) Lymphocytes (%) (Auto) 16% (24-48) Monocytes (%) (Auto) 8% (0-9) Eosinophils (%) (Auto) 4% (0-3) Basophils (%) (Auto) 1% (0-3) Neutrophils # (Auto) 6.0x10^3uL (1.8-7.7) Lymphocytes # (Auto) 1.3x10^3/uL (1.0-4.8) Monocytes # (Auto) 0.7x10^3/uL (0.0-1.1) Eosinophils # (Auto) 0.4x10^3/uL (0.0-0.7) Basophils # (Auto) 0.1x10^3/uL (0.0-0.2) Sodium Level 144mmol/L (136-145) Potassium Level 3.4mmol/L (3.5-5.1) Chloride Level 106mmol/L (98-107) Carbon Dioxide Level 30mmol/L (21-32) Anion Gap 8 (6-14) Blood Urea Nitrogen 6mg/dL (7-20) Creatinine 0.8mg/dL (0.6-1.0) Estimated GFR (Cockcroft-Gault) 67.8 Glucose Level 87mg/dL (70-99) Calcium Level 8.8mg/dL (8.5-10.1) Magnesium Level 1.3mg/dL (1.8-2.4) Review of Systems Review of Systems plesantly demented. issues d/w daughter VALENTINA PAIZ MD Oct 16, 2016 15:41
[2016-10-16] MEDS ORDERED: MAGNESIUM SULFATE 4GM 100 ML IV ONE (16:00)
[2016-10-16] MEDS: ENOXAPARIN 40 MG/0.4 ML DISP.SYRIN. SQ SCH (17:45)
[2016-10-16] MEDS ORDERED: GUAI600T38 PO (17:46)
[2016-10-16] MEDS ORDERED: POLY17PO5 PO (17:46)
[2016-10-16] MEDS ORDERED: AMLO10TA2 PO (17:46)
[2016-10-16] MEDS ORDERED: LOPE2CAP PO (17:46)
[2016-10-16 19:00] VITALS: BP 106/56
[2016-10-16] MEDS: SIMVASTATIN 40 MG TABLET. PO SCH (21:30)
[2016-10-16] MEDS: ALPRAZOLAM 0.25 MG TABLET PO PRN (21:30)
[2016-10-16] MEDS: QUEtiapine 25 MG TABLET. PO SCH (21:30)
[2016-10-16 22:56] VITALS: BP 108/55
[2016-10-17 03:18] VITALS: BP 124/70
[2016-10-17 05:00] LABS: BASO % 0 % (0-3); EOS % 4 % (0-3); HEMATOCRIT 28.6 % (36.0-47.0); HEMOGLOBIN 9.1 g/dL (12.0-15.5); LYMPH # 1.3 x10^3/uL (1.0-4.8); LYMPH % 14 % (24-48); MEAN CORPUSCULAR HEMOGLOBIN 28 pg (25-35); MEAN CORPUSCULAR HGB CONC 32 g/dL (31-37); MEAN CORPUSCULAR VOLUME 87 fL (79-100); MONO % 8 % (0-9); NEUT % 74 % (31-73); PLATELET COUNT 262 x10^3/uL (140-400); RED BLOOD COUNT 3.29 x10^6/uL (3.50-5.40); RED CELL DISTRIBUTION WIDTH 14.5 % (11.5-14.5); WHITE BLOOD COUNT 8.7 x10^3/uL (4.0-11.0)
[2016-10-17 05:38] LABS: CALCIUM 8.9 mg/dL (8.5-10.1); CREATININE 0.9 mg/dL (0.6-1.0); GFR 59.2; POTASSIUM 3.7 mmol/L (3.5-5.1)
[2016-10-17 07:00] VITALS: BP 139/65
[2016-10-17] MEDS: IPRATRPIUM/ALBUTEROL 0.5/2.5MG 3 ML NEBU. NEB SCH ×2 (07:16→11:21)
[2016-10-17] MEDS: BUDESONIDE 0.5 MG/2 ML NEBU NEB SCH (07:16)
--- NOTE | 2016-10-17 09:02 | PDOC ---
PROGRESS NOTES Chief Complaint Chief Complaint Sepsis Dehydration ASSESSMENT AND PLAN: 1. UTI: Klebsiella. on cefpodoxime x5d per ID, completed 2. Sepsis: resolved 3. Diarrhea: C.diff neg here. imodium PRN 4. Hypomagnesemia: repleted 4. Hypokalemia: resolved 5. Weakness: OT/PT eval done, needs rehab 6. Dementia: at baseline. cont home meds 7. Moderate malnutrition: supplements 8. Prophylaxis: lovenox 9. Dispo: SNF today History of Present Illness History of Present Illness Vitals Vitals Vital Signs Date Time Temp Pulse Resp B/P Pulse Ox O2 Delivery O2 Flow Rate FiO2 10/17/16 07:14 97 Nasal Cannula 2.0 10/17/16 07:00 97.7 80 18 139/65 97.7 Physical Exam Physical Exam General: Alert, Cooperative, No acute distress Heart: Regular rate, No murmurs Lungs: Clear Abdomen: Normal bowel sounds, Soft, No tenderness Extremities: No cyanosis, No edema Skin: No rashes, No breakdown Labs LABS Laboratory Tests Test 10/16/16 16:10 10/17/16 03:25 Magnesium Level 1.6mg/dL (1.8-2.4) 2.3mg/dL (1.8-2.4) White Blood Count 8.7x10^3/uL (4.0-11.0) Red Blood Count 3.29x10^6/uL (3.50-5.40) Hemoglobin 9.1g/dL (12.0-15.5) Hematocrit 28.6% (36.0-47.0) Mean Corpuscular Volume 87fL (79-100) Mean Corpuscular Hemoglobin 28pg (25-35) Mean Corpuscular Hemoglobin Concent 32g/dL (31-37) Red Cell Distribution Width 14.5% (11.5-14.5) Platelet Count 262x10^3/uL (140-400) Neutrophils (%) (Auto) 74% (31-73) Lymphocytes (%) (Auto) 14% (24-48) Monocytes (%) (Auto) 8% (0-9) Eosinophils (%) (Auto) 4% (0-3) Basophils (%) (Auto) 0% (0-3) Neutrophils # (Auto) 6.4x10^3uL (1.8-7.7) Lymphocytes # (Auto) 1.3x10^3/uL (1.0-4.8) Monocytes # (Auto) 0.7x10^3/uL (0.0-1.1) Eosinophils # (Auto) 0.3x10^3/uL (0.0-0.7) Basophils # (Auto) 0.0x10^3/uL (0.0-0.2) Sodium Level 146mmol/L (136-145) Potassium Level 3.7mmol/L (3.5-5.1) Chloride Level 108mmol/L (98-107) Carbon Dioxide Level 30mmol/L (21-32) Anion Gap 8 (6-14) Blood Urea Nitrogen 9mg/dL (7-20) Creatinine 0.9mg/dL (0.6-1.0) Estimated GFR (Cockcroft-Gault) 59.2 Glucose Level 89mg/dL (70-99) Calcium Level 8.9mg/dL (8.5-10.1) Review of Systems Review of Systems no problems. gen weakness Comment Review of Relevant I have reviewed the following items qasim (where applicable) has been applied. Labs Laboratory Tests Test 10/16/16 05:14 10/16/16 16:10 10/17/16 03:25 White Blood Count 8.4x10^3/uL (4.0-11.0) 8.7x10^3/uL (4.0-11.0) Red Blood Count 3.34x10^6/uL (3.50-5.40) 3.29x10^6/uL (3.50-5.40) Hemoglobin 9.5g/dL (12.0-15.5) 9.1g/dL (12.0-15.5) Hematocrit 28.6% (36.0-47.0) 28.6% (36.0-47.0) Mean Corpuscular Volume 86fL (79-100) 87fL (79-100) Mean Corpuscular Hemoglobin 29pg (25-35) 28pg (25-35) Mean Corpuscular Hemoglobin Concent 33g/dL (31-37) 32g/dL (31-37) Red Cell Distribution Width 14.2% (11.5-14.5) 14.5% (11.5-14.5) Platelet Count 261x10^3/uL (140-400) 262x10^3/uL (140-400) Neutrophils (%) (Auto) 71% (31-73) 74% (31-73) Lymphocytes (%) (Auto) 16% (24-48) 14% (24-48) Monocytes (%) (Auto) 8% (0-9) 8% (0-9) Eosinophils (%) (Auto) 4% (0-3) 4% (0-3) Basophils (%) (Auto) 1% (0-3) 0% (0-3) Neutrophils # (Auto) 6.0x10^3uL (1.8-7.7) 6.4x10^3uL (1.8-7.7) Lymphocytes # (Auto) 1.3x10^3/uL (1.0-4.8) 1.3x10^3/uL (1.0-4.8) Monocytes # (Auto) 0.7x10^3/uL (0.0-1.1) 0.7x10^3/uL (0.0-1.1) Eosinophils # (Auto) 0.4x10^3/uL (0.0-0.7) 0.3x10^3/uL (0.0-0.7) Basophils # (Auto) 0.1x10^3/uL (0.0-0.2) 0.0x10^3/uL (0.0-0.2) Sodium Level 144mmol/L (136-145) 146mmol/L (136-145) Potassium Level 3.4mmol/L (3.5-5.1) 3.7mmol/L (3.5-5.1) Chloride Level 106mmol/L (98-107) 108mmol/L (98-107) Carbon Dioxide Level 30mmol/L (21-32) 30mmol/L (21-32) Anion Gap 8 (6-14) 8 (6-14) Blood Urea Nitrogen 6mg/dL (7-20) 9mg/dL (7-20) Creatinine 0.8mg/dL (0.6-1.0) 0.9mg/dL (0.6-1.0) Estimated GFR (Cockcroft-Gault) 67.8 59.2 Glucose Level 87mg/dL (70-99) 89mg/dL (70-99) Calcium Level 8.8mg/dL (8.5-10.1) 8.9mg/dL (8.5-10.1) Magnesium Level 1.3mg/dL (1.8-2.4) 1.6mg/dL (1.8-2.4) 2.3mg/dL (1.8-2.4) Laboratory Tests Test 10/16/16 16:10 10/17/16 03:25 Magnesium Level 1.6mg/dL (1.8-2.4) 2.3mg/dL (1.8-2.4) White Blood Count 8.7x10^3/uL (4.0-11.0) Red Blood Count 3.29x10^6/uL (3.50-5.40) Hemoglobin 9.1g/dL (12.0-15.5) Hematocrit 28.6% (36.0-47.0) Mean Corpuscular Volume 87fL (79-100) Mean Corpuscular Hemoglobin 28pg (25-35) Mean Corpuscular Hemoglobin Concent 32g/dL (31-37) Red Cell Distribution Width 14.5% (11.5-14.5) Platelet Count 262x10^3/uL (140-400) Neutrophils (%) (Auto) 74% (31-73) Lymphocytes (%) (Auto) 14% (24-48) Monocytes (%) (Auto) 8% (0-9) Eosinophils (%) (Auto) 4% (0-3) Basophils (%) (Auto) 0% (0-3) Neutrophils # (Auto) 6.4x10^3uL (1.8-7.7) Lymphocytes # (Auto) 1.3x10^3/uL (1.0-4.8) Monocytes # (Auto) 0.7x10^3/uL (0.0-1.1) Eosinophils # (Auto) 0.3x10^3/uL (0.0-0.7) Basophils # (Auto) 0.0x10^3/uL (0.0-0.2) Sodium Level 146mmol/L (136-145) Potassium Level 3.7mmol/L (3.5-5.1) Chloride Level 108mmol/L (98-107) Carbon Dioxide Level 30mmol/L (21-32) Anion Gap 8 (6-14) Blood Urea Nitrogen 9mg/dL (7-20) Creatinine 0.9mg/dL (0.6-1.0) Estimated GFR (Cockcroft-Gault) 59.2 Glucose Level 89mg/dL (70-99) Calcium Level 8.9mg/dL (8.5-10.1) Microbiology 10/10/16 Blood Culture - Final, Complete NO GROWTH AFTER 5 DAYS 10/09/16 Urine Culture - Final, Complete 10/09/16 Urine Culture Result 1 (ROSSY) - Final, Complete 10/09/16 Antimicrobic Susceptibility - Final, Complete Medications Current Medications Potassium Chloride 40 meq 40 meq 1X ONCE PO ; Start 10/09/16 at 13:15; Stop 10/09 at 17:19; Status DC Ceftriaxone Sodium (Rocephin 1gm Ivpb For Omni) 50 ml @ 100 mls/hr 1X ONCE IV ; Start 10/09/16 at 13:15; Stop 10/09/16 at 13:44; Status Cancel Ondansetron HCl 4 mg 4 mg PRN Q8HRS PRN IV NAUSEA/VOMITING; Start 10/09/16 at 13 :15; Stop 10/10/16 at 13:14; Status DC Sodium Chloride (Iv Sodium Chloride 0.9% 1000ml Bag) 1,000 ml @ 150 mls/hr Q6H40M IV Last administered on 10/10/16t 08:00; Start 10/09/16 at 13:15; Stop 10/10/16 at 13:14; Status DC Acetaminophen (Tylenol) 650 mg PRN Q4HRS PRN PO FEVER; Start 10/09/16 at 13:15; Stop 10/10/16 at 13:14; Status DC Albuterol/ Ipratropium 3 ml 3 ml RTQID NEB Last administered on 10/10/16 15:36 ; Start 10/09/16 at 16:00; Stop 10/10/16 at 15:59; Status DC Potassium Chloride/Sodium Chloride (KCl 20 Meq-NS 1,000 ml Iv Soln) 1,000 ml @ 75 mls/hr 1X ONCE IV Last administered on 10/09/16 13:55; Start 10/09/16 at 13: 15; Stop 10/10/16 at 02:34; Status DC Piperacillin Sod/ Tazobactam Sod 1 each 1 each PRN DAILY PRN MC SEE COMMENTS; Start 10/09/16 at 13:30; Stop 10/10/16 at 13:56; Status DC Piperacillin Sod/ Tazobactam Sod 3.375 gm/Sodium Chloride 50 ml @ 100 mls/hr ONCE ONCE IV Last administered on 10/09/16 13:56; Start 10/09/16 at 13:45; Stop 10/09/16 at 14:14; Status DC Sodium Chloride 1,000 ml @ 1,000 mls/hr 1X ONCE IV Last administered on 13:54; Start 10/09/16 at 13:45; Stop 10/09/16 at 14:44; Status DC Piperacillin Sod/ Tazobactam Sod/ Sodium Chloride (Zosyn/Iv Sodium Chloride 0.9 % 50ml) 50 ml @ 100 mls/hr Q6HRS IV Last administered on 10/11/16 11:48; Start 10/09/16 at 19:00; Stop 10/11/16 at 14:06; Status DC Potassium Chloride (Klor-Con) 20 meq DAILYWBKFT PO ; Start 10/10/16 at 08:00; Stop 10/10/16 at 08:23; Status DC Potassium Chloride 40 meq 40 meq 1X ONCE PO ; Start 10/09/16 at 15:30; Stop 10/09 at 15:31; Status DC Magnesium Sulfate/ Dextrose (Magnesium Sulfate PREMIX 2GM) 50 ml @ 25 mls/hr 1X ONCE IV Last administered on 10/09/16 17:09; Start 10/09/16 at 15:30; Stop 10/09/16 at 17:29; Status DC Enoxaparin Sodium (Lovenox Per Pharmacy Prophylaxis Dosing) 1 each PRN DAILY PRN MC SEE COMMENTS; Start 10/09/16 at 15:45; Stop 10/10/16 at 13:48; Status DC Budesonide (Pulmicort) 0.5 mg RTBID NEB Last administered on 10/17/16 07:16; Start 10/09/16 at 20:00 Vancomycin HCl (Vanco Per Pharmacy) 1 each PRN DAILY PRN MC SEE COMMENTS Last administered on 10/10/16 14:00; Start 10/09/16 at 17:00; Stop 10/11/16 at 14:06; Status DC Enoxaparin Sodium 40 mg 40 mg Q24H SQ Last administered on 10/16/16 17:45; Start 10/09/16 at 17:00 Vancomycin HCl 1.5 gm/Sodium Chloride 500 ml @ 250 mls/hr 1X ONCE IV Last administered on 10/09/16 19:54; Start 10/09/16 at 18:00; Stop 10/09/16 at 19:59; Status DC Vancomycin HCl/ Sodium Chloride (Iv Sodium Chloride 0.9% 250ml) 250 ml @ 250 mls/hr Q24H IV Last administered on 10/10/16 19:15; Start 10/10/16 at 18:00; Stop 10/11/16 at 14:19; Status DC Vancomycin HCl 1 each 1X ONCE MC ; Start 10/11/16 at 17:30; Stop 10/11/16 at 17 :30; Status DC Potassium Chloride (KCl Oral Soln) 40 meq 1X ONCE PEG Last administered on 10/09 18:08; Start 10/09/16 at 17:30; Stop 10/09/16 at 17:31; Status DC Alprazolam (Xanax) 0.25 mg Q6HRS PRN PO ANXIETY / AGITATION Last administered on 10/16/16 21:30; Start 10/09/16 at 17:30 Aspirin (Children'S Aspirin) 81 mg DAILYWBKFT PO Last administered on 08:46; Start 10/10/16 at 08:00 Docusate Sodium (Colace) 100 mg BID PRN PO CONSTIPATION; Start 10/09/16 at 17:30 Guaifenesin (Mucinex) 600 mg BID PRN PO cough; Start 10/09/16 at 17:30 Lisinopril (Prinivil) 20 mg DAILY PO Last administered on 10/16/16 08:46; Start 10/10/16 at 09:00 Pantoprazole Sodium (Protonix) 40 mg DAILYAC PO Last administered on 10/16/16 08:46; Start 10/10/16 at 07:30 Polyethylene Glycol (miraLAX PACKET) 17 gm DAILY PO ; Start 10/10/16 at 09:00; Stop 10/16/16 at 17:35; Status DC Quetiapine Fumarate (SEROquel) 12.5 mg HS PO Last administered on 10/16/16 21: 30; Start 10/09/16 at 21:00 Sertraline HCl (Zoloft) 50 mg DAILY PO Last administered on 10/16/16 08:46; Start 10/10/16 at 09:00 Simvastatin (Zocor) 40 mg HS PO Last administered on 10/16/16 21:30; Start 10/09/16 at 21:00 Non-Formulary Medication 1 vial Q6HRS NEB ; Start 10/09/16 at 18:00; Status UNV Calcium/Vitamin D (Oscal D 500mg/ 200uts) 1 tab DAILYWBKFT PO Last administered on 10/16/16 08:46; Start 10/10/16 at 08:00 Albuterol Sulfate (Ventolin Neb Soln) 2.5 mg PRN Q6HRS PRN NEB SHORTNESS OF BREATH Last administered on 10/13/16 02:59; Start 10/09/16 at 17:45 Potassium Chloride 20 meq 20 meq DAILY08 PEG Last administered on 10/16/16 08: 45; Start 10/10/16 at 09:00 Potassium Chloride (KCl Premix 10meq) 100 ml @ 100 mls/hr Q1H IV Last administered on 10/10/16 10:58; Start 10/10/16 at 09:00; Stop 10/10/16 at 10:59; Status DC Potassium Chloride 40 meq 40 meq 1X ONCE PO Last administered on 10/10/16 08: 54; Start 10/10/16 at 08:30; Stop 10/10/16 at 08:31; Status DC Sodium Chloride (Iv Sodium Chloride 0.9% 1000ml Bag) 1,000 ml @ 75 mls/hr [id number] IV Last administered on 10/13/16 05:58; Start 10/10/16 at 13:00; Stop 10/13/16 at 18:38; Status DC Acetaminophen (Tylenol) 650 mg 1X ONCE PO Last administered on 10/10/16 14:25 ; Start 10/10/16 at 14:30; Stop 10/10/16 at 14:31; Status DC Potassium Chloride (KCl Oral Soln) 40 meq 1X ONCE PO ; Start 10/10/16 at 14:30; Stop 10/10/16 at 14:31; Status DC Albuterol/ Ipratropium 3 ml 3 ml RTQID NEB Last administered on 10/17/16 07:16 ; Start 10/10/16 at 16:00 Potassium Chloride 100 ml @ 100 mls/hr Q1H IV Last administered on 10/10/16 22 :16; Start 10/10/16 at 17:00; Stop 10/10/16 at 18:59; Status DC Metronidazole 100 ml @ 100 mls/hr Q8HRS IV Last administered on 10/11/16 05: 15; Start 10/10/16 at 17:00; Stop 10/11/16 at 10:14; Status DC Potassium Chloride (KCl Premix 10meq) 100 ml @ 100 mls/hr Q1H IV Last administered on 10/11/16 13:32; Start 10/11/16 at 11:00; Stop 10/11/16 at 12:59 ; Status DC Potassium Chloride (KCl Oral Soln) 40 meq 1X ONCE PO Last administered on 10/11 11:47; Start 10/11/16 at 10:15; Stop 10/11/16 at 10:19; Status DC Cefpodoxime Proxetil 200 mg 200 mg BID PO Last administered on 10/16/16 08:45 ; Start 10/11/16 at 21:00; Stop 10/16/16 at 17:35; Status DC Magnesium Sulfate/ Dextrose (Magnesium Sulfate PREMIX 2GM) 50 ml @ 25 mls/hr 1X ONCE IV Last administered on 10/11/16 16:16; Start 10/11/16 at 15:45; Stop 10/11/16 at 17:44; Status DC Amlodipine Besylate (Norvasc) 10 mg DAILY PO Last administered on 10/16/16 08: 46; Start 10/13/16 at 09:00 Furosemide 20 mg 20 mg 1X ONCE IVP Last administered on 10/13/16 18:15; Start 10/13/16 at 18:15; Stop 10/13/16 at 18:29; Status DC Potassium Chloride (KCl Premix 10meq) 100 ml @ 100 mls/hr Q1H IV Last administered on 10/14/16 13:34; Start 10/14/16 at 09:00; Stop 10/14/16 at 12:59 ; Status DC Loperamide HCl (Imodium) 2 mg PRN Q15MIN PRN PO DIARRHEA; Start 10/14/16 at 20: 00 Potassium Chloride 40 meq 40 meq 1X ONCE PO Last administered on 10/15/16 13: 16; Start 10/15/16 at 10:00; Stop 10/15/16 at 10:01; Status DC Magnesium Sulfate/ Dextrose (Magnesium Sulfate PREMIX 4GM) 100 ml @ 25 mls/hr 1X ONCE IV Last administered on 10/16/16 16:26; Start 10/16/16 at 16:00; Stop 10/16/16 at 19:59; Status DC Active Scripts Active Reported Xanax (Alprazolam) 0.25 Mg Tablet 0.25 Mg PO Q6-8HRS PRN Vitamin E (Vitamin E Acetate) 200 Unit Capsule 200 Unit PO DAILY Simvastatin 40 Mg Tablet 40 Mg PO HS Zoloft (Sertraline Hcl) 50 Mg Tablet 50 Mg PO DAILY Seroquel (Quetiapine Fumarate) 25 Mg Tablet 12.5 Mg PO HS Pantoprazole Sodium 40 Mg Tablet.dr 40 Mg PO DAILY Miralax (Polyethylene Glycol 3350) 119 Gm Powder 17 Gm PO DAILY Lisinopril 20 Mg Tablet 20 Mg PO DAILY Hydrochlorothiazide Tablet (Hydrochlorothiazide) 12.5 Mg Tablet 1 Tab PO DAILY Mucinex (Guaifenesin) 600 Mg Tablet.er 600 Mg PO Vitamin D2 (Ergocalciferol (Vitamin D2)) 50,000 Unit Capsule 1 Cap PO WEEKLY PRN Doxycycline Hyclate 100 Mg Tablet 100 Mg PO BID Colace (Docusate Sodium) 100 Mg Capsule 1 Cap PO BID PRN Calcium 600 + Vit D 400 Softgl (Calcium Carbonate/Vitamin D3) 1 Each Capsule 0.5 Each PO DAILY Aspirin 81 Mg Tab.chew 81 Mg PO DAILY Albuterol Sulfate Neb Soln (Albuterol Sulfate) 1.25 Mg/3 Ml Vial.neb 1 Vial NEB Q6HRS Acidophilus Capsule (L. Acidophilus/Pectin, [place]) 1 Each Capsule 2 Each PO AFTRNOON Vitals/I & O Vital Sign - Last 24 Hours 10/16/16 10/16/16 10/16/16 10/16/16 11:00 11:23 15:00 15:16 Temp 98.0 98.0 Pulse 63 88 Resp 28 24 B/P 114/63 112/60 Pulse Ox 98 99 O2 Delivery Room Air Room Air Room Air O2 Flow Rate 2.0 3.0 2.0 10/16/16 10/16/16 10/16/16 10/16/16 19:00 19:40 19:42 20:00 Temp 97.4 97.4 Pulse 94 Resp 20 B/P 106/56 Pulse Ox 95 98 98 O2 Delivery Nasal Cannula Nasal Cannula Nasal Cannula Nasal Cannula O2 Flow Rate 2.0 2.0 2.0 2.0 10/16/16 10/17/16 10/17/16 10/17/16 22:56 03:18 07:00 07:14 Temp 97.1 98.0 97.7 97.1 98.0 97.7 Pulse 93 90 80 Resp 20 20 18 B/P 108/55 124/70 139/65 Pulse Ox 93 96 94 97 O2 Delivery Room Air Nasal Cannula Nasal Cannula Nasal Cannula O2 Flow Rate 2.0 3.0 2.0 Intake and Output 10/16/16 10/16/16 10/17/16 15:00 23:00 07:00 Intake Total 340 ml 400 ml 0 ml Output Total 800 ml Balance 340 ml -400 ml 0 ml VALENTINA PAIZ MD Oct 17, 2016 09:02
[2016-10-17] MEDS: PANTOPRAZOLE 40 MG TABLET. PO SCH (09:42)
[2016-10-17] MEDS: LISINOPRIL 20 MG TABLET PO SCH (09:42)
[2016-10-17] MEDS: POTASSIUM CHLORIDE 20 MEQ/15 ML ORAL LIQUID. PEG SCH (09:42)
[2016-10-17] MEDS: ASPIRIN 81 MG TAB.CHEW PO SCH (09:42)
[2016-10-17] MEDS: AMLODIPINE BESYLATE 10 MG TABLET PO SCH (09:43)
[2016-10-17] MEDS: SERTRALINE 50 MG TABLET. PO SCH (09:43)
[2016-10-17] MEDS: CALCIUM CARB/VIT D3 500/200 TABLET PO SCH (09:43)
--- NOTE | 2016-10-17 09:43 | PDOC ---
PULMONARY PROGRESS NOTES Subjective PT WITH NO INCREASE SOA Vitals Vital Signs Date Time Temp Pulse Resp B/P Pulse Ox O2 Delivery O2 Flow Rate FiO2 10/17/16 07:14 97 Nasal Cannula 2.0 10/17/16 07:00 97.7 80 18 139/65 97.7 ROS: No Nausea, No Chest Pain, No Abdominal Pain, No Increase Cough General: Alert HEENT: Cervical Dz Lungs: Clear Cardiovascular: S1, S2 Abdomen: Soft, Non-tender Neuro Exam: Alert Extremities: No Edema Skin: Warm Labs Laboratory Tests Test 10/16/16 05:14 10/16/16 16:10 10/17/16 03:25 White Blood Count 8.4x10^3/uL (4.0-11.0) 8.7x10^3/uL (4.0-11.0) Red Blood Count 3.34x10^6/uL (3.50-5.40) 3.29x10^6/uL (3.50-5.40) Hemoglobin 9.5g/dL (12.0-15.5) 9.1g/dL (12.0-15.5) Hematocrit 28.6% (36.0-47.0) 28.6% (36.0-47.0) Mean Corpuscular Volume 86fL (79-100) 87fL (79-100) Mean Corpuscular Hemoglobin 29pg (25-35) 28pg (25-35) Mean Corpuscular Hemoglobin Concent 33g/dL (31-37) 32g/dL (31-37) Red Cell Distribution Width 14.2% (11.5-14.5) 14.5% (11.5-14.5) Platelet Count 261x10^3/uL (140-400) 262x10^3/uL (140-400) Neutrophils (%) (Auto) 71% (31-73) 74% (31-73) Lymphocytes (%) (Auto) 16% (24-48) 14% (24-48) Monocytes (%) (Auto) 8% (0-9) 8% (0-9) Eosinophils (%) (Auto) 4% (0-3) 4% (0-3) Basophils (%) (Auto) 1% (0-3) 0% (0-3) Neutrophils # (Auto) 6.0x10^3uL (1.8-7.7) 6.4x10^3uL (1.8-7.7) Lymphocytes # (Auto) 1.3x10^3/uL (1.0-4.8) 1.3x10^3/uL (1.0-4.8) Monocytes # (Auto) 0.7x10^3/uL (0.0-1.1) 0.7x10^3/uL (0.0-1.1) Eosinophils # (Auto) 0.4x10^3/uL (0.0-0.7) 0.3x10^3/uL (0.0-0.7) Basophils # (Auto) 0.1x10^3/uL (0.0-0.2) 0.0x10^3/uL (0.0-0.2) Sodium Level 144mmol/L (136-145) 146mmol/L (136-145) Potassium Level 3.4mmol/L (3.5-5.1) 3.7mmol/L (3.5-5.1) Chloride Level 106mmol/L (98-107) 108mmol/L (98-107) Carbon Dioxide Level 30mmol/L (21-32) 30mmol/L (21-32) Anion Gap 8 (6-14) 8 (6-14) Blood Urea Nitrogen 6mg/dL (7-20) 9mg/dL (7-20) Creatinine 0.8mg/dL (0.6-1.0) 0.9mg/dL (0.6-1.0) Estimated GFR (Cockcroft-Gault) 67.8 59.2 Glucose Level 87mg/dL (70-99) 89mg/dL (70-99) Calcium Level 8.8mg/dL (8.5-10.1) 8.9mg/dL (8.5-10.1) Magnesium Level 1.3mg/dL (1.8-2.4) 1.6mg/dL (1.8-2.4) 2.3mg/dL (1.8-2.4) Laboratory Tests Test 10/16/16 16:10 2/16/17 03:25 Magnesium Level 1.6mg/dL (1.8-2.4) 2.3mg/dL (1.8-2.4) White Blood Count 8.7x10^3/uL (4.0-11.0) Red Blood Count 3.29x10^6/uL (3.50-5.40) Hemoglobin 9.1g/dL (12.0-15.5) Hematocrit 28.6% (36.0-47.0) Mean Corpuscular Volume 87fL (79-100) Mean Corpuscular Hemoglobin 28pg (25-35) Mean Corpuscular Hemoglobin Concent 32g/dL (31-37) Red Cell Distribution Width 14.5% (11.5-14.5) Platelet Count 262x10^3/uL (140-400) Neutrophils (%) (Auto) 74% (31-73) Lymphocytes (%) (Auto) 14% (24-48) Monocytes (%) (Auto) 8% (0-9) Eosinophils (%) (Auto) 4% (0-3) Basophils (%) (Auto) 0% (0-3) Neutrophils # (Auto) 6.4x10^3uL (1.8-7.7) Lymphocytes # (Auto) 1.3x10^3/uL (1.0-4.8) Monocytes # (Auto) 0.7x10^3/uL (0.0-1.1) Eosinophils # (Auto) 0.3x10^3/uL (0.0-0.7) Basophils # (Auto) 0.0x10^3/uL (0.0-0.2) Sodium Level 146mmol/L (136-145) Potassium Level 3.7mmol/L (3.5-5.1) Chloride Level 108mmol/L (98-107) Carbon Dioxide Level 30mmol/L (21-32) Anion Gap 8 (6-14) Blood Urea Nitrogen 9mg/dL (7-20) Creatinine 0.9mg/dL (0.6-1.0) Estimated GFR (Cockcroft-Gault) 59.2 Glucose Level 89mg/dL (70-99) Calcium Level 8.9mg/dL (8.5-10.1) Medications Active Scripts Medications Dose Route/Sig Days Date Category Xanax (Alprazolam) 0.25 Mg Tablet 0.25 Mg PO Q6-8HRS PRN 10/09/16 Reported Vitamin E (Vitamin E Acetate) 200 Unit Capsule 200 Unit PO DAILY 10/09/16 Reported Simvastatin 40 Mg Tablet 40 Mg PO HS 10/09/16 Reported Zoloft (Sertraline Hcl) 50 Mg Tablet 50 Mg PO DAILY 10/09/16 Reported Seroquel (Quetiapine Fumarate) 25 Mg Tablet 12.5 Mg PO HS 10/09/16 Reported Pantoprazole Sodium 40 Mg Tablet.dr 40 Mg PO DAILY 10/09/16 Reported Miralax (Polyethylene Glycol 3350) 119 Gm Powder 17 Gm PO DAILY 10/09/16 Reported Lisinopril 20 Mg Tablet 20 Mg PO DAILY 10/09/16 Reported Hydrochlorothiazide Tablet (Hydrochlorothiazide) 12.5 Mg Tablet 1 Tab PO DAILY 10/09/16 Reported Mucinex (Guaifenesin) 600 Mg Tablet.er 600 Mg PO 10/09/16 Reported Vitamin D2 (Ergocalciferol (Vitamin D2)) 50,000 Unit Capsule 1 Cap PO WEEKLY PRN 10/09/16 Reported Doxycycline Hyclate 100 Mg Tablet 100 Mg PO BID 10/09/16 Reported Colace (Docusate Sodium) 100 Mg Capsule 1 Cap PO BID PRN 10/09/16 Reported Calcium 600 + Vit D 400 Softgl (Calcium Carbonate/Vitamin D3) 1 Each Capsule 0.5 Each PO DAILY 10/09/16 Reported Aspirin 81 Mg Tab.chew 81 Mg PO DAILY 10/09/16 Reported Albuterol Sulfate Neb Soln (Albuterol Sulfate) 1.25 Mg/3 Ml Vial.neb 1 Vial NEB Q6HRS 10/09/16 Reported Acidophilus Capsule (L. Acidophilus/Pectin, [place]) 1 Each Capsule 2 Each PO AFTRNOON 10/09/16 Reported Impression . 1. Acute onset of dyspnea and wheezing secondary to acute congestive heart failure. 2. Acute congestive heart failure. 3. Klebsiella urinary tract infection. 4. Diarrhea. 5. Alzheimer's dementia. Plan . RESP STATUS IMPROVED D/C PER PCP DORINDA TORRES MD Oct 17, 2016 09:43
--- NOTE | 2016-10-17 10:29 | CARD ---
APPROVED REPORT EXAM: Two-dimensional and M-mode echocardiogram with Doppler and color Doppler. Other Information Quality : Average Rhythm : NSR INDICATION Dyspnea 2D DIMENSIONS RVDd2.6 (2.9-3.5cm)Left Atrium(2D)3.9 (1.6-4.0cm) IVSd0.9 (0.7-1.1cm)Aortic Root(2D)3.0 (2.0-3.7cm) LVDd3.9 (3.9-5.9cm)LVOT Diameter1.9 (1.8-2.4cm) PWd0.9 (0.7-1.1cm)LVDs2.7 (2.5-4.0cm) FS (%) 30.1 %SV38.5 ml LVEF(%)58.0 (>50%) Aortic Valve AoV Peak Carl.131.2cm/sAoV VTI25.3cm AO Peak GR.6.9mmHgLVOT VTI 26.14cm AO Mean GR.4mmHgAVA (VTI)3.00cm2 Mitral Valve MV E Tzcokqkk08.0cm/sMV E Peak Gr.5mmHg MV DECEL [id number] A Ozbsfvbm69.6cm/s MV E Mean Gr.2mmHgMV [id number] E/A Ratio1.0MV A [id number] MVA (PHT)3.06cm2 TDI Lateral E' P. V8.68cm/sMedial E' P. V8.39cm/s E/Lateral E'10.8E/Medial E'11.2 LEFT VENTRICLE The left ventricle is normal size. There is normal left ventricular wall thickness. Left ventricle sy stolic function is normal. The Ejection Fraction is 55-60%. There is normal LV segmental wall motion. The left ventricular diastolic function and filling is normal for age. RIGHT VENTRICLE The right ventricle is normal size. The right ventricular systolic function is normal. ATRIA The left atrium size is normal. The right atrium size is normal. The interatrial septum is intact wit h no evidence for an atrial septal defect or patent foramen ovale as noted on 2-D or Doppler imaging. AORTIC VALVE The aortic valve is not well visualized but appears trileaflet. Doppler and Color Flow revealed no si gnificant aortic regurgitation. There is no significant aortic valvular stenosis. MITRAL VALVE The mitral valve is normal in structure. There is no mitral valve stenosis. Doppler and Color Flow re vealed mild mitral regurgitation. TRICUSPID VALVE The tricuspid valve is normal in structure and function. Doppler and Color Flow revealed no tricuspid valve regurgitation noted. Unable to estimate PA pressure. There is no tricuspid valve stenosis. PULMONIC VALVE The pulmonic valve is not well visualized. Doppler and Color Flow revealed no pulmonic valvular regur gitation. There is no pulmonic valvular stenosis. GREAT VESSELS The aortic root is normal in size. The IVC was not visualized. PERICARDIAL EFFUSION There is no evidence of significant pericardial effusion. Critical Notification Critical Value: No <Conclusion> Left ventricle systolic function is normal. The Ejection Fraction is 55-60%. There is normal LV segmental wall motion. Doppler and Color Flow revealed mild mitral regurgitation. There is no evidence of significant pericardial effusion.
[2016-10-17 10:57] VITALS: BP 128/60
--- NOTE | 2016-10-20 01:38 | DS ---
DATE OF DISCHARGE: 10/17/2016 CHIEF COMPLAINT: Dehydration, sepsis. HOSPITAL COURSE: The patient is an 86-year-old detention patient who presented with dehydration and signs of sepsis. She was diagnosed with a Klebsiella UTI for which she was started on Vantin as per ID consult. Her sepsis resolved fairly quickly. She did have some diarrhea, which apparently had been going on at the detention, was C. diff negative and was treated symptomatically with Imodium. Her electrolytes including magnesium and potassium were repleted and were at normal levels at time of discharge. She was found with moderate protein malnutrition for which supplements were instigated. Dementia with essentially at baseline. PHYSICAL EXAMINATION: Please refer to note from discharge date. DISCHARGE DATE: 10/17/2016. DISCHARGE DISPOSITION: To SNF. DISCHARGE CONDITION: Improved. DISCHARGE DIAGNOSES: Sepsis. Dehydration. Urinary tract infection. DISCHARGE MEDICATIONS: Please refer to MAR. DISCHARGE INSTRUCTIONS: The patient will follow up with PCP in detention. Greater than 30 minutes were spent in arranging discharge. VALENTINA PAIZ MD DR: UR/nts JOB#: [id number] / [id number] Deloris Jones MDD
== END 2016-10-17 13:20 | DRG 871 ==
LOC: ER 10:49 → 5 SOUTH 13:30
PROVIDERS: ADMIT Internal Medicine; ATTEND Internal Medicine
DX: A41.9 Sepsis, unspecified organism (principal); G93.40 Encephalopathy, unspecified; E44.0 Moderate protein-calorie malnutrition; N39.0 Urinary tract infection, site not specified; B96.1 Klebsiella pneumoniae [K. pneumoniae] as the cause of diseases classified elsewhere; E78.00 Pure hypercholesterolemia, unspecified; E83.42 Hypomagnesemia; Z51.5 Encounter for palliative care; E86.0 Dehydration; Z66 Do not resuscitate; E87.6 Hypokalemia; G30.9 Alzheimer's disease, unspecified; F02.80 Dementia in other diseases classified elsewhere, unspecified severity, without behavioral disturbance, psychotic disturbance, mood disturbance, and anxiety; I50.9 Heart failure, unspecified; I11.0 Hypertensive heart disease with heart failure; Z98.2 Presence of cerebrospinal fluid drainage device; Z88.8 Allergy status to other drugs, medicaments and biological substances; Z68.23 Body mass index [BMI] 23.0-23.9, adult; I11.9 Hypertensive heart disease without heart failure
CPT/HCPCS: 36415; 70450; 71010; 80048; 80053; 81001; 83605; 83735; 84132; 84484; 85007; 85027; 87040; 87086; 87186; 87324; 93005; 93306; 94250; 94640; 94760; 96361; 96365; J1650; J2543; J3370; J3475; J3480; J3490; J7030; J7040; J7050; J7060; J7620; 92526; 92610; 97535; 99285-25